=== PATIENT | female | born 1955 | race Caucasian/White ===

== ENCOUNTER 2021-03-26 13:55 | Outpatient (RCR) | payer OTHER, SELFPAY ==
[2021-03-26 14:16] VITALS: BMI 34.8
[2021-03-26 14:20] VITALS: BMI 34.8
== END 2021-06-10 11:32 | disposition home or self-care (01) ==
LOC: ANHDMC 13:55
PROVIDERS: PCP Internal Medicine; Visit Provider Nurse Practitioner
DX: E11.9 Type 2 diabetes mellitus without complications (principal); Z71.3 Dietary counseling and surveillance
CPT/HCPCS: 97802

== ENCOUNTER 2021-05-10 08:33 | Outpatient (CLI) | payer OTHER, SELFPAY ==
--- NOTE | ~2021-05-10 | MM_ITS ---
EXAMINATION: MM screening [facility] BI w [facility] HISTORY: Screening mammogram TECHNIQUE: Craniocaudal and mediolateral oblique 3-D tomosynthesis images were obtained and synthetic 2-D images were generated. CAD analysis was submitted and interpreted. COMPARISON: 09/09/2013, 08/31/2013 BREAST PARENCHYMAL COMPOSITION: The breasts are almost entirely fatty. FINDINGS: There is no evidence of suspicious mass, calcification, or architectural distortion to sugg est malignancy in either breast. There has been no suspicious interval change. IMPRESSION: 1. No mammographic evidence of malignancy. 2. Recommend routine screening mammography in one year. BI-RADS Category 1: Negative Reviewed, dictated and finalized at location A.
--- NOTE | ~2021-05-10 | DEXA_ITS ---
Bone Density Report Name: Heidy Kaufman Age: 65 Sex: Female Ethnicity: White Date of : 1955 Indication: postmenopausal; prior fracture; Referring Provider: Carlota Kumar Study: Bone densitometry was performed. Exam Date: May 10, 2021 Accession number: [id number] Bone Density: Region BMD T-score Z-score Classification AP Spine (L1-L4) 1.161 1.0 2.8 Normal Femoral Neck (Left) 0.962 1.0 2.5 Normal Total Hip (Left) 1.069 1.0 2.3 Normal Total Hip Bilateral Avg 1.064 1.0 2.3 Normal Femoral Neck (Right) 0.966 1.1 2.6 Normal Total Hip (Right) 1.058 1.0 2.2 Normal World Health Organization criteria for BMD impression classify patients as: Normal (T-score at or above -1.0), Osteopenia (T-score between -1.0 and -2.5), or Osteoporosis (T-score at or below -2.5). 10-year Fracture Risk: FRAX not reported because: All T-scores for Spine Total, Hip Total, Femoral Neck at or above -1.0 Clinical Information Provided by Patient: Has had a low trauma fracture Has used the following medications: Vitamin D, Calcium Patient maximum height was 66 Menopause Age: 60 No regular weight bearing exercise Drinks caffeinated beverages Onset of menses at age 14 Number of children 0 Impression: The patient has normal bone mass. The patient has risk factors, including: previous fracture. Discussion: LOW RISK OF FRACTURE; BONE DENSITY IS WELL ABOVE THE MINIMUM DESIRABLE LEVEL AND ABOVE AVERAGE FOR AGE AND SEX AT ALL SKELETAL SITES TESTED. This person's bone density is above expected limits for age and sex. This is rarely clinically significant, but should be pursued if there are significant musculoskeletal complaints. The patient should follow a healthful lifestyle (good nutrition with adequate calcium and vitamin D, and appropriate weight-bearing exercise). Follow-Up: Consider repeating this study in 5 years or sooner if there is some new clinical indication. Reported by: [facility] on 05/10/2021 9:24:00 AM. Reviewed, dictated and finalized at location AJulisa PIMENTEL
== END 2021-05-10 08:34 | disposition home or self-care (01) ==
LOC: ANHIMG 08:35
PROVIDERS: PCP Internal Medicine; Visit Provider Nurse Practitioner
DX: Z78.0 Asymptomatic menopausal state (principal); Z12.31 Encounter for screening mammogram for malignant neoplasm of breast
CPT/HCPCS: 77063; 77067; 77080

== ENCOUNTER 2021-07-31 13:42 | Emergency (ER) | payer MEDICARE, MEDICAID, SELFPAY ==
--- NOTE | ~2021-07-31 | XR_ITS ---
XR chest 2V DATE: 07/31/2021 14:39 INDICATION: Cough, chest congestion TECHNIQUE: 2 views COMPARISON: None FINDINGS: Cardiomegaly. There is mild pulmonary vascular congestion and redistribution suggesting mil d congestive heart failure. Minimal infiltrate or atelectasis is suggested in the lower lung zones. There is minimal if any pleur al effusion. No pneumothorax. No hilar or mediastinal enlargement. There is prominent levoscoliosis and degenerative change of the thoracolumbar spine. Diffuse osteopen ia. IMPRESSION: Cardiomegaly, mild pulmonary vascular congestion, suggesting mild congestive heart failur e Minimal infiltrate or atelectasis is suggested in the lower lung zones Reviewed, dictated and finalized at location A. IMPRESSION: Cardiomegaly, mild pulmonary vascular congestion, suggesting mild c ongestive heart failure Minimal infiltrate or atelectasis is suggested in the lower lung zones
--- NOTE | 2021-07-31 13:58 | ED.URI ---
HPI - URI/Sore Throat General Chief Complaint: Upper Respiratory Infection Stated Complaint: Chest Congestion Time Seen by Provider: 07/31/21 13:58 Source: patient, family, RN notes reviewed and old records reviewed Mode of arrival: ambulatory Limitations: no limitations History of Present Illness HPI Narrative: 66-year-old female accompanied by family member presents to [facility] care with complaints of ear fullness, sinus congestion, occasional loose cough. Patient denies any fevers,chills or sweats or any body aches. Patient has had COVID vaccinations and does reside in an assistive living facility.Patient denies any shortness of breath or any tachypnea, denies any body aches, denies any swelling of lower extremities.Patient did have pneumonia when in third grade that required insertion of chest tubes to drain lungs. Pertinent past history: pneumonia Related Data Home Medications Medication Instructions Recorded Confirmed ergocalciferol (vitamin D2) 1.25 mcg PO WEEKLY 07/31/21 07/31/21 Allergies Allergy/AdvReac Type Severity Reaction Status Date / Time Penicillins AdvReac Intermediate Hives Verified 07/31/21 14:24 Review of Systems Review of Systems: CONSTITUTIONAL: Denies fever, chills, or sweats. EYES: Denies visual changes, redness, or discharge. ENT: Positive rhinorrhea, congestion, no sore throat, bilateral ear fullness. CARDIOVASCULAR: Denies chest pain, palpitations, or edema. RESPIRATORY: Positive cough no dyspnea. GASTROINTESTINAL: Denies abdominal pain, nausea, vomiting, or diarrhea. GENITOURINARY: Denies dysuria or hematuria. SKIN: Denies rash or itching. MUSCULOSKELETAL: Denies back pain, joint pain, or myalgia. NEUROLOGIC: Denies headache, numbness, or weakness. PSYCHIATRIC: Denies anxiety or depression. All systems reviewed & are unremarkable except as noted in HPI and below PMFSH Past Medical History Medical History (Updated 07/31/21 @ 15:11 by Concha Salgado NP) Allergies Elevated cholesterol Hypertension Type 2 diabetes mellitus without complications Surgical History Surgical History (Updated 07/31/21 @ 14:36 by Concha Salgado NP) History of cataract surgery 2005 History of lung surgery 1965 History of tonsillectomy and adenoidectomy Family History Family History Father Hypertension Cerebrovascular accident Mother Diabetes mellitus Cerebrovascular accident Sibling Diabetes mellitus Hypertension Cerebrovascular accident Social History Social History Smoking status: Never smoker Alcohol intake: never Substance use: never Spiritual care concerns: No Comments At time of signature, agree with nursing past medical, surgical, social and family history. There is no relevant family history pertinent to the presenting complaint Exam Narrative: GENERAL: Well-appearing, well-nourished, and in no acute distress. HEAD: Normocephalic, atraumatic. EYES: PERRLA and EOMI. ENT: Nares red with clear rhinorrhea, no epistaxis. Mucous membranes moist.TM's normal with dull light reflex, some dry exudates in ear canals, throat with mild redness no lesions or exudates, tonsils absent, post nasal drainage NECK: Supple.no lymphadenopathy CHEST: late expiratory wheeze left upper lobe on auscultation decreased in bases. No respiratory distress.SAO2 95% on room air HEART: Regular rate and rhythm. No murmur heard. Normal peripheral pulses. ABDOMEN: Soft, nontender, nondistended, normal active bowel sounds. EXTREMITIES: Normal range of motion. No edema. SKIN: Warm, dry, no rash. NEURO: No focal deficits. Alert and oriented x3. Course Vital Signs Vital signs: Vital Signs Temperature 36.8 C 07/31/21 14:04 Pulse Rate 102 H 07/31/21 14:04 Respiratory Rate 18 07/31/21 14:04 Blood Pressure 161/77 H 07/31/21 14:04 Pulse Oximetry 95 07/31/21 14:04 Temperatur
[2021-07-31 14:04] VITALS: BP 161/77; PULSE 102; RESP 18; TEMP 36.8; O2SAT 95
[2021-08-01 17:37] LABS: SARS-CoV-2 RNA PCR Negative
== END 2021-07-31 15:28 | disposition home or self-care (01) ==
PROVIDERS: Emergency Provider Registered Nurse; PCP Internal Medicine
DX: J06.9 Acute upper respiratory infection, unspecified (principal); R91.8 Other nonspecific abnormal finding of lung field; Z20.822 Contact with and (suspected) exposure to COVID-19; E78.00 Pure hypercholesterolemia, unspecified; I10 Essential (primary) hypertension; E11.9 Type 2 diabetes mellitus without complications
CPT/HCPCS: 71046; 87426; 99213; C9803; G0463; U0003; U0005

== ENCOUNTER 2021-08-12 10:48 | Outpatient (CLI) | payer MEDICARE, MEDICAID, SELFPAY ==
--- NOTE | ~2021-08-12 | CT_ITS ---
EXAMINATION: CTA chest PE protocol DATE: 08/12/2021 11:25 INDICATION: Hypoxemia. TECHNIQUE: Computed tomography angiography (CTA) of the chest was performed with 100 mL Omnipaque-350 intravenous contrast timed to evaluate the pulmonary arteries. Coronal maximum intensity projection 3D-reconstructions were created by the technologist. Automated exposure control and iterative reconst ruction technique were employed. The dose-length product was 578.78 mGy-cm. COMPARISON: Chest 2 views 07/31/2021 FINDINGS: There is mild atelectasis bilaterally. A calcified right lung nodule and calcified right hi lar lymph nodes are consistent with old granulomatous disease. No pleural effusion. There is a 7 mm n odule in right thyroid lobe, likely not clinically significant. Cardiomegaly is noted. No pericardial effusion. There are coronary artery calcifications. There is no pulmonary embolus. There is a 15 mm cyst in the liver. There is thoracolumbar levoscoliosis and severe spondylosis. IMPRESSION: 1. No pulmonary embolus. Sensitivity is severely decreased in the segmental arteries by motion artifa ct. 2. Cardiomegaly. Reviewed, dictated and finalized at location A. IMPRESSION: 1. No pulmonary embolus. Sensitivity is severely decreased in the segmental art eries by motion artifact. 2. Cardiomegaly.
[2021-08-12 11:24] LABS: Estimated Glomerular Filt Rate 41
[2021-08-12 12:10] LABS: Basophils Percent Auto 0.2 % (0.2-1.2); Eosinophils Absolute Auto 0.5 K/mm3 (0-0.3); Eosinophils Percent Auto 3.8 % (0-4.4); Hematocrit 46.3 % (37.0-47.0); Hemoglobin 14.5 g/dL (12.0-15.0); Immature Granulocyte Absolute 0.11 K/mm3 (0.00-0.031); Immature Granulocyte Percent A 0.8 % (0-0.5); Lymphocytes Absolute Auto 2.63 K/mm3 (0.9-3.2); Lymphocytes Percent Auto 19.1 % (18.3-44.2); Mean Corpuscular HGB Conc 31.3 g/dl (32-36); Mean Corpuscular Hemoglobin 29.2 pg (26-34); Mean Corpuscular Volume 93.3 fl (80-100); Mean Platelet Volume 10.3 fl (7.4-10.4); Monocytes Absolute Auto 0.8 K/mm3 (0.1-0.6); Monocytes Percent Auto 5.5 % (2.6-8.5); Neutrophils Absolute Auto 9.7 K/mm3 (1.3-6.7); Neutrophils Percent Auto 70.6 % (45.5-73.1); Platelet Count Result 233 k/mm3 (150-375); Red Blood Count 4.96 M/mm3 (4.2-5.4); Red Cell Distribution Width 13.5 % (11.5-14.5); White Blood Count 13.7 K/mm3 (4.5-10.0)
[2021-08-12 12:24] LABS: Alanine Aminotransferase 39 U/L (4-35); Albumin Level 4.7 g/dL (3.5-5.1); Alkaline Phosphatase 101 U/L (38-126); Anion Gap 7 mmol/L (8-16); Aspartate Amino Transferase 36 U/L (14-36); Bilirubin,Total 1.1 mg/dL (0.2-1.3); Blood Urea Nitrogen 38 mg/dL (7-17); Calcium 10.8 mg/dL (8.4-10.2); Carbon Dioxide 32 mmol/L (22-30); Chloride 100 mmol/L (98-107); Estimated Glomerular Filt Rate 45; Glucose 181 mg/dL (65-110); Potassium 5.4 mmol/L (3.4-5.0); Sodium 139 mmol/L (137-145)
[2021-08-12 12:34] LABS: NT Pro B Type Natriuretic Pept 36 pg/mL (5-100)
== END 2021-08-12 10:49 | disposition home or self-care (01) ==
PROVIDERS: PCP Internal Medicine; Visit Provider Nurse Practitioner
DX: R09.02 Hypoxemia (principal); Z76.89 Persons encountering health services in other specified circumstances; R53.82 Chronic fatigue, unspecified; I50.9 Heart failure, unspecified
CPT/HCPCS: 71275; 80053; 83880; 84443; 85025; Q9967

== ENCOUNTER 2021-08-14 08:28 | Outpatient (CLI) | payer MEDICARE, MEDICAID, SELFPAY ==
--- NOTE | 2021-08-14 08:57 | ECHO_ITS ---
Patient Info Name: Heidy Kaufman Age: 66 years : 1955 Gender: Female Ht: 66 in Wt: 217 lbs BSA: 2.18 m2 HR: 103 bpm BP: 148 / 97 mmHg Heart Rhythm: Sinus Rhythm, Tachycardia Technical Quality: Fair Exam Date: 08/14/2021 9:18 AM Exam Location: [facility] Patient Status: Outpatient Admit Date: 08/14/2021 Staff Ordering Physician: Carlota Kumar NP Watch Electrician: Meghann Gonzalez RDCS Attending Provider: Carlota Kumar NP Referring Physician: Stacy ALANIS; Exam Type: CA echo doppler color flow Study Info Indications - heart failure Complete two-dimensional, color flow and Doppler transthoracic echocardiogram is performed. Summary 1. Complete two-dimensional, color flow and Doppler transthoracic echocardiogram is performed. 2. Normal left ventricular size with mild concentric hypertrophy. Good systolic function of all segments, ejection fraction 60-65%, with no segmental wall motion abnormalities. Diastolic dysfunction grade 1 is present. 3. No significant valve disease. 4. Mild pulmonary hypertension, estimated pulmonary arterial systolic pressure is 41 mmHg. 5. Normal sinus rhythm. Left Ventricle Left ventricular chamber dimension is normal. Left ventricular systolic function is normal, estimated at 60-65%. There is mildly increased left ventricular wall thickness. Left ventricular septal wall motion is normal. The left ventricular diastolic function is grade I diastolic dysfunction. Right Ventricle Right ventricular chamber dimension is normal. Right ventricular systolic function is normal. Left Atria Left atrial chamber dimension is normal. Right Atria Right atrial chamber dimension is normal. Aortic Valve The aortic valve is trileaflet. There is no aortic valve sclerosis. There is no aortic valve stenosis. There is no aortic valve regurgitation. Pulmonic Valve The pulmonic valve is normal. There is no pulmonic valve stenosis. There is trace pulmonic regurgitation. Mitral Valve The mitral valve has normal leaflets. There is no mitral valve stenosis. There is trace mitral valve regurgitation. Tricuspid Valve The tricuspid valve leaflets are normal. There is no significant tricuspid valve stenosis. There is trace tricuspid valve regurgitation. Mild pulmonary hypertension, estimated pulmonary arterial systolic pressure is 41 mmHg. Pericardium/Pleural The pericardium appears normal. There is no pericardial effusion. Inferior Vena Cava Normal inferior vena cava with >50% collapse upon inspiration consistent with Empty right atrial pressure, 10 mmHg. Aorta The aortic root size at the sinus of Valsalva is normal. The prox ascending aorta size is normal. Left Ventricular Outflow Tract Name Value Normal LVOT 2D LVOT Diameter 2.0 cm LVOT Doppler LVOT Peak Gradient 7 mmHg LVOT Mean Gradient 4 mmHg LVOT VTI 20 cm LVOT VTI/AV VTI Ratio 0.8 LVOT Stroke Volume 59 ml LVOT CO
== END 2021-08-14 08:29 | disposition home or self-care (01) ==
PROVIDERS: PCP Internal Medicine; Visit Provider Nurse Practitioner
DX: I50.9 Heart failure, unspecified (principal); I27.20 Pulmonary hypertension, unspecified
CPT/HCPCS: 93306

== ENCOUNTER 2021-08-15 10:01 | Outpatient (CLI) | payer MEDICARE, MEDICAID, SELFPAY ==
--- NOTE | 2021-08-15 13:05 | WPDPFTINT ---
PFT Procedure Performed PFT Procedure Performed Plethysmography (Lung Vol) Diffusing Cap (DLCO) Flow Vol Loop Spirometry w/o Bronchodil PFT Interpretation This is a pulmonary function test with spirometry, plethysmography and diffusing capacity. The test was performed and results interpreted in accordance with the 2019 and 2005 ATS/ERS Task Force guidelines respectively using the Global Lung Function Initiative-2012 reference equations. Patient demonstrated good effort and cooperation. Reproducibility criteria were met. The quality of the pre bronchodilator spirometry maneuver was Grade A. Of note the patient did the testing to the best of her ability but did have difficulty following directions. Findings Spirometry: The contour the inspiratory and expiratory flow tracing are normal. The FVC is 1.48 L, 46% predicted. The FEV1 is 1.27 L, 50% predicted. The FEV1: FVC ratio was 86%. Plethysmography: The total lung capacity is 3.95 L, 74% predicted. The functional residual capacity is 1.99 L, 65% predicted. The residual volume is 1.92 L, 88% predicted. Diffusing capacity: The absolute diffusion capacity is 14.3, 65% predicted. The diffusing capacity corrected for alveolar volume is 5.01, 117% predicted. Impression: There is a moderately severe restrictive ventilatory abnormality. The spirometry is normal without evidence of an obstructive abnormality. The absolute diffusing capacity is mildly decreased and normalizes when corrected for alveolar volume. There are no prior studies for comparison
== END 2021-08-15 10:02 | disposition home or self-care (01) ==
LOC: ANHPFT 10:04
PROVIDERS: PCP Internal Medicine; Visit Provider Nurse Practitioner
DX: R06.02 Shortness of breath (principal)
CPT/HCPCS: 94375; 94726; 94729

== ENCOUNTER 2021-08-23 13:23 | Outpatient (CLI) | payer MEDICARE, MEDICAID, SELFPAY ==
--- NOTE | ~2021-08-23 | NM_ITS ---
EXAMINATION: NM pulmonary perfusion DATE: 08/23/2021 14:14 INDICATION: Hypoxemia. TECHNIQUE: 5.5 mCi Tc-99m MAA was administered intravenously for perfusion images. Scintigraphic jaswinder ges of the chest were obtained. COMPARISON: Chest 2 views 08/23/2021, chest CT 08/12/2021 FINDINGS: Perfusion images show small defects bilaterally. IMPRESSION: 1. Pulmonary embolism absent (low probability for pulmonary embolism). Reviewed, dictated and finalized at location A.
--- NOTE | ~2021-08-23 | XR_ITS ---
XR chest 2V 08/23/2021 14:10 Indication: Hypoxemia Procedure: PA and lateral views of the chest Comparison: 07/31/2021 Findings: Patchy bibasilar airspace disease, compatible with pneumonia. No pleural effusion or pneumo thorax. No acute osseous abnormality. There is scoliosis. Impression: 1: Patchy bibasilar airspace disease, compatible with pneumonia. Reviewed, dictated and finalized at location A. Impression: 1: Patchy bibasilar airspace disease, compatible with pneumonia.
== END 2021-08-23 13:24 | disposition home or self-care (01) ==
LOC: ANHIMG 13:24
PROVIDERS: PCP Internal Medicine; Visit Provider Internal Medicine
DX: R09.02 Hypoxemia (principal); R91.8 Other nonspecific abnormal finding of lung field
CPT/HCPCS: 71046; 78580; A9540

== ENCOUNTER 2021-10-28 07:53 | Outpatient (CLI) | payer MEDICARE, MEDICAID, SELFPAY ==
--- NOTE | 2021-11-07 12:36 | WPDSLEEPSTUD ---
Sleep Study Date of Study: 10/28/21 <Sabrina Jain DO - Last Filed: 11/07/21 17:12> Ordering Provider: Arnold Martinez MD <Sabrina Jain DO - Last Filed: 11/07/21 17:12> Interpreting Physician: Sabrina Jain DO <Sabrina Jain DO - Last Filed: 11/07/21 17:12> Sleep Study Type: CPAP Titration <Sabrina Jain DO - Last Filed: 11/07/21 17:12> Height: 1.68 m <Sabrina Jain DO - Last Filed: 11/07/21 17:12> Weight: 100.244 kg <Sabrina Jain DO - Last Filed: 11/07/21 17:12> Body Mass Index: 35.6 <Sabrina Jain DO - Last Filed: 11/07/21 17:12> Neck Circumference (inches): 17.5 <Sabrina Jain DO - Last Filed: 11/07/21 17:12> [place]: 14 <Sabrina Jain DO - Last Filed: 11/07/21 17:12> Reason for Sleep Study Residual AHI of 18.4 on CPAP 10 cm H2O. <Sabrina Jain DO - Last Filed: 11/07/21 17:12> Sleep History The patient is a 66 y/o female that had a HSAT done on 09/12/2020 at [facility] in [place], [place] that showed an AHI 104.6 and a central apnea index of 0. Her lowest desaturation was 43%. She was prescribed CPAP 10 cm H2O. She was recently placed on home oxygen at 2 lpm to use when exerting herself. She does not use it every day. She states that she sleeps better with the CPAP. She rarely awakens from sleep short of breath. She rarely awakens at night with heartburn, belching or cough. She frequently snores loud enough that others complain. She occasionally has trouble sleeping when she has a cold. She rarely wakes up gasping for air throughout the night. She frequently has breathing problems at night observed by others. She rarely sweats excessively at night. She denies noticing heart palpitations or irregular heartbeats during the night. She occasionally falls asleep during the day. She denies sleep paralysis, cataplexy and hypnagogic / hypnopompic hallucinations. She rarely has nightmares. She rarely has thoughts racing through her mind. She denies feeling sad or depressed. She frequently has anxiety. She occasionally notices parts of her body jerk. She occasionally kicks during the night. She rarely has crawling and aching feelings in her legs. She denies having leg pain during the night. She goes to bed at 10:00 p.m. on both weekdays and weekends. It takes her 5-10 minutes to fall asleep. She usually does not wake up throughout the night. If she does, she will use the restroom and it can take up to 30 minutes to fall back asleep. She wakes up at 6:00 a.m. on weekdays and between 6 and 7:00 a.m. on the weekends. She typically gets 6 hours of sleep per night. She will stay in bed for 10-15 minutes after waking up in the morning. She currently lives alone. She does not consume any caffeinated beverages within 2 hours of bedtime. She does not engage in physical exercise before bedtime. She will watch television before falling asleep. She will take naps in the afternoon or the evening and they are refreshing. She denies consuming any caffeinated beverages throughout the day. She denies tobacco, alcohol and recreational drug use. CPAP Compliance Data Time Range: 07/22/2021-10/19/2021 Pressure Setting: CPAP 10 cm H2O Days Used:84/90 days % of days > 4 hours:44% Residual AHI: 18.4 Leak: 33.1 L/min <Sabrina Jain DO - Last Filed: 11/07/21 17:12> [facility] Past Medical History Medical History: Medical History Allergies CHF (congestive heart failure) CKD (chronic kidney disease) Elevated cholesterol Hypertension Type 2 diabetes mellitus without complications <Sabrina Jain DO - Last Filed: 11/07/21 17:12> Surgical History Surgical History: Surgical History History of cataract surgery 2004 History of lung surgery 1965 History
[2021-11-07 17:03] VITALS: BMI 35.6
== END 2021-10-29 06:03 ==
LOC: ANHCSM 07:56
PROVIDERS: PCP Internal Medicine; Visit Provider Internal Medicine Pulmonary Disease
DX: G47.33 Obstructive sleep apnea (adult) (pediatric) (principal); R09.02 Hypoxemia
CPT/HCPCS: 95811

== ENCOUNTER 2021-11-18 08:20 | Outpatient (CLI) | payer MEDICARE, MEDICAID, SELFPAY ==
--- NOTE | 2021-11-26 11:57 | WPDSLEEPSTUD ---
Sleep Study Date of Study: 11/18/21 <Sabrina Jain DO - Last Filed: 11/26/21 12:39> Ordering Provider: RENITA Bai <Sabrina Jain DO - Last Filed: 11/26/21 12:39> Interpreting Physician: Sabrina Jain DO <Sabrina Jain DO - Last Filed: 11/26/21 12:39> Sleep Study Type: BiPAP Titration <Sabrina Jain DO - Last Filed: 11/26/21 12:39> Height: 1.68 m <Sabrina Jain DO - Last Filed: 11/26/21 12:39> Weight: 102.058 kg <Sabrina Jain DO - Last Filed: 11/26/21 12:39> Body Mass Index: 36.3 <Sabrina Jain DO - Last Filed: 11/26/21 12:39> Neck Circumference (inches): 17.5 <Sabrina Jain DO - Last Filed: 11/26/21 12:39> [place]: 17 <Sabrina Jain DO - Last Filed: 11/26/21 12:39> Reason for Sleep Study The patient had an HSAT in August 2020 that showed an AHI of 104.6 which is consistent with severe PAUL. The patient has been on CPAP 10 cm with a residual AHI of 18.4. She had a PAP Titration study on 10/28/2021 where the patient was started on CPAP 5 cm and titrated to 19 cm. She spent the majority of the study awake. She was able to achieve REM starting on 15 cm. There was no optimal pressure found. I recommend that the patient have a BPAP Titration starting at 12/8 cm H2O. <Sabrina Jain DO - Last Filed: 11/26/21 12:39> Sleep History The patient is a 66 y/o female that had a HSAT done on 09/12/2020 at [facility] in [place], [place] that showed an AHI 104.6 and a central apnea index of 0. Her lowest desaturation was 43%. She was prescribed CPAP 10 cm H2O. She was recently placed on home oxygen at 2 lpm to use when exerting herself. She does not use it every day. She states that she sleeps better with the CPAP. She rarely awakens from sleep short of breath. She rarely awakens at night with heartburn, belching or cough. She frequently snores loud enough that others complain. She occasionally has trouble sleeping when she has a cold. She rarely wakes up gasping for air throughout the night. She frequently has breathing problems at night observed by others. She rarely sweats excessively at night. She denies noticing heart palpitations or irregular heartbeats during the night. She occasionally falls asleep during the day. She denies sleep paralysis, cataplexy and hypnagogic / hypnopompic hallucinations. She rarely has nightmares. She rarely has thoughts racing through her mind. She denies feeling sad or depressed. She frequently has anxiety. She occasionally notices parts of her body jerk. She occasionally kicks during the night. She rarely has crawling and aching feelings in her legs. She denies having leg pain during the night. She goes to bed at 10:00 p.m. on both weekdays and weekends. It takes her 5-10 minutes to fall asleep. She usually does not wake up throughout the night. If she does, she will use the restroom and it can take up to 30 minutes to fall back asleep. She wakes up at 6:00 a.m. on weekdays and between 6 and 7:00 a.m. on the weekends. She typically gets 6 hours of sleep per night. She will stay in bed for 10-15 minutes after waking up in the morning. She currently lives alone. She does not consume any caffeinated beverages within 2 hours of bedtime. She does not engage in physical exercise before bedtime. She will watch television before falling asleep. She will take naps in the afternoon or the evening and they are refreshing. She denies consuming any caffeinated beverages throughout the day. She denies tobacco, alcohol and recreational drug use. CPAP Compliance Data Time Range: 07/22/2021-10/19/2021 Pressure Setting: CPAP 10 cm H2O Days Used:84/90 days % of days > 4 hours:44% Residual AHI: 18.4 Leak: 33.1 L/min <Sabrina Jain, - Last Filed: 11/26/21 12:39> [facility] Past Medical History Medical History: Medical History (Reviewed 11/26/21 @ 1
[2021-11-26 11:58] VITALS: BMI 36.3
== END 2021-11-19 07:17 | disposition home or self-care (01) ==
LOC: ANHCSM 08:22
PROVIDERS: PCP Internal Medicine; Visit Provider Physician Assistant
DX: G47.31 Primary central sleep apnea (principal); G47.61 Periodic limb movement disorder
CPT/HCPCS: 95811

== ENCOUNTER 2021-12-09 07:42 | Outpatient (CLI) | payer MEDICARE, MEDICAID, SELFPAY ==
--- NOTE | 2021-12-16 14:59 | WPDSLEEPSTUD ---
Sleep Study Date of Study: 12/09/21 Ordering Provider: Arnold Martinez MD Interpreting Physician: Lizzie Morgan MD Sleep Study Type: ASV Height: 1.68 m Weight: 101.605 kg Body Mass Index: 36.1 Neck Circumference (inches): 18 [place]: 16 Reason for Sleep Study 09/12/2020 - HST with AHI 104.6, minimum saturation 43%, avg saturation 87%; no central events. She was treated with CPAP 10 cm and O2 was added in the daytime for hypoxemia. 08/14/2021 - Echo; EF 60-65%. 10/28/2021 -CPAP titration without optimal pressure, attempted 5 cm to 19 cm 11/18/2021 - BiPAP titration without optimal pressure; treatment emergent central apneas occurred consistent with complex sleep apnea. Patient presents now for ASV titration. Sleep History Heidy Kaufman is a 66 year old female with a home sleep test at [facility] in [place], [place] 09/12/2020 showing an AHI 104.6 and a central apnea index of 0. Her lowest desaturation was 43%. She was prescribed CPAP 10 cm H2O. She was then placed on home oxygen at 2 lpm to use when exerting herself. She does not use it every day. She states that she sleeps better with the CPAP. She rarely awakens from sleep short of breath. She rarely awakens at night with heartburn, belching or cough. She frequently snores loud enough that others complain. She occasionally has trouble sleeping when she has a cold. She rarely wakes up gasping for air throughout the night. She frequently has breathing problems at night observed by others. She rarely sweats excessively at night. She denies noticing heart palpitations or irregular heartbeats during the night. She occasionally falls asleep during the day. She denies sleep paralysis, cataplexy and hypnagogic / hypnopompic hallucinations. She rarely has nightmares. She rarely has thoughts racing through her mind. She denies feeling sad or depressed. She frequently has anxiety. She occasionally notices parts of her body jerk. She occasionally kicks during the night. She rarely has crawling and aching feelings in her legs. She denies having leg pain during the night. She goes to bed at 10:00 p.m. on both weekdays and weekends. It takes her 5-10 minutes to fall asleep. She usually does not wake up throughout the night. If she does, she will use the restroom and it can take up to 30 minutes to fall back asleep. She wakes up at 6:00 a.m. on weekdays and between 6 and 7:00 a.m. on the weekends. She typically gets 6 hours of sleep per night. She will stay in bed for 10-15 minutes after waking up in the morning. She currently lives alone. She does not consume any caffeinated beverages within 2 hours of bedtime. She does not engage in physical exercise before bedtime. She will watch television before falling asleep. She will take naps in the afternoon or the evening and they are refreshing. She denies consuming any caffeinated beverages throughout the day. She denies tobacco, alcohol and recreational drug use. CPAP Compliance Data Time Range: 07/22/2021-10/19/2021 Pressure Setting: CPAP 10 cm H2O Days Used:84/90 days % of days > 4 hours:44% Residual AHI: 18.4 Leak: 33.1 L/min After using CPAP at 10 cm, she had a CPAP titration 10/28/21 and a BIPAP titration 11/18/2021 with treatment emergent central apneas. She has a normal EF. She now presents for an ASV titration. [facility] Past Medical History Medical History (Updated 12/16/21 @ 15:54 by Lizzie Morgan MD) Allergies CHF (congestive heart failure) CKD (chronic kidney disease) Elevated cholesterol Hypertension PAUL (obstructive sleep apnea) Periodic limb movement disorder Type 2 diabetes mellitus without complications Surgical History Surgical History History of cataract surgery 2004 History of lung surgery 1965 History of tonsillectomy and adenoidectomy Family History Family History Father Hypertensi
[2021-12-17 15:47] VITALS: BMI 36.1
== END 2021-12-10 07:06 | disposition home or self-care (01) ==
LOC: ANHCSM 07:43
PROVIDERS: PCP Internal Medicine; Visit Provider Internal Medicine Pulmonary Disease
DX: G47.31 Primary central sleep apnea (principal); G47.61 Periodic limb movement disorder; Z68.36 Body mass index [BMI] 36.0-36.9, adult
CPT/HCPCS: 95811

== ENCOUNTER 2022-06-23 07:57 | Outpatient (CLI) | payer MEDICARE, MEDICAID, SELFPAY ==
--- NOTE | ~2022-06-23 | MM_ITS ---
EXAMINATION: MM screening [facility] BI w keeley HISTORY: Screening mammogram TECHNIQUE: Craniocaudal and mediolateral oblique 3-D tomosynthesis images were obtained and synthetic 2-D images were generated. CAD analysis was submitted and interpreted. COMPARISON: 05/10/2021, 09/09/2013, 08/31/2013 BREAST PARENCHYMAL COMPOSITION: There are scattered areas of fibroglandular density. FINDINGS: There is no suspicious mass, calcification, or architectural distortion to suggest malignan cy in either breast. There has been no suspicious interval change. IMPRESSION: 1. No mammographic evidence of malignancy. 2. Recommend routine screening mammography in one year. BI-RADS Category 1: Negative Reviewed, dictated and finalized at location A.
== END 2022-06-23 07:58 | disposition home or self-care (01) ==
LOC: ANHIMG 08:00
PROVIDERS: PCP Internal Medicine; Visit Provider Internal Medicine
DX: Z12.31 Encounter for screening mammogram for malignant neoplasm of breast (principal)
CPT/HCPCS: 77063; 77067

== ENCOUNTER 2022-08-07 12:30 | Outpatient (CLI) | payer MEDICARE, MEDICAID, SELFPAY ==
[2022-08-07 13:00] VITALS: PULSE 100; O2SAT 92
[2022-08-07 13:01] VITALS: O2SAT 87
[2022-08-07 13:02] VITALS: O2SAT 87
[2022-08-07 13:03] VITALS: PULSE 124; O2SAT 91
[2022-08-07 13:15] VITALS: PULSE 99; O2SAT 93
--- NOTE | 2022-08-07 15:23 | HOMEO2EVAL ---
Evaluation was performed at [facility] Home Oxygen Evaluation RC: Home Oxygen (O2) Evaluation Start: 08/07/22 15:21 Freq: Status: Active Protocol: RPE Activity Type Activity Date Activity User E-sign Co-sign Detail Recorded Client Recorded Date Recorded By Document 08/07/22 13:00 MARITZA [email or web address] 08/07/22 15:23 MARITZA Document 08/07/22 13:01 MARITZA [email or web address] 08/07/22 15:23 MARITZA Document 08/07/22 13:02 MARITZA [email or web address] 08/07/22 15:23 MARITZA Document 08/07/22 13:03 MARITZA [email or web address] 08/07/22 15:23 MARITZA Document 08/07/22 13:15 MARITZA [email or web address] 08/07/22 15:23 MARITZA 08/07/22 08/07/22 08/07/22 13:00 13:01 13:02 Home O2 Evaluation [Oxygen] -Test Phase Resting Exercise Exercise -Oxygen Delivery Room Air Room Air Nasal Cannula -Oxygen Flow Rate (L/min) 1 [Pulse Oximetry] -Pulse Oximetry (90-100 %) 92 87 L 87 L [Pulse Rate] -Pulse Rate (60-100 beats/min) 100 [Evaluation] -Activity Tolerance [Exercise] -Ambulation Distance (feet) -Ambulation Distance (meters) [Comments] -Home Oxygen Evaluation Comments [Charges] -Treatment Charges O2 Evaluation - Outpatient 08/07/22 08/07/22 13:03 13:15 Home O2 Evaluation [Oxygen] -Test Phase Exercise Resting -Oxygen Delivery Nasal Cannula Room Air -Oxygen Flow Rate (L/min) 2 [Pulse Oximetry] -Pulse Oximetry (90-100 %) 91 93 [Pulse Rate] -Pulse Rate (60-100 beats/min) 124 H 99 [Evaluation] -Activity Tolerance Excellent [Exercise] -Ambulation Distance (feet) 800 -Ambulation Distance (meters) 243.82 [Comments] -Home Oxygen Evaluation Comments Pt requires 2L O2 with activity. [Charges] -Treatment Charges
== END 2022-08-07 12:31 | disposition home or self-care (01) ==
LOC: ANHPFT 12:32
PROVIDERS: PCP Internal Medicine; Visit Provider Internal Medicine Pulmonary Disease
DX: R06.02 Shortness of breath (principal)
CPT/HCPCS: 94618

== ENCOUNTER 2022-09-29 07:15 | Outpatient (CLI) | payer MEDICARE, MEDICAID, SELFPAY ==
--- NOTE | ~2022-09-29 | NM_ITS ---
EXAMINATION: NM bone scan whole body DATE: 09/29/2022 11:28 INDICATION: Hypercalcemia TECHNIQUE: 25.7 mCi Tc-99m HDP was administered intravenously. Delayed whole-body scintigrams were o btained. COMPARISON: Chest CT dated 08/12/2021 and chest radiograph dated 08/23/2021 FINDINGS: Mild joint centered likely degenerative uptake at the bilateral acromioclavicular joints, the right w rist and at the left knee and forefoot. Mild uptake along the anterior right humeral neck which corre sponds on prior chest radiograph to dystrophic calcification versus degenerative loose bodies. There is a moderate thoracolumbar levoscoliosis with mild uptake at a chronic compression fracture of T10. No other suspicious bone lesions identified. IMPRESSION: 1. No bone lesions suspicious for metastatic disease. 2. Moderate thoracolumbar levoscoliosis with mild uptake associated with a chronic T10 compression fr acture. Reviewed, dictated and finalized at location A. IFICATIONS CHECKER IMPRESSION: 1. No bone lesions suspicious for metastatic disease. 2. Moderate thoracolumbar levoscoliosis with mild uptake associated with a business intelligence consultant morris T10 compression fracture.
== END 2022-09-29 07:16 | disposition home or self-care (01) ==
PROVIDERS: PCP Internal Medicine; Visit Provider Internal Medicine Nephrology
DX: E83.52 Hypercalcemia (principal); M41.9 Scoliosis, unspecified; M48.54XA Collapsed vertebra, not elsewhere classified, thoracic region, initial encounter for fracture
CPT/HCPCS: 78306; A9561

== ENCOUNTER → 2022-11-14 09:16 | Outpatient (CLI) | payer MEDICARE, MEDICAID, SELFPAY ==
--- NOTE | ~2022-11-14 | XR_ITS ---
EXAMINATION: BONE SURVEY/METASTATIC SURVEY DATE: 11/14/2022 INDICATION: Hypercalcemia TECHNIQUE: A skeletal survey was performed including AP views of the chest, abdomen and pelvis; AP an d lateral/lateral swimmers views of the cervical, thoracic and lumbar spine; lateral view of the skul l, and AP and lateral views of the appendicular skeleton excluding the hands and feet. COMPARISON: None. FINDINGS: No suspicious lytic or blastic bone lesions. 60 degree lumbar levoscoliosis with severe spondylosis. Mild compensatory thoracic dextroscoliosis with moderate spondylosis. Mild anterior wedging of a coup le mid thoracic vertebral bodies. Mild to moderate lower cervical predominant spondylosis with modera te to severe cervical facet osteoarthritis. Polyarticular osteoarthritis and appendicular skeleton mo st prominent at the right elbow and patellofemoral compartment of the left knee. Multiple loose osteo chondral bodies in the bilateral biceps tendon sheath is along side the medial metaphyseal regions of the proximal humeri, right greater than left. Calcified nodule at the right lung base consistent wit h old granulomatous disease. No other airspace opacities, pulmonary edema, pleural effusion or pneumo thorax. Heart size normal conifer AP technique. IMPRESSION: 1. No suspicious lytic or blastic bone lesions. 2. Extensive scattered degenerative skeletal changes most severe at the right elbow, patellofemoral c ompartment of the left knee in the lumbar spine were there is 60 degree dextroscoliosis. 3.. Reviewed, dictated and finalized at location A. E FUND ACCOUNTANT IMPRESSION: 1. No suspicious lytic or blastic bone lesions. 2. Extensive scattered degenerative skeletal changes most severe at the right e lbow, patellofemoral compartment of the left knee in the lumbar spine were ther e is 60 degree dextroscoliosis. 3..
== END ==
PROVIDERS: PCP Internal Medicine; Visit Provider Internal Medicine Nephrology
DX: E83.52 Hypercalcemia (principal); M19.021 Primary osteoarthritis, right elbow
CPT/HCPCS: 77075

== ENCOUNTER 2023-04-13 09:11 | Outpatient (CLI) | payer MEDICARE, MEDICAID, SELFPAY | END 2023-04-13 09:12 | disposition home or self-care (01) | LOC: ANHLAB 09:14 | PROVIDERS: PCP Internal Medicine; Visit Provider Internal Medicine Nephrology | DX: R82.81 Pyuria (principal) | CPT/HCPCS: 87086; 87088 ==

== ENCOUNTER 2023-09-25 09:03 | Outpatient (CLI) | payer MEDICARE, MEDICAID, SELFPAY ==
--- NOTE | ~2023-09-25 | MM_ITS ---
EXAMINATION: MM screening [facility] BI w keeley HISTORY: Screening mammogram TECHNIQUE: Craniocaudal and mediolateral oblique 3-D tomosynthesis images were obtained and synthetic 2-D images were generated. Bilateral rotated lateral CC views. CAD analysis was submitted and interp reted. COMPARISON: 06/23/2022, 05/10/2021 bilateral screening mammogram examination BREAST PARENCHYMAL COMPOSITION: The breasts are almost entirely fatty. FINDINGS: There is no evidence of suspicious mass, calcification, or architectural distortion to sugg est malignancy in either breast. There has been no suspicious interval change. IMPRESSION: 1. No mammographic evidence of malignancy. 2. Recommend routine screening mammography in one year. BI-RADS Category 1: Negative........ Reviewed, dictated and finalized at location A. MARKETING AGENT
== END 2023-09-25 09:04 | disposition home or self-care (01) ==
PROVIDERS: PCP Internal Medicine; Visit Provider Nurse Practitioner
DX: Z12.31 Encounter for screening mammogram for malignant neoplasm of breast (principal)
CPT/HCPCS: 77063; 77067

== ENCOUNTER 2024-12-12 14:36 | Emergency (ER) | payer MEDICARE, MEDICAID, SELFPAY ==
--- NOTE | 2024-12-12 14:56 | ED.FEMALEGU ---
HPI - Female Genitourinary General Chief complaint: Urogenital-Female Stated complaint: uti symptoms and blood in underwear Time Seen by Provider: 12/12/24 14:56 Source: patient and RN notes reviewed Mode of arrival: ambulatory Limitations: no limitations History of Present Illness HPI Narrative: 69 y/o female with significant medical history, including chronic kidney disease, diabetes mellitus, hypertension, presented for c/o blood in urine Stating she has noticed blood in underwear. This started while in the hospital 11/18/24. Pt was given IV abx for abnormal UA but had negative culture, additionally pt had vaginal cultures at that time. Endorses history of fecal incontinence. pt currently denies dysuria, abdominal pain, n/v/d/f/c. Related Data Home Medications ?Medication ?Instructions ?Recorded ?Confirmed ?Last Taken ?Type terbinafine HCl 250 mg tablet 250 mg PO Q48H 06/18/22 11/29/24 11/06/24 History latanoprost 0.005 % eye drops 1 drp LEFT EYE DAILY 04/11/24 11/27/24 11/06/24 History metformin 1,000 mg tablet See Rx Instructions .Route .COMPLEX 11/27/24 11/27/24 Unknown History Allergies Allergy/AdvReac Type Severity Reaction Status Date / Time Penicillins Allergy Mild Hives Verified 12/12/24 14:42 tetracycline Allergy Mild Hives Verified 12/12/24 14:42 Review of Systems Review of Systems: CONSTITUTIONAL: Denies body aches, fever, chills, or sweats. CARDIOVASCULAR: Denies chest pain, palpitations, or edema. RESPIRATORY: Denies cough or dyspnea. GASTROINTESTINAL: Denies abdominal pain, nausea, vomiting, or diarrhea. Reports fecal incontinence GENITOURINARY: denies dysuria, frequency, urgency, hematuria, flank pain SKIN: Denies rash, itching, or wounds. MUSCULOSKELETAL: Denies back pain or myalgia. [facility] Past Medical History Medical History Pacemaker Periodic limb movement disorder PAUL (obstructive sleep apnea) CKD (chronic kidney disease) CHF (congestive heart failure) Elevated cholesterol Allergies Hypertension Type 2 diabetes mellitus without complications Surgical History Surgical History History of tonsillectomy and adenoidectomy History of cataract surgery 2005 History of lung surgery 1965 Family History Family History Father Hypertension Cerebrovascular accident Mother Diabetes mellitus Cerebrovascular accident Sibling Diabetes mellitus Hypertension Cerebrovascular accident Social History Social History Social History: Caffeine-soda Smoking status: Never smoker Alcohol intake: never Substance use: never Substance use type: does not use Do You Feel Safe in your Home?: Yes Lack of Transportation: No Lack of Food: Never True Current Housing: I Have Housing Concerned About Future Housing: No Difficulty Paying Gas/Electric Bills: No Difficulty Paying for Meds: No Currently Unemployed: No Education: High School Diploma/GED Difficulty w/ Childcare or Family Care: No Living arrangements: with family Gender identity (if verbalized by the patient): Female Spiritual care concerns: No Comments At time of signature, I have reviewed and agree with nursing past medical, surgical, social and family history unless otherwise noted. Please see nursing chart for further information. There is no relevant family history pertinent to the presenting complaint Exam Narrative: GENERAL: Well-appearing and in no acute distress. ENT: Mucous membranes pink and moist. NECK: Normal AROM. Supple. CHEST: No respiratory distress. Clear to auscultation. chronic o2. HEART: Regular rate and rhythm. ABDOMEN: Soft, nontender, nondistended, normal active bowel sounds. No CVA tenderness : Unable to tolerate full Speculum Exam due to pain, small amount of bright red blood noted to the outer vaginal area. Labia appears mildly swollen, no lacerations, nontender.Chaperoned by Kelsey SILVA SKIN: Warm, dry NEURO: No focal deficits. Alert and oriented x3. Gait steady with walker. PSYCH: Normal affect. Course Course Emergency Course: Patient is aware of diagnosis, understands and agrees to treatment plan. Anticipatory guidance given. Patient agrees to follow-up as directed and is aware of reasons to seek care at the emergency department. Portions of this record may have been created with voice recognition software Level of Care: Express Care Visit Vital Signs Vital signs: Vital Signs Temperature 96.8 F L 12/12/24 14:59 Pulse Rate 66 12/12/24 14:59 Respiratory Rate 16 12/12/24 14:59 Blood Pressure 152/73 H 12/12/24 14:59 Pulse Oximetry 97 12/12/24 14:59 Oxygen Delivery Nasal Cannula 12/12/24 14:59 Oxygen Flow Rate 2 12/12/24 14:59 Temperature 96.8 F L 12/12/24 14:59 Pulse Rate 66 12/12/24 14:59 Respiratory Rate 16 12/12/24 14:59 Blood Pressure 152/73 H 12/12/24 14:59 Pulse Oximetry 97 12/12/24 14:59 Oxygen Delivery Nasal Cannula 12/12/24 14:59 Oxygen Flow Rate 2 12/12/24 14:59 Reviewed MDM - Female Genitourinary MDM Narrative Medical decision making narrative: Discussed physical exam findings and urine dip. Will culture. Pt's bleeding does not appear rectal, however cannot confirm bleeding is vaginal. Pt was minimally tolerant of the speculum stating she has not had a pelvic exam before. The bleeding on exam appeared to be vaginal, though no significant bleeding was noted with manual exam. No apparent bleeding from urethra. Pt follows with Dr Ibarra. Advised establishing with obgyn and f/u as scheduled with pcp next week. Advised supportive measures and signs/symptoms to go to the ER. Pt is appropriate for outpt treatment and f/u. pt is accompanied by sister. Differential Diagnosis Differential diagnosis: Likely urinary tract infection, cervicitis, vaginitis, cystitis and other Lab Data Labs: Lab Results 12/12/24 12/12/24 Range/Units 15:10 15:56 POC Capillary Glucose 142 H (65-105) mg/dl POC Urine Color Yellow POC Urine Clarity Clear POC Urine pH 5.5 POC Ur Specif [place] 1.025 POC Urine Protein 3+ (Negative) POC Ur Glucose (UA) 2+ (Negative) POC Urine Ketones Negative (Negative) POC Urine Blood 2+ (Negative) POC Urine Nitrite Negative (Negative) POC Urine Bilirubin Negative (Negative) POC Urine Urobilinogen 0.2 POC U Leukocyte Esteras Negative (Negative) Discharge Plan Discharge Clinical Impression: Bleeding Patient Disposition: Home, Self-Care Condition: Stable Instructions: Antibiotic Form Additional Instructions: Your urine will be sent of for a culture to determine if bacteria is causing your symptoms. If the culture shows a UTI, you will be notified and an antibiotic will be called in for you. We discussed changing your under garments frequently especially when soiled. Wipe front to back Increase water intake Follow up with your primary care provider as scheduled next week Recommend Follow up with Obgyn Go to the ER for worsening symptoms or concerns Patient Language: Panamanian Prescriptions: No Action terbinafine HCl 250 mg tablet 250 mg PO Q48H Patient Comments: Takes every other day, confirmed with patient's sister 11/29/24 latanoprost 0.005 % drops 1 drp LEFT EYE DAILY indapamide 2.5 mg tablet 2.5 mg PO DAILY Qty: 30 11RF dapagliflozin propanediol [Farxiga] 10 mg tablet 10 mg PO DAILY Qty: 90 1RF metformin 1,000 mg tablet See Rx Instructions .ROUTE .COMPLEX Rx Instructions: Take 1 tablet by mouth twice daily WM acetaminophen 325 mg Tablet 650 mg PO Q6H PRN (Reason: Mild Pain (1-3) Or Fever) Qty: 0 0RF atorvastatin 20 mg Tablet 20 mg PO DAILY Qty: 30 0RF hydralazine 25 mg Tablet 25 mg PO Q8HR 30 Days Qty: 90 0RF melatonin 3 mg Tablet 6 mg PO HS PRN (Reason: Insomnia) Qty: 0 0RF amlodipine 10 mg Tablet 10 mg PO DAILY Qty: 30 0RF metoprolol tartrate 50 mg Tablet 50 mg PO Q12HR 30 Days Qty: 60 0RF cholecalciferol (vitamin D3) [Vitamin D3] 25 mcg (1,000 unit) Tablet 25 mcg PO DAILY Qty: 30 0RF Follow-up/Referrals: Felipe De Jesus MD [Physician] - Toribio Lomeli DO [Primary Care Provider] - Time of Disposition: 16:03
[2024-12-12 14:59] VITALS: BP 152/73; PULSE 66; RESP 16; TEMP 36; O2SAT 97
[2024-12-12 15:16] LABS: EDUAAPPEAR Clear; EDUABILI Negative (Negative); EDUABLOOD 2+ (Negative); EDUACOLOR1 Yellow; EDUAGLUCOSE 2+ (Negative); EDUAKETONE Negative (Negative); EDUALEUKO Negative (Negative); EDUANITRATE Negative (Negative); EDUAPH 5.5; EDUAPROTEIN 3+ (Negative); EDUASPGRAVITY 1.025; EDUAUROBILI 0.2
[2024-12-12 16:04] LABS: Glucose Point of Care 142 mg/dl (65-105)
--- OUTSIDE RECORDS SUMMARY | 2024-12-12 17:27 | XMS_ITS | Encounter Summary ---
Author Organization [facility] Address [facility] [place] [address] Care Team Providers Care Peoplesoft Analyst Name Role Phone Jean Mark MD Primary Care Provider [phone] Toribio Lomeli DO Primary Care Provider [phone] Encounter Details Date Type Department Care Team ([facility] Contact Info) Description 06/29/2020 Abstract [facility] Family & Internal Medicine [facility] [address] [place] [address] [place] [address] [place] [address] Social History Tobacco Use Types Packs/Day Years Used Date Smoking Tobacco: Never Smokeless Tobacco: Never Alcohol Use Standard Drinks/Week Comments No 0 (1 standard drink = 0.6 oz pur e alcohol) AUDIT-C Answer Date Recorded Frequency of Alcohol Consumption Never 10/04/2018 Average Number of Drinks Not on file 018 Frequency of Binge Drinking Not on file 09/25 PHQ-2 Answer Date Recorded PHQ-2 Score - If the patient scores above 3, please move on to questions 3-9 0 05/17/2020 Comments Unknown Sex and Gender Information Value Date Recorded Sex Assigned at Female 11/18/2024 5:10 PM SURFACE WATER TECHNICIAN Legal Sex Female 7:29 PM CDT Gender Identity Female 11/18/2024 5:33 PM SURFACE WATER TECHNICIAN Sexual Orientation Not on file documented as of this encounter Plan of Treatment Upcoming Encounters Date Type Department Care Team (Late st Contact Info) Description 12/23/2024 10:45 AM SURFACE WATER TECHNICIAN Office Visit [facility] [address] [place] [address] Ara Sharp, [facility]. [facility] [address] [place], [place] [id number] 02/20/2025 2:15 PM CDT Allied Health/Nurse Visit [facility] [address] [place], [place] [id number] Ulises Bond MD [facility]. [facility] [address] [place], [place] [id number] documented as of this encounter Visit Diagnoses Not on filedocumented in this encounter Additional Health Concerns Infection Onset Date Last Indicated Resolved Time COVID-19 Rule Out 02/07/2023 02/07/2023 02/07/2023 12:46 PM CDT COVID-19 Rule Out 11/18/2024 11/18/2024 11/18/2024 9:23 AM SURFACE WATER TECHNICIAN documented as of this encounter Care Teams Peoplesoft Analyst Relationship Specialty [place] [address] [place] [address] PCP - General FAMILY PRACTICE 10/04/18 11/17/24 Toribio Lomeli DO [address] [place] [address] PCP - General INTERNAL MEDICINE 11/18/24 documented as of this encounter
--- OUTSIDE RECORDS SUMMARY | 2024-12-12 17:27 | XMS_ITS | Clinical Summary ---
Author Organization [facility] Address [address] [place] [id number] Care Team Providers Care Appliance Line Assembler Name Role Phone Toribio Lomeli DO Primary Care Provider [phone] Allergies Active Allergy Reactions Criticality Noted Date Comments Penicillins Rash Medium 03/25/2017 Medications metFORMIN (GLUCOPHAGE) 1,000 mg tablet Take 1 tablet (1,000 mg total) by mouth 2 (two) times a day Active indapamide (LOZOL) 2.5 mg tablet Take 1 tablet (2.5 mg total) by mouth daily 3 Active atorvastatin (LIPITOR) 20 mg tablet Take 1 tablet (20 mg total) by mouth daily Active terbinafine (LamiSIL) 250 mg tablet Take 1 tablet (250 mg total) by mouth daily Active metoprolol XL (TOPROL-XL) 100 mg 24 hr tablet Take 1 tablet (100 mg total) by mouth daily Active hydrALAZINE (APRESOLINE) 10 mg tablet Take 1 tablet (10 mg total) by mouth 2 (two) times a day 3 Active amLODIPine-lee ann zepriL (LOTREL) 10-20 mg per capsule Take 1 capsule by mouth daily 2 Active latanoprost (XALATAN) 0.005 % ophthalmic solution Administer 1 drop into the left eye nightly 2.5 mL 11 4 Active Additional Information Patient taking differently:1 drop left eyeDaily, Pt using QAM, Reported on 12/30/2023 Active Problems Problem Noted Date Diagnosed Date Primary open-angle glaucoma, left eye, severe st age 0111/11/2023 Overview (11/11/2023): New patient referred from neurop No light perception (NLP) right eye (OD) 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 RTC 2 months with possible SLT OS Optic neuropathy 08/14/2023 Assessment & Plan (08/14/2023 11:39 AM CDT): 68 y/o woman with diabetes, HTN, and unspecified breathing difficulty referred by Joann Barreto OD ([facility]) for blurred vision. History is limited as patient says she doesn't know in response to most questions. Most of the history is provided by the patient's sister. History of retinal detachment OD in the and has not seen out of that eye ever since. Never had any surgery or other intervention. The right eye is now NLP, she does not know when it reached that point. History of CE/IOL OS in the early . S/p YAG cap a few years ago and was seeing well out of the eye again at that point. Last year around August 2023 she started having more difficulty seeing, family noticed she was groping when trying to pick something up. Patient describes vision as being generally cloudy throughout the entire visual field. No fluctuations in vision throughout the day or from day to day. Had a vitamin A level checked in 08/2022 which was normal. Has not had any other workup for vision loss. Exam today NLP OD and with 6/200 pinhole acuity OS. Unable to assess for APD OS due to presence of APD by reverse OD. Unable to read control color plate due to vision loss. No apparent abnormalities of cranial nerves 3-7. Unable to perform fundus exam OD due to anterior findings. 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 On OCT she has polar RNFL thinning as well as diffuse GCL loss and diffuse retinal atrophy. Given our inability to assess the right eye, the differential for her left optic neuropathy is broad and must include causes of both unilateral and bilateral optic neuropathy. Although her IOP was normal today at 17, the differential does include glaucoma, as this would be consistent with her pattern of polar (inferior/superior) thinning on RNFL OCT. Other possibly-reversible causes of optic neuropathy that have not been ruled out include a compressive mass as well as nutritional and infectious causes. Recommendations: - MRI brain/orbits w/wo - RPR/FTA - thiamine, B12, folate, copper If above workup is unrevealing, will consider referral to glaucoma for further assessment of possible normal-pressure glaucoma. Type 2 diabetes mellitus 03/25/2017 Assessment & Plan (11/11/2023 8:56 PM MOBILE HOME LOT UTILITY WORKER): No retinopathy Social History Tobacco Use Types Packs/Day Years Used Date Smoking Tobacco: Never Tobacco Cessation:Counseling Given: Not Answered Comments Unknown Sex and Gender Information Value Date Recorded Sex Assigned at Not on file Legal Sex Female 1:31 PM CDT Gender Identity Not on file Sexual Orientation Not on file Obstetrics History Plan of Treatment Health Maintenance Due Date Last Done Comments Albumin Creatinine Ratio, Urine 1956 Breast Cancer Screening-Mammogram 1956 Colon Cancer Screening-Colonoscopy 1956 Depression Screening 1956 Fall Risk Assessment 1956 Hemoglobin A1C 1956 Hepatitis C Screening 1956 Osteoporosis Screening-Bone Density Scan 1956 eGFR 1956 Foot Exam 1956 Lipid Panel 1956 Hepatitis B Screening 1974 Well Visit 65+ 2021 Covid-19 Vaccine (4 - 2023-2 5 season) 2024 09/09/2021, 12/20/2020, 11/22/2020 Influenza Vaccine (#1) 2024 , 07/29/2022, 07/12/2021, Additional history exists Dilated Eye Exam 11/11/2024 11/11/2023 DTaP/Tdap/Td Vaccine (2 - Td or Tdap) 11/14/2032 11/14/2022 Pneumococcal vaccine 65+ Completed 11/14/2022 Zoster Vaccine Completed 01/15/2023, 11/14/2022 Insurance MEDICARE MEDICARE [facility] MEDICARE [employer] Care Teams Appliance Line Assembler Relationship Specialty Start Date End Date Toribio Lomeli DO PCP - General Internal Medicine 08/14/21
--- OUTSIDE RECORDS SUMMARY | 2024-12-12 17:27 | XMS_ITS | Clinical Summary ---
Author Organization [facility] Address [address] [place] [address] Phone Care Team Providers Care Correctional Counselor Name Role Phone Toribio Lomeli DO Primary Care Provider [phone] Allergies Active Allergy Reactions Criticality Noted Date Comments Penicillins Unknown 03/25/2017 Medications Medication Sig Dispensed Refills Start Date End Date Status albuterol HFA (PROVENTIL HFA) 108 (90 Base) MCG/ACT inhaler Inhale 2 puffs every 6 hours as needed 01/17/2019 Active amLODIPine-benazepril (LOTREL) 10-20 MG per capsule Take 1 capsule by mouth 1 (one) time each day 04/30/2022 Active metFORMIN (GLUCOPHAGE) 1000 MG tablet Take 1,000 mg by mouth 2 times daily 10/04/2020 Active terbinafine (LamISIL) 250 MG tablet Take 250 mg by mouth 1 (one) time each day 06/16/2022 Active atorvastatin (LIPITOR) 20 MG tablet Take 20 mg by mouth 1 (one) time each day Active Cholecalciferol (Vitamin D3) 25 MCG (1000 UT) capsule Take 2,000 Units by mouth Active metoprolol succinate XL (TOPROL-XL) 50 MG 24 hr tablet Take 1 tablet (50 mg total) by mouth 1 (one) time each day 30 tablet 5 08/13/2022 Active Active Problems Problem Noted Date Diagnosed Date Chronic kidney disease stage 3A 07/28/2022 Hypercalcemia 07/28/2022 Benign essential hypertension 03/25/2017 Type 2 diabetes mellitus 03/25/2017 Immunizations Name Administration Dates Next Due Influenza (IM) Preservative Free 08/11/2020 Influenza, Injectable, Quadrivalent, Preservativ e Free 07/25/2019 Family History Medical History Relation Comments Kidney disease Neg Hx Social History Tobacco Use Types Packs/Day Years Used Date Smoking Tobacco: Never Smokeless Tobacco: Never Alcohol Use Standard Drinks/Week Comments Yes 0 (1 standard drink = 0.6 oz pur e alcohol) occasionally half a drink Sex and Gender Information Value Date Recorded Sex Assigned at Not on file Gender Identity Not on file Sexual Orientation Not on file Last Filed Vital Signs Vital Sign Reading Time Taken Comments Blood Pressure 136/88 07/28/2022 9:46 AM CDT Pulse 84 07/28/2022 9:46 AM CDT Temperature 36.9 C (98.4 F) 07/28/2022 9:46 AM CDT Respiratory Rate - - Oxygen Saturation - - Inhaled Oxygen Concentration - - Weight 99.8 kg (220 lb) 07/28/2022 9:46 AM CDT Height 167.6 cm (5' 6 ) 07/28/2022 9:46 AM CDT Body Mass Index 35.51 07/28/2022 9:46 AM CDT Plan of Treatment Health Maintenance Due Date Last Done Comments Pneumococcal PPSV23/PCV13 65 + Years / Low and Medium Risk (1 of 4 - PCV) 2021 Influenza Vaccine (#1) 2024 08/11/2020, 2018 Care Teams Correctional Counselor Relationship Specialty Start Date End Date Toribio Lomeli DO [address] [place] [address] PCP - General Internal Medicine 06/19/22
--- OUTSIDE RECORDS SUMMARY | 2024-12-12 17:27 | XMS_ITS | Clinical Summary ---
Author Organization Unknown Care Team Providers Care Motion Study Analyst Name Role Phone TEMI SKINNER DO Unavailable Unavailable CAIO SILVA, MIKEY Unavailable Unavailable Payers Payer Name Policy Type Policy Number Effective Date Expira tion Date MEDICARE.[facility] [id number] Problems Condition Name Condition Details Condition Category Status Onset Date Resolution Date Last Treatment Date Treating Clinician Comments UNSPECIFIED RIGHT BUNDLE-BRANC H BLOCK Active 11-30 00:00: 00 METABOLIC ENCEPHALOPAT HY Active 11-30 00:00: 00 Allergies, Adverse Reactions, Alerts Allergy Name Allergy Type Status Severity Reaction(s) Onset Date Inactive Date Treating Clinician Comments PENICILLINS Propensity to adverse reactions Active 12-08 13:45: 41 Vital Signs Vital Name Observation Time Observation Value Commen ts Temperature 2024-12-09 12:33:00.000 97.7 [degF] Temperature 2024-12-09 09:28:00.000 97.2 [degF] Temperature 2024-12-08 20:32:00.000 98.2 [degF] BMI (%) 2024-12-08 14:06:22.000 33 kg/m2 Height 2024-12-08 14:06:13.000 66 [in_us] Pulse 2024-12-09 12:33:00.000 62 /min Pulse 2024-12-09 09:28:00.000 62 /min Pulse 2024-12-08 20:32:00.000 74 /min O2 Saturation (%) 2024-12-09 12:33:00.000 98 % O2 Saturation (%) 2024-12-09 09:28:00.000 97 % O2 Saturation (%) 2024-12-08 20:32:00.000 97 % Respirations 2024-12-09 12:33:00.000 18 /min Respirations 2024-12-09 09:28:00.000 18 /min Respirations 2024-12-08 20:32:00.000 20 /min Weight (lbs) 2024-12-08 14:06:22.000 205 [lb_av] Systolic Blood Pressure 2024-12-09 12:33:00.000 143 mm [Hg] Systolic Blood Pressure 2024-12-09 09:28:00.000 138 mm [Hg] Systolic Blood Pressure 2024-12-08 20:32:00.000 144 mm [Hg] Diastolic Blood Pressure 2024-12-09 12:33:00.000 64 mm [Hg] Diastolic Blood Pressure 2024-12-09 09:28:00.000 62 mm [Hg] Diastolic Blood Pressure 2024-12-08 20:32:00.000 74 mm [Hg] Plan of Treatment Planned Activity Planned Date Details Comments Future Scheduled Test RN TO OBSE RVE, ASSESS, EVALUATE, AND DEVELOP AN INDIVIDUALIZED PLAN OF CARE. AGENCY MAY ACCEPT ORDERS FROM CONSULTING PHYSICIANS 1 RN TO OBSERVE AND ASSESS, CARAMEL CANDY MAKER HELPER/MANAGER DELI TO OBSERVE FOR RISK FOR FALLS AND INSTRUCT IN FALL PREVENTION, HOME SAFETY, MEDICATION MANAGEMENT, INFECTION PREVENTION, AND NUTRITION MANAGEMENT. RN/CARAMEL CANDY MAKER HELPER/MANAGER DELI NURSE MAY PERFORM O2 SATURATION LEVEL ON ADMISSION AND PRN FOR 1 FOR RN TO ASSESS/CARAMEL CANDY MAKER HELPER TO OBSERVE PATIENT, WITH NOTIFICATION TO THE PHYSICIAN IF SATURATION IS 90% IN THE ABSENCE OF MORE SPECIFIC PARAMETERS FROM THE PHYSICIAN. AGENCY MAY PERFORM A RESUMPTION OF CARE VISIT FOLLOWING ANY HOSPITAL ADMISSION. RN/CARAMEL CANDY MAKER HELPER/MANAGER DELI TO MONITOR CO-MORBID CONDITIONS LISTED ON THE PLAN OF CARE AND ANY NEW CONDITIONS THAT PRESENT THEMSELVES DURING THIS EPISODE TO IDENTIFY CHANGES AND INTERVENE TO MINIMIZE COMPLICATIONS. [code = RN TO OBSERVE, ASSESS, EVALUATE, AND DEVELOP AN INDIVIDUALIZED PLAN OF CARE. AGENCY MAY ACCEPT ORDERS FROM CONSULTING PHYSICIANS 1 RN TO OBSERVE AND ASSESS, CARAMEL CANDY MAKER HELPER/MANAGER DELI TO OBSERVE FOR RISK FOR FALLS AND INSTRUCT IN FALL PREVENTION, HOME SAFETY, MEDICATION MANAGEMENT, INFECTION PREVENTION, AND NUTRITION MANAGEMENT. RN/CARAMEL CANDY MAKER HELPER/MANAGER DELI NURSE MAY PERFORM O2 SATURATION LEVEL ON ADMISSION AND PRN FOR 1 FOR RN TO ASSESS/CARAMEL CANDY MAKER HELPER TO OBSERVE PATIENT, WITH NOTIFICATION TO THE PHYSICIAN IF SATURATION IS 90% IN THE ABSENCE OF MORE SPECIFIC PARAMETERS FROM THE PHYSICIAN. AGENCY MAY PERFORM A RESUMPTION OF CARE VISIT FOLLOWING ANY HOSPITAL ADMISSION. RN/CARAMEL CANDY MAKER HELPER/MANAGER DELI TO MONITOR CO-MORBID CONDITIONS LISTED ON THE PLAN OF CARE AND ANY NEW CONDITIONS THAT PRESENT THEMSELVES DURING THIS EPISODE TO IDENTIFY CHANGES AND INTERVENE TO MINIMIZE COMPLICATIONS.] Future Scheduled Test MEDICATION MANAGEMENT; RN/CARAMEL CANDY MAKER HELPER/MANAGER DELI TO REVIEW MEDICATIONS FOR INTERACTIONS, EFFECTIVENESS OF DRUG THERAPY, AND SIGNS/SYMPTOMS OF ADVERSE REACTIONS. MAY INSTRUCT AND REINFORCE MEDICATION TEACHING RELATED TO THE USE OF MEDICATIONS, DOSAGE, FREQUENCY, PURPOSE, SIDE EFFECTS, AND TO REPORT COMPLICATIONS. [code = MEDICATION MANAGEMENT; RN/CARAMEL CANDY MAKER HELPER/MANAGER DELI TO REVIEW MEDICATIONS FOR INTERACTIONS, EFFECTIVENESS OF DRUG THERAPY, AND SIGNS/SYMPTOMS OF ADVERSE REACTIONS. MAY INSTRUCT AND REINFORCE MEDICATION TEACHING RELATED TO THE USE OF MEDICATIONS, DOSAGE, FREQUENCY, PURPOSE, SIDE EFFECTS, AND TO REPORT COMPLICATIONS.] Future Scheduled Test RISK FOR H OSPITALIZATION; RN TO ASSESS/TEACH, MANAGER DELI/CARAMEL CANDY MAKER HELPER TO OBSERVE/TEACH PATIENT/CAREGIVER ON RISK FOR HOSPITALIZATION/EMERGENCY ROOM VISITS, TEACH SIGNS AND SYMPTOMS THAT PUT PATIENT AT RISK, WHEN TO NOTIFY NURSE/PHYSICIAN OF COMPLICATIONS/DECLINE, AND WHEN TO CALL 911. [code = RISK FOR HOSPITALIZATION; RN TO ASSESS/TEACH, MANAGER DELI/CARAMEL CANDY MAKER HELPER TO OBSERVE/TEACH PATIENT/CAREGIVER ON RISK FOR HOSPITALIZATION/EMERGENCY ROOM VISITS, TEACH SIGNS AND SYMPTOMS THAT PUT PATIENT AT RISK, WHEN TO NOTIFY NURSE/PHYSICIAN OF COMPLICATIONS/DECLINE, AND WHEN TO CALL 911.] Future Scheduled Test CARDIOVASC ULAR SYSTEM; RN TO ASSESS/TEACH, CARAMEL CANDY MAKER HELPER/MANAGER DELI TO OBSERVE/TEACH RELATED TO ALTERED CARDIOVASCULAR STATUS TO MINIMIZE COMPLICATIONS AND REDUCE HOSPITALIZATION. [code = CARDIOVASCULAR SYSTEM; RN TO ASSESS/TEACH, CARAMEL CANDY MAKER HELPER/MANAGER DELI TO OBSERVE/TEACH RELATED TO ALTERED CARDIOVASCULAR STATUS TO MINIMIZE COMPLICATIONS AND REDUCE HOSPITALIZATION.] Future Scheduled Test HYPERTENSI ON MANAGEMENT; RN TO ASSESS AND TEACH, CARAMEL CANDY MAKER HELPER/MANAGER DELI TO OBSERVE AND TEACH WARNING SIGNS AND SYMPTOMS TO AVOID HOSPITALIZATION. [code = HYPERTENSION MANAGEMENT; RN TO ASSESS AND TEACH, CARAMEL CANDY MAKER HELPER/MANAGER DELI TO OBSERVE AND TEACH WARNING SIGNS AND SYMPTOMS TO AVOID HOSPITALIZATION.] Future Scheduled Test PACEMAKER MANAGEMENT; RN/CARAMEL CANDY MAKER HELPER/MANAGER DELI TO PROVIDE SKILLED TEACHING AND ASSIST WITH MANAGEMENT OF PACEMAKER. [code = PACEMAKER MANAGEMENT; RN/CARAMEL CANDY MAKER HELPER/MANAGER DELI TO PROVIDE SKILLED TEACHING AND ASSIST WITH MANAGEMENT OF PACEMAKER.] Future Scheduled Test RESPIRATOR Y SYSTEM MANAGEMENT; RN TO ASSESS AND TEACH, CARAMEL CANDY MAKER HELPER/MANAGER DELI TO OBSERVE AND TEACH RELATED TO ALTERED RESPIRATORY STATUS TO MINIMIZE COMPLICATIONS AND REDUCE HOSPITALIZATION. [code = RESPIRATORY SYSTEM MANAGEMENT; RN TO ASSESS AND TEACH, CARAMEL CANDY MAKER HELPER/MANAGER DELI TO OBSERVE AND TEACH RELATED TO ALTERED RESPIRATORY STATUS TO MINIMIZE COMPLICATIONS AND REDUCE HOSPITALIZATION.] Future Scheduled Test OXYGEN THE RAPY; RN/CARAMEL CANDY MAKER HELPER/MANAGER DELI TO INSTRUCT ON OXYGEN MANAGEMENT INCLUDING: ADMINISTRATION AT 2 L/MIN VIA NASAL CANNULA CONTINUOUS/PRN FOR DAY TIME HOURS SISTER TAKES OF CARE OF EQUIPMENT AND SAFETY. [code = OXYGEN THERAPY; RN/CARAMEL CANDY MAKER HELPER/MANAGER DELI TO INSTRUCT ON OXYGEN MANAGEMENT INCLUDING: ADMINISTRATION AT 2 L/MIN VIA NASAL CANNULA CONTINUOUS/PRN FOR DAY TIME HOURS SISTER TAKES OF CARE OF EQUIPMENT AND SAFETY.] Future Scheduled Test PAIN MANAG EMENT; RN TO ASSESS AND TEACH, MANAGER DELI/CARAMEL CANDY MAKER HELPER TO OBSERVE AND TEACH AND PROVIDE EDUCATION ON PAIN MANAGEMENT TECHNIQUES. [code = PAIN MANAGEMENT; RN TO ASSESS AND TEACH, MANAGER DELI/CARAMEL CANDY MAKER HELPER TO OBSERVE AND TEACH AND PROVIDE EDUCATION ON PAIN MANAGEMENT TECHNIQUES.] Future Scheduled Test DIABETES M ANAGEMENT; RN TO ASSESS AND TEACH, MANAGER DELI/CARAMEL CANDY MAKER HELPER TO OBSERVE AND TEACH INSTRUCTIONS OF DIABETIC CARE TO INCLUDE: DIET ADA SKIN CARE, SIGNS AND SYMPTOMS OF HYPO/HYPERGLYCEMIA, PROPER ADMINISTRATION OF DIABETIC MEDICATION. RN/MANAGER DELI/CARAMEL CANDY MAKER HELPER TO INSTRUCT ON DIABETIC FOOT CARE AND MONITOR FOR SKIN LESIONS ON LOWER EXTREMITIES. BLOOD GLUCOSE TESTING NOT CHECKED FREQ. RN TO ASSESS AND TEACH, MANAGER DELI/CARAMEL CANDY MAKER HELPER TO OBSERVE AND TEACH PATIENT/CAREGIVER ABILITY TO PERFORM AND RECORD BLOOD GLUCOSE TESTING ORDERED AND TO REPORT ABNORMAL FINDINGS TO PHYSICIAN. RN/MANAGER DELI/CARAMEL CANDY MAKER HELPER MAY PERFORM BLOOD GLUCOSE TEST NEEDED. RN/MANAGER DELI/CARAMEL CANDY MAKER HELPER TO REPORT TO PHYSICIAN BLOOD GLUCOSE READINGS GREATER THAN 300 OR LESS THAN 70RN/MANAGER DELI/CARAMEL CANDY MAKER HELPER TO INSTRUCT PATIENT ON IMPORTANCE OF HGBA1C MONITORING, KIDNEY FUNCTION TEST, EYE AND FOOT EXAMS. [code = DIABETES MANAGEMENT; RN TO ASSESS AND TEACH, MANAGER DELI/CARAMEL CANDY MAKER HELPER TO OBSERVE AND TEACH INSTRUCTIONS OF DIABETIC CARE TO INCLUDE: DIET ADA SKIN CARE, SIGNS AND SYMPTOMS OF HYPO/HYPERGLYCEMIA, PROPER ADMINISTRATION OF DIABETIC MEDICATION. RN/MANAGER DELI/CARAMEL CANDY MAKER HELPER TO INSTRUCT ON DIABETIC FOOT CARE AND MONITOR FOR SKIN LESIONS ON LOWER EXTREMITIES. BLOOD GLUCOSE TESTING NOT CHECKED FREQ. RN TO ASSESS AND TEACH, MANAGER DELI/CARAMEL CANDY MAKER HELPER TO OBSERVE AND TEACH PATIENT/CAREGIVER ABILITY TO PERFORM AND RECORD BLOOD GLUCOSE TESTING ORDERED AND TO REPORT ABNORMAL FINDINGS TO PHYSICIAN. RN/MANAGER DELI/CARAMEL CANDY MAKER HELPER MAY PERFORM BLOOD GLUCOSE TEST NEEDED. RN/MANAGER DELI/CARAMEL CANDY MAKER HELPER TO REPORT TO PHYSICIAN BLOOD GLUCOSE READINGS GREATER THAN 300 OR LESS THAN 70RN/MANAGER DELI/CARAMEL CANDY MAKER HELPER TO INSTRUCT PATIENT ON IMPORTANCE OF HGBA1C MONITORING, KIDNEY FUNCTION TEST, EYE AND FOOT EXAMS.] Future Scheduled Test GENITOURIN CHERELLE MANAGEMENT; RN TO ASSESS AND TEACH, CARAMEL CANDY MAKER HELPER/MANAGER DELI TO OBSERVE AND TEACH RELATED TO ALTERED GENITOURINARY STATUS TO MINIMIZE COMPLICATIONS AND REDUCE HOSPITALIZATION. [code = GENITOURINARY MANAGEMENT; RN TO ASSESS AND TEACH, CARAMEL CANDY MAKER HELPER/MANAGER DELI TO OBSERVE AND TEACH RELATED TO ALTERED GENITOURINARY STATUS TO MINIMIZE COMPLICATIONS AND REDUCE HOSPITALIZATION.] Future Scheduled Test URINARY IN CONTINENCE MANAGEMENT; RN TO ASSESS AND TEACH, CARAMEL CANDY MAKER HELPER/LVNTO OBSERVE AND TEACH MANAGEMENT OF URINARY INCONTINENCE. TEACH/INSTRUCT ON PREVENTING INFECTION AND SKIN BREAKDOWN. RN/CARAMEL CANDY MAKER HELPER/MANAGER DELI MAY INSTRUCT IN BLADDER TRAINING PROGRAM INDICATED. [code = URINARY INCONTINENCE MANAGEMENT; RN TO ASSESS AND TEACH, CARAMEL CANDY MAKER HELPER/LVNTO OBSERVE AND TEACH MANAGEMENT OF URINARY INCONTINENCE. TEACH/INSTRUCT ON PREVENTING INFECTION AND SKIN BREAKDOWN. RN/CARAMEL CANDY MAKER HELPER/MANAGER DELI MAY INSTRUCT IN BLADDER TRAINING PROGRAM INDICATED.] Future Scheduled Test URINARY MO LECULAR TESTING PROTOCOL UP TO 2 PRN RN/CARAMEL CANDY MAKER HELPER/MANAGER DELI VISITS MAY BE PERFORMED FOR S/S OF UTI. RN TO ASSESS, CARAMEL CANDY MAKER HELPER/MANAGER DELI TO OBSERVE INITIATION OF UTI PROTOCOL. RN/MANAGER DELI/CARAMEL CANDY MAKER HELPER TO INSTRUCT PATIENT AND/OR CAREGIVER ON S/S OF UTI TO REPORT TO RN/MANAGER DELI/CARAMEL CANDY MAKER HELPER IF NEW OR WORSENING SYMPTOMS. DRINK PLENTY OF WATER THROUGHOUT THE DAY TO MAINTAIN HYDRATION (UNLESS CONTRAINDICATED.) URINATE WHEN THE URGE IS FELT, DO NOT WAIT. WASH GENITALS DAILY. WIPE FROM FRONT TO BACK AFTER HAVING A BOWEL MOVEMENT. RN/MANAGER DELI/CARAMEL CANDY MAKER HELPER TO OBTAIN MOLECULAR URINE TESTING BY OPTION 1 OR OPTION 2 (OPTION 1) RN/MANAGER DELI/CARAMEL CANDY MAKER HELPER TO OBTAIN U/A WITH REFLEX TO UTI PANEL (MOLECULAR) VIA CLEAN CATCH URINE AND IF UNABLE TO OBTAIN MAY PERFORM AN IN AND OUT CATH. IF PATIENT HAS INDWELLING CATHETER MAY OBTAIN FROM SAMPLING PORT. (OPTION 2) RN/MANAGER DELI/CARAMEL CANDY MAKER HELPER TO OBTAIN UTI PANEL (MOLECULAR) VIA SWAB COLLECTION METHOD FROM ADULT BRIEF/DIAPER OR PAD IF PATIENT IS INCONTINENT. NOTIFY PROVIDER OF RESULTS AND OBTAIN FURTHER ORDERS. [code = URINARY MOLECULAR TESTING PROTOCOL UP TO 2 PRN RN/CARAMEL CANDY MAKER HELPER/MANAGER DELI VISITS MAY BE PERFORMED FOR S/S OF UTI. RN TO ASSESS, CARAMEL CANDY MAKER HELPER/MANAGER DELI TO OBSERVE INITIATION OF UTI PROTOCOL. RN/MANAGER DELI/CARAMEL CANDY MAKER HELPER TO INSTRUCT PATIENT AND/OR CAREGIVER ON S/S OF UTI TO REPORT TO RN/MANAGER DELI/CARAMEL CANDY MAKER HELPER IF NEW OR WORSENING SYMPTOMS. DRINK PLENTY OF WATER THROUGHOUT THE DAY TO MAINTAIN HYDRATION (UNLESS CONTRAINDICATED.) URINATE WHEN THE URGE IS FELT, DO NOT WAIT. WASH GENITALS DAILY. WIPE FROM FRONT TO BACK AFTER HAVING A BOWEL MOVEMENT. RN/MANAGER DELI/CARAMEL CANDY MAKER HELPER TO OBTAIN MOLECULAR URINE TESTING BY OPTION 1 OR OPTION 2 (OPTION 1) RN/MANAGER DELI/CARAMEL CANDY MAKER HELPER TO OBTAIN U/A WITH REFLEX TO UTI PANEL (MOLECULAR) VIA CLEAN CATCH URINE AND IF UNABLE TO OBTAIN MAY PERFORM AN IN AND OUT CATH. IF PATIENT HAS INDWELLING CATHETER MAY OBTAIN FROM SAMPLING PORT. (OPTION 2) RN/MANAGER DELI/CARAMEL CANDY MAKER HELPER TO OBTAIN UTI PANEL (MOLECULAR) VIA SWAB COLLECTION METHOD FROM ADULT BRIEF/DIAPER OR PAD IF PATIENT IS INCONTINENT. NOTIFY PROVIDER OF RESULTS AND OBTAIN FURTHER ORDERS.] Future Scheduled Test FALL REDUC TION MANAGEMENT; RN TO ASSESS AND OBSERVE, CARAMEL CANDY MAKER HELPER/MANAGER DELI TO OBSERVE FALL RISK FACTORS AND EDUCATE PATIENT/CAREGIVER ON STRATEGIES TO MINIMIZE THE RISK OF FALLING. [code = FALL REDUCTION MANAGEMENT; RN TO ASSESS AND OBSERVE, CARAMEL CANDY MAKER HELPER/MANAGER DELI TO OBSERVE FALL RISK FACTORS AND EDUCATE PATIENT/CAREGIVER ON STRATEGIES TO MINIMIZE THE RISK OF FALLING.] Future Scheduled Test PHYSICAL T HERAPIST TO EVALUATE FOR EVALUATION AND TREATMENT [code = PHYSICAL THERAPIST TO EVALUATE FOR EVALUATION AND TREATMENT ] Future Scheduled Test OCCUPATION AL THERAPIST TO EVALUATE FOR EVALUATION AND TREATMENT [code = OCCUPATIONAL THERAPIST TO EVALUATE FOR EVALUATION AND TREATMENT ] Future Scheduled Test PRN VISITS ;2 NUMBER OF RN/CARAMEL CANDY MAKER HELPER/MANAGER DELI VISITS: 2 RN/CARAMEL CANDY MAKER HELPER/MANAGER DELI TO PERFORM: 2 FOR THE FOLLOWING REASONS: CARDIAC COMPLICATIONS [code = PRN VISITS;2 NUMBER OF RN/CARAMEL CANDY MAKER HELPER/MANAGER DELI VISITS: 2 RN/CARAMEL CANDY MAKER HELPER/MANAGER DELI TO PERFORM: 2 FOR THE FOLLOWING REASONS: CARDIAC COMPLICATIONS ] Future Scheduled Test ANEMIA MAN AGEMENT; RN TO ASSESS AND TEACH, MANAGER DELI/CARAMEL CANDY MAKER HELPER TO OBSERVE AND TEACH AND PROVIDE EDUCATION ON ANEMIA. [code = ANEMIA MANAGEMENT; RN TO ASSESS AND TEACH, MANAGER DELI/CARAMEL CANDY MAKER HELPER TO OBSERVE AND TEACH AND PROVIDE EDUCATION ON ANEMIA.] Future Scheduled Test AGENCY MAY PERFORM A RESUMPTION OF CARE VISIT FOLLOWING ANY HOSPITAL ADMISSION. OT TO EVALUATE, OBSERVE / ASSESS, AND MONITOR, STATE APPELLATE CLERK TO OBSERVE AND MONITOR, PROVIDE SKILLED THERAPEUTIC INTERVENTION, ACTIVITY, EDUCATION, AND TRAINING TO ADDRESS SAFETY AND INDEPENDENCE OF ADLS AND FUNCTIONAL TRANSFERS IN HOME ENVIRONMENT. ACTIVITIES OF DAILY LIVING (OT/STATE APPELLATE CLERK) BATH/SHOWER TRANSFER (OT/STATE APPELLATE CLERK) ITEM RETRIEVAL AND TRANSPORTATION (OT/STATE APPELLATE CLERK) VISUAL DYSFUNCTION (OT/STATE APPELLATE CLERK) POSTURAL CONTROL/BALANCE (OT/LAMAR) THERAPEUTIC EXERCISE (OT/STATE APPELLATE CLERK) OT / STATE APPELLATE CLERK TO EDUCATE ON PACEMAKER SELF-MANAGEMENT OT/STATE APPELLATE CLERK TO MONITOR AND EDUCATE ON OXYGEN SATURATION DURING ADLS/IADLS, NOTIFY PHYSICIAN AND/OR THE RN CLINICAL WIRE DRAWING SETTER FOR PHYSICIAN NOTIFICATION AND IF O2 SATS BELOW 90% AFTER 10 MIN OF REST. OT / LAMAR TO IDENTIFY FALL RISK FACTORS; EDUCATE THE PATIENT/CAREGIVER ON WAYS TO REDUCE FALL RISK FACTORS AND ESTABLISH HOME EXERCISE PROGRAM TO MINIMIZE FALL RISK. MAY TEACH THE PATIENT FLOOR RECOVERY WHEN CLINICALLY APPROPRIATE. OT/LAMAR TO EDUCATE ON HYPERTENSION SELF-MANAGEMENT [code = AGENCY MAY PERFORM A RESUMPTION OF CARE VISIT FOLLOWING ANY HOSPITAL ADMISSION. OT TO EVALUATE, OBSERVE / ASSESS, AND MONITOR, LAMAR TO OBSERVE AND MONITOR, PROVIDE SKILLED THERAPEUTIC INTERVENTION, ACTIVITY, EDUCATION, AND TRAINING TO ADDRESS SAFETY AND INDEPENDENCE OF ADLS AND FUNCTIONAL TRANSFERS IN HOME ENVIRONMENT. ACTIVITIES OF DAILY LIVING (OT/LAMAR) BATH/SHOWER TRANSFER (OT/STATE APPELLATE CLERK) ITEM RETRIEVAL AND TRANSPORTATION (OT/STATE APPELLATE CLERK) VISUAL DYSFUNCTION (OT/STATE APPELLATE CLERK) POSTURAL CONTROL/BALANCE (OT/LAMAR) THERAPEUTIC EXERCISE (OT/STATE APPELLATE CLERK) OT / LAMAR TO EDUCATE ON PACEMAKER SELF-MANAGEMENT OT/LAMAR TO MONITOR AND EDUCATE ON OXYGEN SATURATION DURING ADLS/IADLS, NOTIFY PHYSICIAN AND/OR THE RN CLINICAL WIRE DRAWING SETTER FOR PHYSICIAN NOTIFICATION AND IF O2 SATS BELOW 90% AFTER 10 MIN OF REST. OT / LAMAR TO IDENTIFY FALL RISK FACTORS; EDUCATE THE PATIENT/CAREGIVER ON WAYS TO REDUCE FALL RISK FACTORS AND ESTABLISH HOME EXERCISE PROGRAM TO MINIMIZE FALL RISK. MAY TEACH THE PATIENT FLOOR RECOVERY WHEN CLINICALLY APPROPRIATE. OT/STATE APPELLATE CLERK TO EDUCATE ON HYPERTENSION SELF-MANAGEMENT] Future Scheduled Test AGENCY MAY PERFORM A RESUMPTION OF CARE VISIT FOLLOWING ANY HOSPITAL ADMISSION. PT TO EVALUATE, OBSERVE / ASSESS, AND MONITOR, LINE CONTROLLER TO OBSERVE AND MONITOR, PROVIDE SKILLED THERAPEUTIC INTERVENTION, ACTIVITY, EDUCATION, AND TRAINING TO ADDRESS; PT/LINE CONTROLLER TO PROVIDE GAIT TRAINING FOR IMPROVED MOBILITY AND /OR TO NORMALIZE GAIT PATTERN NEUROMUSCULAR RE-EDUCATION / BALANCE / POSTURAL CONTROL (PT) SIT TO/FROM STAND TRANSFERS (PT/LINE CONTROLLER) PT / LINE CONTROLLER TO MONITOR AND EDUCATE ON OXYGEN SATURATION DURING ADLS/IADLS, NOTIFY PHYSICIAN AND/OR THE RN CLINICAL WIRE DRAWING SETTER FOR PHYSICIAN NOTIFICATION AND IF O2 SATS BELOW PHYSICIAN ORDERED PARAMETERS AFTER 10 MIN OF REST PT / LINE CONTROLLER TO EDUCATE PATIENT / CAREGIVER ON OXYGEN MANAGEMENT; OXYGEN FLOW RATE 2L/MIN PER NASAL CANULA CONTINUOIYS PT / LINE CONTROLLER TO MONITOR FOR HYPO/HYPERGLYCEMIA AND CONDUCT ROUTINE FOOT INSPECTIONS. RECORD PATIENT REPORTED BLOOD SUGAR LEVELS AND NOTIFY PHYSICIAN AND/OR THE RN CLINICAL WIRE DRAWING SETTER FOR PHYSICIAN NOTIFICATION IF BLOOD SUGAR LEVELS ARE OUTSIDE ORDERED PARAMETERS. TEACH PATIENT/CAREGIVER ON DAILY FOOT INSPECTIONS PT/LINE CONTROLLER TO IDENTIFY FALL RISK FACTORS; EDUCATE THE PATIENT/CAREGIVER ON WAYS TO REDUCE FALL RISK FACTORS AND ESTABLISH HOME EXERCISE PROGRAM TO MINIMIZE FALL RISK. MAY TEACH THE PATIENT FLOOR RECOVERY WHEN CLINICALLY APPROPRIATE PT / LINE CONTROLLER TO EDUCATE ON DIABETES SELF- MANAGEMENT [code = AGENCY MAY PERFORM A RESUMPTION OF CARE VISIT FOLLOWING ANY HOSPITAL ADMISSION. PT TO EVALUATE, OBSERVE / ASSESS, AND MONITOR, LINE CONTROLLER TO OBSERVE AND MONITOR, PROVIDE SKILLED THERAPEUTIC INTERVENTION, ACTIVITY, EDUCATION, AND TRAINING TO ADDRESS; PT/LINE CONTROLLER TO PROVIDE GAIT TRAINING FOR IMPROVED MOBILITY AND /OR TO NORMALIZE GAIT PATTERN NEUROMUSCULAR RE-EDUCATION / BALANCE / POSTURAL CONTROL (PT) SIT TO/FROM STAND TRANSFERS (PT/LINE CONTROLLER) PT / LINE CONTROLLER TO MONITOR AND EDUCATE ON OXYGEN SATURATION DURING ADLS/IADLS, NOTIFY PHYSICIAN AND/OR THE RN CLINICAL WIRE DRAWING SETTER FOR PHYSICIAN NOTIFICATION AND IF O2 SATS BELOW PHYSICIAN ORDERED PARAMETERS AFTER 10 MIN OF REST PT / LINE CONTROLLER TO EDUCATE PATIENT / CAREGIVER ON OXYGEN MANAGEMENT; OXYGEN FLOW RATE 2L/MIN PER NASAL CANULA CONTINUOIYS PT / LINE CONTROLLER TO MONITOR FOR HYPO/HYPERGLYCEMIA AND CONDUCT ROUTINE FOOT INSPECTIONS. RECORD PATIENT REPORTED BLOOD SUGAR LEVELS AND NOTIFY PHYSICIAN AND/OR THE RN CLINICAL WIRE DRAWING SETTER FOR PHYSICIAN NOTIFICATION IF BLOOD SUGAR LEVELS ARE OUTSIDE ORDERED PARAMETERS. TEACH PATIENT/CAREGIVER ON DAILY FOOT INSPECTIONS PT/LINE CONTROLLER TO IDENTIFY FALL RISK FACTORS; EDUCATE THE PATIENT/CAREGIVER ON WAYS TO REDUCE FALL RISK FACTORS AND ESTABLISH HOME EXERCISE PROGRAM TO MINIMIZE FALL RISK. MAY TEACH THE PATIENT FLOOR RECOVERY WHEN CLINICALLY APPROPRIATE PT / LINE CONTROLLER TO EDUCATE ON DIABETES SELF- MANAGEMENT] Goal Patient Goal - TO GET BETTER Goal Provider Goal - A PLAN OF CARE WILL BE ESTABLISHED THAT MEETS THE PATIENTS NEEDS. PATIENT WILL DEMONSTRATE OXYGEN SATURATION WITHIN NORMAL LIMITS OR PATIENTS OPTIMAL LEVEL ESTABLISHED BY THE PHYSICIAN THROUGHOUT CARE. CHANGES TO CO-MORBID CONDITIONS AND ANY NEW CONDITIONS WILL BE IDENTIFIED AND REPORTED TO THE PHYSICIAN. Goal Provider Goal - PATIENT/CAREGIVER TO VERBALIZE, AND CONSISTENTLY DEMONSTRATE EFFECTIVE, SAFE MANAGEMENT OF MEDICATION INCLUDING KNOWLEDGE OF EFFECTIVENESS, POTENTIAL SIDE EFFECTS AND DRUG REACTIONS AND WHEN TO CONTACT THE APPROPRIATE CARE PROVIDER. PATIENT/CAREGIVER WILL BE ABLE TO VERBALIZE UNDERSTANDING OF MEDICATION REGIMEN AND ACCURATELY TAKE MEDICATIONS PRESCRIBED WITHOUT ADVERSE EFFECTS BY EOE Goal Provider Goal - PATIENT/CAREGIVER WILL VERBALIZE UNDERSTANDING OF SIGNS AND SYMPTOMS THAT PUT THE PATIENT AT RISK FOR HOSPITALIZATION /EMERGENCY ROOM VISITS, WHEN TO NOTIFY NURSE/PHYSICIAN OF COMPLICATIONS/DECLINE AND WHEN TO CALL 911. Goal Provider Goal - PATIENT / CAREGIVER WILL VERBALIZE/DEMONSTRATE UNDERSTANDING OF MEASURES TO MANAGE ALTERED CARDIOVASCULAR STATUS BY EOE Goal Provider Goal - PATIENT / CAREGIVER WILL VERBALIZE/DEMONSTRATE AN ABILITY TO ADHERE TO SELF-MANAGEMENT OF HTN TO MINIMIZE COMPLICATIONS AND AVOID HOSPITALIZATION BY END OF EPISODE. Goal Provider Goal - PATIENT / CAREGIVER WILL VERBALIZE/DEMONSTRATE UNDERSTANDING OF CARE AND MANAGEMENT OF PACEMAKER BY END OF EPISODE. Goal Provider Goal - PATIENT / CAREGIVER WILL VERBALIZE/DEMONSTRATE UNDERSTANDING OF MEASURES TO MANAGE ALTERED RESPIRATORY STATUS BY END OF EPISODE. Goal Provider Goal - PATIENT/CAREGIVER WILL VERBALIZE/DEMONSTRATE UNDERSTANDING OF CARE AND MANAGEMENT OF OXYGEN THERAPY BY END OF EPISODE Goal Provider Goal - PATIENT / CAREGIVER WILL VERBALIZE / DEMONSTRATE UNDERSTANDING OF PAIN CONTROL MEASURES BY EOE Goal Provider Goal - PATIENT / CAREGIVER WILL VERBALIZE / DEMONSTRATE AN ABILITY TO ADHERE TO SELF-MANAGEMENT OF DIABETES MANAGEMENT BY EOE Goal Provider Goal - PATIENT / CAREGIVER WILL VERBALIZE/DEMONSTRATE UNDERSTANDING OF MEASURES TO MANAGE ALTERED GENITOURINARY STATUS BY END OF EPISODE. Goal Provider Goal - PATIENT/CAREGIVER WILL VERBALIZE/DEMONSTRATE UNDERSTANDING OF CARE AND MANAGEMENT OF URINARY INCONTINENCE BY EOE. Goal Provider Goal - PATIENT WILL DEMONSTRATE IMPROVEMENT IN S/S OF UTI TO AVOID HOSPITALIZATION. Goal Provider Goal - PATIENT/CAREGIVER WILL VERBALIZE/DEMONSTRATE UNDERSTANDING OF FALL RISK FACTORS AND IMPLEMENT STRATEGIES TO MINIMIZE FALL RISK. PATIENT/CAREGIVER WILL VERBALIZE/DEMONSTRATE AN ABILITY TO ADHERE TO FALL REDUCTION SELF-MANAGEMENT AND LIFE-STYLE CHANGES BY Goal Provider Goal - Goal Provider Goal - Goal Provider Goal - Goal Provider Goal - PATIENT/CAREGIVER WILL VERBALIZE UNDERSTANDING OF CARE AND MANAGEMENT OF ANEMIA BY END OF EPISODE. Goal Provider Goal - OT LTG: PATIENT WILL DEMONSTRATE IMPROVEMENT IN MODIFIED EDUARDO INDEX SCORE FROM 91 TO 94 INDICATING DECREASED DEPENDENCY ON CAREGIVER ASSISTANCE WITH ACTIVITIES OF DAILY LIVING WITHIN 6 WEEKS. OT LTG: PATIENT WILL DEMONSTRATE IMPROVED ABILITY AND SAFETY TO PERFORM BATH/SHOWER TRANSFER FROM SBA TO SUP WITHIN 6 WEEKS. OT STG: PATIENT WILL SAFELY RETRIEVE AND TRANSPORT ITEMS IN KITCHEN AREA WITH SBA WITH USE OF AE NEEDED WITHIN 4 WEEKS. OT LTG: PATIENT WILL BE ABLE TO SAFELY RETRIEVE ITEMS IN LIVING AREA FROM MIN A TO MOD I USING AE NEEDED IN ORDER TO REDUCE FALL RISK WITHIN 6 WEEKS OT LTG: PATIENT WILL DEMONSTRATE INCREASED ABILITY IN UTILIZING VISION COMPENSATION STRATEGIES FROM SBA TO MOD I WITHIN 6 WEEKS IN ORDER TO REDUCE FALL RISK AND COMPLETE FUNCTIONAL TASK WITHIN 6 WEEKS. OT LTG: PATIENT WILL DEMONSTRATE IMPROVED POSTURAL CONTROL AND DECREASED FALL RISK EVIDENCED BY AN IMPROVEMENT IN FUNCTIONAL REACH SCORE FROM 5 TO 6 WITHIN 6 WEEKS IN ORDER TO SAFELY COMPLETE ADLS. OT LTG: PATIENT WILL DEMONSTRATE IMPROVED BUE MUSCLE STRENGTH EVIDENCED BY AN IMPROVEMENT IN MMT/FUNCTIONAL STRENGTH FROM 4-/5 TO 4/5 WITHIN 6 WEEKS IN ORDER TO COMPLETE ADLS. OT GOAL: PATIENT/CAREGIVER WILL BE ABLE TO VERBALIZE UNDERSTANDING OF A PACEMAKER, SIGNS/SYMPTOMS TO REPORT, WELL SELF-MANAGEMENT AND LIFE-STYLE CHANGES TO IMPROVE QUALITY OF LIFE AND REDUCE CAREGIVER BURDEN BY END OF EPISODE. OT LTG: PATIENT WILL MAINTAIN OXYGEN SATURATION WITHIN PHYSICIAN ORDERED PARAMETERS THROUGHOUT THE EPISODE OF CARE. OT LTG: PATIENT/CAREGIVER WILL BE ABLE TO IMPLEMENT RECOMMENDATIONS SPECIFIC TO FALL REDUCTION FOR IMPROVED ADL/IADL COMPLETION AND HOME SAFETY BY END OF EPISODE. OT LTG: PATIENT WILL BE INDEPENDENT WITH IMPLEMENTATION OF HEP WITHIN 6 WEEKS. OT GOAL: PATIENT/CAREGIVER WILL BE ABLE TO IDENTIFY SIGNS OF EXACERBATION OF HYPERTENSION AND WILL VERBALIZE/DEMONSTRATE AN ABILITY TO ADHERE TO HYPERTENSION SELF-MANAGEMENT AND LIFE-STYLE CHANGES BY END OF EPISODE. Goal Provider Goal - PT LTG: PATIENT WILL DEMONSTRATE IMPROVED SAFE FUNCTIONAL MOBILITY BY IMPROVING AMBULATION FROM CGA WITH WHEELED WALKER TO INDEPENDENT WITH WHEELED WALKER 250FT IN ORDER TO NAVIGATE TO DINING AREA IN 4 WEEKS PT LTG: PATIENT WILL DEMONSTRATE REDUCED FALL RISK EVIDENCED BY IMPROVED TINETTI FROM 17 TO 22 IN 3 WEEKS PT STG: PATIENT WILL DEMONSTRATE IMPROVED ABILITY TO PERFORM SIT TO/FROM STAND TRANSFERS TO REDUCE THE RISK OF SKIN BREAKDOWN AND REDUCE FALL RISK FROM CGA TO INDEP PT LTG: PATIENT WILL MAINTAIN OXYGEN SATURATION WITHIN PHYSICIAN ORDERED PARAMETERS THROUGHOUT EPISODE OF CARE. PT GOAL: PATIENT/CAREGIVER WILL DEMONSTRATE UNDERSTANDING OF OXYGEN SAFETY, CARE, AND MANAGEMENT BY END OF EPISODE AND PATIENT WILL MAINTAIN SAFE OXYGEN LEVELS DURING ACTIVITY PATIENTS BLOOD SUGAR WILL REMAIN WELL CONTROLLED WITH SELF-MANAGEMENT THROUGHOUT EPISODE OF CARE. PT LTG: PATIENT/CAREGIVER WILL DEMONSTRATE ADHERENCE TO FALL REDUCTION SELF-MANAGEMENT AND REDUCING FALL RISK FACTORS TO MINIMIZE FALL RISK BY END OF EPISODE PT LTG: PATIENT WILL BE INDEPENDENT WITH IMPLEMENTATION OF HEP WITHIN 2WEEKS PATIENT/CAREGIVER WILL BE ABLE TO IDENTIFY SIGNS OF HYPER- AND HYPOGLYCEMIA AND VERBALIZE HOW TO MANAGE SYMPTOMS. Encounters Start Date/Time End Date/Time Encounter Type Admission Type Attending [facility] Department Encounter ID Discharge Date Discharge Status Discharge Condition Discharge Reason Percent Goals Met 2024-12-08 00:00:00 2025-02-05 00:00:00 Outpatient NEW ADMISSION FOR[facility]LY [facility] [id number] 80.00
--- OUTSIDE RECORDS SUMMARY | 2024-12-12 17:27 | XMS_ITS | Referral Summary ---
Author Organization [facility] Address [address] [place] [id number] Care Team Providers Care Home Care Music Therapist Name Role Phone Toribio Loemli DO Primary Care Provider [phone] Allergies Active Allergy Reactions Criticality Noted Date [...] fixation Assessment & Plan (12/30/2023 9:13 PM GALLERY OR MUSEUM CURATOR): Trial of latanoprost at independent living facility with assistance for AM dosing successful to lower intraocular pressure (IOP) to low teens CPM Discussed with family and pt- defer diode tool technician for now Refer to Dr. Humphries- closer for pt convenience I will be happy to see in future prn Assessment & Plan (11/11/2023 8:56 PM GALLERY OR MUSEUM CURATOR): New patient referred from S No light [...] breathing difficulty referred by Joann Barreto OD ([facility] [place], [facility]) for blurred vision. History is limited as [...] 03/25/2017 Assessment & Plan (11/11/2023 8:56 PM GALLERY OR MUSEUM CURATOR): No retinopathy Social History Tobacco Use Types Packs/Day Years Used Date Smoking Tobacco: Never Tobacco Cessation:Counseling Given: Not Answered Comments Unknown Sex and Gender Information Value Date Recorded Sex Assigned at Not on file Legal Sex Female 1:31 PM CDT Gender Identity Not on file Sexual Orientation Not on file Plan of Treatment Not on file Insurance MEDICARE MEDICARE IDOH MEDICARE IDOH Care Teams Home Care Music Therapist Relationship Specialty Start Date End Date Toribio Lomeli DO PCP - General Internal Medicine 08/14/21
--- OUTSIDE RECORDS SUMMARY | 2024-12-12 17:27 | XMS_ITS | Clinical Summary ---
Author Organization [facility] Address [address] [place] [address] Care Team Providers Care Management Sme Name Role Phone Temi Lomeli DO Primary Care Provider [phone] Allergies Active Allergy Reactions Criticality Noted Date Comments Penicillins Unknown,Hives,Rash High 03/25/2017 Medications metFORMIN 1000 MG tabletIndication s:Type 2 diabetes mellitus without complication, with long-term current use of insulin ([facility]) Take 1 tablet (1,000 mg total) by mouth 2 (two) times daily with meals. 60 tablet 0 Active terbinafine (LAMISIL) 250 MG tablet Take 1 tablet (250 mg total) by mouth every other day. 3 Active atorvastatin (LIPITOR) 20 MG tablet 3 Active indapamide (LOZOL) 2.5 MG tablet Take 1 tablet (2.5 mg total) by mouth every morning. Active hydrALAZINE (APRESOLINE) 25 MG tablet Take 1 tablet (25 mg total) by mouth 2 (two) times daily. Active dapagliflozin (FARXIGA) 10 MG tablet Take 1 tablet (10 mg total) by mouth daily. Active Vitamin D3 (CHOLECALCIFEROL ) 50 mcg tablet Take 1 tablet (50 mcg total) by mouth daily. Active latanoprost (XALATAN) 0.005 % ophthalmic solution Place 1 drop into the left eye daily. Active metoprolol tartrate (LOPRESSOR) 50 MG tablet Take 1 tablet (50 mg total) by mouth 2 (two) times daily for 30 days. 60 tablet 5 12/28/19 25 Active amLODIPine (NORVASC) 5 MG tablet Take 1 tablet (5 mg total) by mouth daily for 30 days. 30 tablet 5 12/29/19 25 Active albuterol sulfate HFA (PROAIR HFA) 108 (90 Base) MCG/ACT inhalerIndicatio ns:Acute bronchitis, unspecified organism Inhale 2 puffs into the lungs every 6 (six) hours as needed for Wheezing. 1 Inhaler 9 11/18/19 25 Discontinue d(Error) predniSONE 20 MG tabletIndication s:Bronchitis Take two tablets every day for five days 10 tablet 0 11/18/19 25 Discontinue d(Error) amLODIPine-benaz epril 5-20 MG capsuleIndicatio ns:Benign essential hypertension Take 1 capsule by mouth daily. 30 capsule 0 11/27/19 25 Discontinue d(Stop Taking at Discharge) amLODIPine Besy-Benazepril HCl 10-40 MG Cap 1 capsule. 1 11/18/19 25 Discontinue d(Error) metoprolol succinate ER (TOPROL-XL) 50 MG 24 hr tablet Take 1 tablet (50 mg total) by mouth daily. 3 11/27/19 25 Discontinue d(Stop Taking at Discharge) amLODIPine Besy-Benazepril HCl 10-40 MG Cap Take 1 capsule by mouth daily. 11/27/19 25 Discontinue d(Stop Taking at Discharge) metroNIDAZOLE (FLAGYL) 500 MG tablet Take 1 tablet (500 mg total) by mouth 2 (two) times daily for 5 days. 10 tablet 5 12/02/19 25 Active Problems Problem Noted Date Diagnosed Date SSS (sick sinus syndrome) ([facility]) 10/27 Overview (11/21/2024): Medtronic [place] Pacemaker implanted for SSS Status post cardiac pacemaker procedure 11/21/19 25 Overview (11/21/2024): Medtronic Prema Pacemaker implanted for SSS Heart block 11/18/2024 Bradycardia 11/18/2024 CKD (chronic kidney disease), stage III ([facility]) 03/27/2017 Benign essential hypertension 03/25/2017 Diabetes mellitus, type II ([facility]) Obesity, diabetes, and hyper tension syndrome ([facility]) 03/25/2017 Resolved Problems Problem Noted Date Diagnosed Date Resolved Date Wears glasses 12/31/2017 07/06/2020 Encounters Date Type Department Care Team Description 12/01/2024 2:00 PM YARD CLERK Allied Health/Nurse Visit [facility] [address], [address] [address] Humphrey Mclain MD Remote Device Check 12/01/2024 Telephone [facility] [address], [address] [address] Serenity Howard RN Question 12/01/2024 Travel 11/28/2024 Telephone [facility], [address] [address] Sabrina De La Rosa MA Postop Followup 11/22/2024 Telephone [facility] [address] [facility], [address] [address] Sabrina De La Rosa MA Follow Up Call 11/21/2024 Telephone [facility] Care Management [address] [place] [address] Thi Shore, fiber technician (Swing bed [facility] to [facility] from [facility]/) 11/21/2024 Scan [facility], [address] [address] Scanned, Doc Pccl 11/18/2024 4:26 PM YARD CLERK - 11/27/2024 1:35 PM YARD CLERK Hospital Encounter [place] Telemetry Unit A [address] [facility] [address] Alena Tovar MD Duenas, Vincent J, MD Simpson, Stephanie L, DO Discharge Disposition: Inpatient Rehab Facility 11/18/2024 8:17 AM YARD CLERK - 11/18/2024 3:39 PM [facility] Emergency [facility] Emergency Room [address] [place] [address] Tayla Garcia MD Weakness Discharge Disposition: Transfer to Acute Care Hospital 11/18/2024 Travel 09/19/2024 Telephone [facility] Family & Internal Medicine [facility] [address] [place] [address] Jean Mark MD Error from Last 3 Months Immunizations Name Administration Dates Next Due Fluzone 6 Months+ Quad (0.5 mL Prefilled Syringe ) 07/25/2019 Fluzone Adult - >Age 3 (Prefilled Syringe) 08/11 Family History Medical History Relation Comments Diabetes Brother Diabetes Maternal Aunt Diabetes Maternal Uncle Alzheimers Mother Diabetes Mother Diabetes Paternal Aunt Diabetes Paternal Uncle Diabetes Sister Breast Cancer Neg Hx Relation Status Comments Brother Maternal Aunt Maternal Uncle Mother Paternal Aunt Paternal Uncle Sister Social History Tobacco Use Types Packs/Day Years Used Date Smoking Tobacco: Never Smokeless Tobacco: Never Tobacco Cessation:Counseling Given: No Alcohol Use Standard Drinks/Week Comments No 0 (1 standard drink = 0.6 oz pur e alcohol) [facility] Utilities Answer Date Recorded In the past 12 months has e [employer], gas, oil, or water [employer] threatened to shut off services in your home? No 11/18/2024 Humiliation, Afraid, Rape, and Kick questionnair e Answer Date Recorded Within the last year, have y ou been afraid of your partner or ex-partner? No 11/18/2024 Within the last year, have y ou been humiliated or emotionally abused in other ways by your partner or ex-partner? No Within the last year, have y ou been kicked, hit, slapped, or otherwise physically hurt by your partner or ex-partner? No 11/18/2024 Within the last year, have y ou been raped or forced to have any kind of sexual activity by your partner or ex-partner? No 11/18/2024 AUDIT-C Answer Date Recorded Frequency of Alcohol Consumption Never 10/04/2018 Average Number of Drinks Not on file 018 Frequency of Binge Drinking Not on file 09/25 Overall Financial Resource Strain (CARDIA) Answe r Date Recorded How hard is it for you to pa y for the very basics like food, housing, medical care, and heating? Not hard at all 11/18/2024 PHQ-2 Answer Date Recorded PHQ-2 Score - If the patient scores above 3, please move on to questions 3-9 0 05/17/2020 Hunger Vital Sign Answer Date Recorded Within the past 12 months, y ou worried that your food would run out before you got the money to buy more. Never true 11/18/19 25 Within the past 12 months, t he food you bought just didn't last and you didn't have money to get more. Never true 11/18/2024 PRAPARE - Transportation Answer Date Re corded In the past 12 months, has l ack of transportation kept you from medical appointments or from getting medications? No 10/27 In the past 12 months, has l ack of transportation kept you from meetings, work, or from getting things needed for daily living? No 11/18/2024 Housing Stability Vital Sign Answer Robert e Recorded In the last 12 months, was t here a time when you were not able to pay the mortgage or rent on time? No 11/18/2024 In the past 12 months, how m any times have you moved where you were living? 1 11/18/2024 At any time in the past 12 m [facility], were you homeless or living in a jail (including now)? No 11/18/2024 Comments No Sex and Gender Information Value Date Recorded Sex Assigned at Female 11/18/2024 5:10 PM YARD CLERK Legal Sex Female 7:29 PM CDT Gender Identity Female 11/18/2024 5:33 PM YARD CLERK Sexual Orientation Not on file Last Filed Vital Signs Vital Sign Reading Time Taken Comments Blood Pressure 126/60 11/27/2024 11:20 AM YARD CLERK Pulse 59 11/27/2024 11:20 AM YARD CLERK Temperature 36.5 C (97.7 F) 11/27/2024 11:20 AM YARD CLERK Respiratory Rate 18 11/27/2024 11:20 AM YARD CLERK Oxygen Saturation 94% 11/27/2024 11:20 AM YARD CLERK Inhaled Oxygen Concentration - - Weight 97 kg (213 lb 13.5 oz) 11/27/2024 3:27 AM YARD CLERK Height 167.6 cm (5' 5.98 ) 11/18/2024 5:52 PM CS T Body Mass Index 34.53 11/18/2024 5:52 PM YARD CLERK Plan of Treatment Upcoming Encounters Date Type Department Care Team (Late st Contact Info) Description 12/23/2024 10:45 AM YARD CLERK Office Visit [facility], [address] [address] Ara Sharp JEWELRY DRILLING MACHINE OPERATOR-C [facility]. [facility] [address] [place] [address] 02/20/2025 2:15 PM CDT Allied Health/Nurse Visit [facility], [facility] [address] [place] [address] Humphrey Mclain MD [facility]. [facility] [address] [place], [place] [address] Health Maintenance Due Date Last Done Comments Colorectal Cancer Screening Colonoscopy (10 Years) 1956 Kidney Health Evaluation 1955 Pneumococcal Vaccine: 65+ Years (1 of 2 - PCV) 1962 Hepatitis C 1974 DTaP, Tdap and Td Vaccines (1 - Tdap) 1975 Zoster Vaccines (1 of 2) 2006 RSV Immunization or 60+ Years (1 - Risk 60-74 years 1-dose series) 2016 Hemoglobin A1C 11/24/2020 05/24/2020, 06/28, 01/17/2019, Additional history exists Annual Medicare Wellness Visit 2021 Dexa Scan (General) 2021 Mammogram Screening 04/13/2022 04/13/2020, 04/12/2019, 04/08/2018 Diabetes: Retinopathy Eye Exam 04/12/2023 04/12/2021, 06/25/2020 COVID-19 Vaccine ( season) 2024 12/20/2020, 11/22/2020 Influenza Adult (#1) 2024 08/11/2020, 07/26/2020, 07/25/2019 PHQ-2 (Physician Odanah) 10/26/2024 Lipid Panel 11/20/2025 11/20/2024 Meningococcal B Vaccine Aged Out No l onger eligible based on patient's age to complete this topic Meningococcal Vaccine Aged Out No timmy brock eligible based on patient's age to complete this topic RSV Immunizations Under 20 Months Aged Out No longer eligible based on patient's age to complete this topic Goals Goal Patient Goal Type Associated Problems Recent Progress Patient-Stated? Author Health - patient able to perform ADLs independently Lifestyle No Reyna Thurston electrolog operator - family caregiver with be involved in care transitions and discharge planning Lifestyle Geri Dawn RN Medical Devices Implanted Type Area Engraver Picture Device Identifier Shelf Expiration Date Model / Serial / Lot Rv Lead Dcevtlw-Tdz-C ia-11/20/2024 Implanted:Qty : 1 on 11/20/2024 by Humphrey Mclain MD Lead Implant [employer] CARDIAC RHYTHM AND HEART FAILURE - DIV M [id number] 08/19/2026 [id number] / [id number] / Description:RV-Septum Ra Lead Ssaykze-Zwi-Y ri-11/20/2024 Implanted:Qty : 1 on 11/20/2024 by Humphrey Mclain MD Lead Implant [employer] CARDIAC RHYTHM AND HEART FAILURE - DIV M [id number] 08/04/2026 5076-45 / [id number] / Description:RA-Appendage Pacemaker-Dwaine Parkinson-Mri- Implanted:Qty : 1 on 11/20/2024 by Humphrey Mclain MD Pacemaker [employer] CARDIAC RHYTHM AND HEART FAILURE - DIV M [id number] 04/08/2026 [id number] / [id number] / Procedures Procedure Name Priority Date/Time Associated Diagnosis Comments POCT GLUCOSE - ATKINS DOCKED DEVICE Routine 11/27/2024 11:20 AM YARD CLERK CBC W/DIFF AUTOMATED Routine 11/27/2024 8:54 AM YARD CLERK BASIC METABOLIC PANEL Routine 11/27/2024 8:54 AM YARD CLERK POCT GLUCOSE - ATKINS DOCKED DEVICE Routine 11/27/2024 6:03 AM YARD CLERK POCT GLUCOSE - ATKINS DOCKED DEVICE Routine 11/26/2024 7:54 PM YARD CLERK POCT GLUCOSE - ATKINS DOCKED DEVICE Routine 11/26/2024 4:02 PM YARD CLERK XR CHEST PORTABLE Today 11/26/2024 1:1 2 PM YARD CLERK POCT GLUCOSE - ATKINS DOCKED DEVICE Routine 11/26/2024 10:57 AM YARD CLERK POCT GLUCOSE - ATKINS DOCKED DEVICE Routine 11/26/2024 5:33 AM YARD CLERK CBC W/DIFF AUTOMATED Routine 11/26/2024 5:15 AM YARD CLERK BASIC METABOLIC PANEL Routine 11/26/2024 5:15 AM YARD CLERK POCT GLUCOSE - ATKINS DOCKED DEVICE Routine 11/25/2024 8:15 PM YARD CLERK POCT GLUCOSE - ATKINS DOCKED DEVICE Routine 11/25/2024 4:30 PM YARD CLERK POCT GLUCOSE - ATKINS DOCKED DEVICE Routine 11/25/2024 11:26 AM YARD CLERK CBC W/DIFF AUTOMATED Routine 11/25/2024 9:15 AM YARD CLERK BASIC METABOLIC PANEL Routine 11/25/2024 9:15 AM YARD CLERK POCT GLUCOSE - ATKINS DOCKED DEVICE Routine 11/25/2024 5:39 AM YARD CLERK POCT GLUCOSE - ATKINS DOCKED DEVICE Routine 11/24/2024 7:49 PM YARD CLERK POCT GLUCOSE - ATKINS DOCKED DEVICE Routine 11/24/2024 6:01 PM YARD CLERK POCT GLUCOSE - ATKINS DOCKED DEVICE Routine 11/24/2024 12:13 PM YARD CLERK POCT GLUCOSE - ATKINS DOCKED DEVICE Routine 11/24/2024 6:26 AM YARD CLERK CBC W/DIFF AUTOMATED Routine 11/24/2024 5:00 AM YARD CLERK BASIC METABOLIC PANEL Routine 11/24/2024 5:00 AM YARD CLERK POCT GLUCOSE - ATKINS DOCKED DEVICE Routine 11/23/2024 7:57 PM YARD CLERK POCT GLUCOSE - ATKINS DOCKED DEVICE Routine 11/23/2024 5:55 PM YARD CLERK POCT GLUCOSE - ATKINS DOCKED DEVICE Routine 11/23/2024 11:10 AM YARD CLERK XR CHEST PORTABLE Today 11/23/2024 9:3 8 AM YARD CLERK CBC W/DIFF AUTOMATED Routine 11/23/2024 4:30 AM YARD CLERK BASIC METABOLIC PANEL Routine 11/23/2024 4:30 AM YARD CLERK POCT GLUCOSE - ATKINS DOCKED DEVICE Routine 11/22/2024 8:51 PM YARD CLERK POCT GLUCOSE - ATKINS DOCKED DEVICE Routine 11/22/2024 4:57 PM YARD CLERK POCT GLUCOSE - ATKINS DOCKED DEVICE Routine 11/22/2024 12:09 PM YARD CLERK POCT GLUCOSE - ATKINS DOCKED DEVICE Routine 11/22/2024 8:05 AM YARD CLERK CBC W/DIFF AUTOMATED Routine 11/22/2024 3:30 AM YARD CLERK BASIC METABOLIC PANEL Routine 11/22/2024 3:30 AM YARD CLERK POCT GLUCOSE - ATKINS DOCKED DEVICE Routine 11/21/2024 8:31 PM YARD CLERK POCT GLUCOSE - ATKINS DOCKED DEVICE Routine 11/21/2024 4:35 PM YARD CLERK POCT GLUCOSE - ATKINS DOCKED DEVICE Routine 11/21/2024 12:20 PM YARD CLERK TRICHOMONAS ANTIGEN Routine 11/21/2024 1 1:16 AM YARD CLERK CHLAMYDIA GC RNA Routine 11/21/2024 11:1 6 AM YARD CLERK CULTURE, GENITAL W/ GRAM STAIN Routine 11/21/2024 11:16 AM YARD CLERK POCT GLUCOSE - ATKINS DOCKED DEVICE Routine 11/21/2024 7:39 AM YARD CLERK CBC W/DIFF AUTOMATED Routine 11/21/2024 4:15 AM YARD CLERK BASIC METABOLIC PANEL Routine 11/21/2024 4:15 AM YARD CLERK POCT GLUCOSE - ATKINS DOCKED DEVICE Routine 11/20/2024 8:51 PM YARD CLERK POCT GLUCOSE - ATKINS DOCKED DEVICE Routine 11/20/2024 8:12 PM YARD CLERK POCT GLUCOSE - ATKINS DOCKED DEVICE Routine 11/20/2024 5:21 PM YARD CLERK XR CHEST PORTABLE Today 11/20/2024 1:4 0 PM YARD CLERK POCT GLUCOSE - ATKINS DOCKED DEVICE Routine 11/20/2024 11:26 AM YARD CLERK XA PACEMAKER Today 11/20/2024 10:51 AM YARD CLERK ECG 12-LEAD Routine 11/20/2024 8:40 AM YARD CLERK PARTIAL THROMBOPLASTIN TIME,PTT Routine 11/20/2024 4:15 AM YARD CLERK PROTHROMBIN TIME, VENOUS Routine 11/20/2024 4:15 AM YARD CLERK CBC W/DIFF AUTOMATED Routine 11/20/2024 4:15 AM YARD CLERK BASIC METABOLIC PANEL Routine 11/20/2024 4:15 AM YARD CLERK LIPID PANEL Routine 11/20/2024 4:15 AM YARD CLERK POCT GLUCOSE - ATKINS DOCKED DEVICE Routine 11/19/2024 9:19 PM YARD CLERK ECG 12-LEAD Routine 11/19/2024 4:23 PM YARD CLERK POCT GLUCOSE - ATKINS DOCKED DEVICE Routine 11/19/2024 4:11 PM YARD CLERK USE ECHOCARDIOGRAM W CON Today 11/19/2024 1:00 PM YARD CLERK POCT GLUCOSE - ATKINS DOCKED DEVICE Routine 11/19/2024 12:34 PM YARD CLERK URINE BACTERIA CULTURE Routine 12:07 PM YARD CLERK HC URINALYSIS AUTO W/O MICRO Routine 11/19/2024 12:07 PM YARD CLERK POCT GLUCOSE - ATKINS DOCKED DEVICE Routine 11/19/2024 11:12 AM YARD CLERK BASIC METABOLIC PANEL Routine 11/19/2024 4:00 AM YARD CLERK CBC W/DIFF AUTOMATED Routine 11/19/2024 4:00 AM YARD CLERK POCT GLUCOSE - ATKINS DOCKED DEVICE Routine 11/18/2024 8:40 PM YARD CLERK BASIC METABOLIC PANEL TIMED 11/18/2024 8:30 PM YARD CLERK MRSA SCREENING Routine 11/18/2024 6:00 PM YARD CLERK POCT GLUCOSE - ATKINS DOCKED DEVICE Routine 11/18/2024 5:29 PM YARD CLERK CRITICAL CARE Routine 11/18/2024 9:52 AM YARD CLERK URINALYSIS, AUTO, COMPLETE STAT 11/18/2024 9:29 AM YARD CLERK XR CHEST PA+LAT STAT 11/18/2024 9:04 AM YARD CLERK CORONAVIRUS (COVID 19) STAT 9:00 AM YARD CLERK INFLUENZA A & B STAT 11/18/2024 9:00 AM YARD CLERK ECG 12-LEAD Routine 11/18/2024 8:38 AM YARD CLERK TSH W/REFLEX STAT 11/18/2024 8:20 AM YARD CLERK MAGNESIUM STAT 11/18/2024 8:20 AM YARD CLERK PRO-BRAIN NATRIURETIC PEPTIDE STAT 11/18/2024 8:20 AM YARD CLERK TROPONIN, QUANT STAT 11/18/2024 8:20 AM YARD CLERK COMPREHENSIVE METABOLIC PANEL STAT 11/18/2024 8:20 AM YARD CLERK CBC W/DIFF AUTOMATED STAT 11/18/2024 8:20 AM YARD CLERK DIABETIC RETINOPATHY EXAM (NEGATIVE)(SCAN ORDER) Routine 04/12/2021 HEMOGLOBIN, GLYCOSYLATED Routine 05/24/2020 Type 2 diabetes mellitus without complication, with long-term current use of insulin ([facility]CC HHS/HCC) MG SCREENING W REANNA MICHEAL DIGI Routine 04/13/2020 9:38 AM CDT Breast cancer screening by mammogram from Last 3 Months or Most Recently Relevant to Health Maintenance Results * (ABNORMAL) POCT glucose (11/27/2024 11:20 AM YARD CLERK) Only the most recent of35 resultswithin the time period is included. GLUCOSE POC 112(H) 70 - 99 mg/dL 11/27/2024 11:23 AM YARD CLERK [facility] 11/27/2024 11:2 0 AM YARD CLERK us Remy Stout MD POCT ORDERABLES - DEVICE Fin al Result [facility] [address] [place] [address], * (ABNORMAL) BASIC METABOLIC PANEL (11/27/2024 8:54 AM YARD CLERK) Only the most recent of10 resultswithin the time period is included. GLUCOSE 139(H) 70 - 99 MG/DL 11/27/2024 9:32 AM [facility] BUN 43(H) 7 - 18 MG/DL 11/27/2024 9:32 AM [facility] CREATININE S/P/B 1.79(H) 0.55 - 1.02 MG/DL 11/27/2024 9:32 AM [facility] SODIUM S/P/B 137 136 - 145 MMOL/L 11/27/2024 9:32 AM [facility] POTASSIUM S/P/B 5.1 3.5 - 5.1 MMOL/L 11/27/2024 9:32 AM [facility] CHLORIDE S/P/B 103 97 - 115 MMOL/L 11/27/2024 9:32 AM [facility] CO2 31.0 21 - 32 MMOL/L 11/27/2024 9:32 AM [facility] CALCIUM S/P/B 9.8 8.5 - 10.1 MG/DL 11/27/2024 9:32 AM [facility] ANION GAP 3.0 2 - 10 MMOL/L 11/27/2024 9:32 AM [facility] BUN CREATININE RATIO 24.0 6 - 26 11/27/2024 9:32 AM [facility] GFR ESTIMATE 31(L) >90 ML/MIN/1.7 3 M2 11/27/2024 9:32 AM [facility] Comment: NOTE: eGFR is not calculated for patients <18 years of age or gender unknown. This is an estimated GFR calculation using the new CKD EPI creatinine equation without race and so does not require a correction factor for race. This estimated GFR should not be used for calculating drug doses. 11/27/2024 8:54 AM YARD CLERK us Humphrey Mcalin MD LABORATORY Final Result [facility] [address] [place] [id number], * (ABNORMAL) CBC W/DIFF AUTOMATED (11/27/2024 8:54 AM [facility]) Only the most recent of10 resultswithin the time period is included. WBC 8.30 4.5 - 11.0 x10'3/uL 11/27/2024 9:14 AM [facility] RBC 4.13(L) 4.20 - 5.40 x10'6/uL 11/27/2024 9:14 AM [facility] HGB 11.8(L) 12.0 - 16.0 G/DL 11/27/2024 9:14 AM [facility] HCT 39.3 38.0 - 48.0 % 11/27/2024 9:14 AM [facility] MCV 95.2 81.0 - 99.0 FL 11/27/2024 9:14 AM [facility] MCH 28.6 27.0 - 31.0 PG 11/27/2024 9:14 AM [facility] MCHC 30.0(L) 32.0 - 36.0 G/DL 11/27/2024 9:14 AM [facility] RDW 14.4 11.5 - 14.5 % 11/27/2024 9:14 AM [facility] PLT 180 130 - 400 x10'3/uL 11/27/2024 9:14 AM [facility] MPV 10.3 9.3 - 12.2 FL 11/27/2024 9:14 AM [facility] DIFFERENTIAL TYPE AUTOMATED DIFFERENTIAL 11/27/2024 9:14 AM [facility] NEUTROPHILS % 70.8 % 11/27/2024 9:14 AM [facility] LYMPHOCYTES % 15.1 % 11/27/2024 9:14 AM [facility] MONOCYTES % 8.3 % 11/27/2024 9:14 AM [facility] EOSINOPHILS 5.4 % 11/27/2024 9:14 AM [facility] BASOPHILS 0.2 % 11/27/2024 9:14 AM [facility] IMMATURE GRANS % 0.2 % 11/27/19 9:14 AM [facility] ABS. NEUTROPHILS 5.87 1.80 - 7.70 x10'3/uL 11/27/2024 9:14 AM [facility] ABS. LYMPHOCYTES 1.25 1.00 - 4.80 x10'3/uL 11/27/2024 9:14 AM [facility] ABS. MONOCYTES 0.69 0.24 - 0.86 x10'3/uL 11/27/2024 9:14 AM YARD CLERK [facility] ABS. EOSINOPHILS 0.45(H) 0.04 - 0.36 x10'3/uL 11/27/2024 9:14 AM YARD CLERK [facility] ABS. BASOPHILS 0.02 0.01 - 0.08 x10'3/uL 11/27/2024 9:14 AM YARD CLERK [facility] ABS. IMMATURE GRANULOCYTES 0.02 0.00 - 0.49 x10'3/uL 11/27/2024 9:14 AM YARD CLERK [facility] 11/27/2024 8:54 AM YARD CLERK us Humphrey Mclain MD LABORATORY Final Result Performing Organization Address City/State/[facility] Co de Phone Number [facility] [address] [place] [address], [place] [phone] * XR CHEST PORTABLE (11/26/2024 1:12 PM YARD CLERK) Only the most recent of3 resultswithin the time period is included. Anatomical Region Laterality Modality Chest Radiographic Priyanka ging 11/26/2024 10:1 6 PM YARD CLERK Impressions 11/26/2024 10:18 PM YARD CLERK IMPRESSION: Possible CHF. Referred By: TAYLA GARCIA Interpreted By: Dennis Love MD, 11/26/2024 10:16 PM Narrative 11/26/2024 10:18 PM YARD CLERK [facility] [address] [place], [place] [address] EXAM: XR CHEST PORTABLE DATE: 11/26/2024 1306 hours Comparison 11/23/2024 INDICATION: Lead revision TECHNIQUE: One view FINDINGS: Dual-lead left-sided pacemaker. Mild changes in the distal position of each lead. Heart is enlarged. Central pulmonary vessels are upper normal. Mild interstitial edema is a new finding. No focal lung opacification or pleural effusion. Procedure Note Dennis Love MD - 11/26/[address] [address] EXAM: XR CHEST PORTABLE DATE: 11/26/2024 1306 hours Comparison 11/23/2024 INDICATION: Lead revision TECHNIQUE: One view FINDINGS: Dual-lead left-sided pacemaker. Mild changes in the distalposition of each lead. Heart is enlarged. Central pulmonary vessels areupper normal. Mild interstitial edema is a new finding. No focal lungopacification or pleural effusion. IMPRESSION: Possible CHF. Referred By: TAYLA GARCIA Interpreted By: Dennis Love MD, 11/26/2024 10:16 PM us Yanci Jackson PA-C GENERAL IMAGING Final Res ult * CULTURE, GENITAL W/ GRAM STAIN (11/21/2024 11:16 AM YARD CLERK) SPEC DESCRIPTION VAGINAL SPECIMEN 11/21/2024 11:18 AM YARD CLERK [facility] SPECIAL REQUESTS NO SPECIAL REQUEST 11/21/2024 11:18 AM YARD CLERK [facility] GRAM STAIN RESULT POSITIVE FOR BACTERIAL VAGINOSIS 11/21/2024 12:06 PM YARD CLERK [facility] GRAM STAIN RESULT NO YEAST SEEN 11/21/2024 12:06 PM YARD CLERK [facility] CULTURE RESULT SPARSE GROWTH OF NORMAL KEIRA PRESENT 11/23/2024 10:28 AM YARD CLERK [facility] VAGINAL STRUCTURE / Unknown 11/21/2024 11:16 AM YARD CLERK 11/21/2024 11:23 AM YARD CLERK us Remy Stout MD MICROBIOLOGY - GENERAL ORDER PRICILLA Final Result [facility] [address] [place] [address], [place] [phone] * CHLAMYDIA GC RNA (11/21/2024 11:16 AM YARD CLERK) SPEC DESCRIPTION UNKNOWN 11/21/19 25 11:22 AM YARD CLERK [facility] CHLAMYDIA RNA TMA NEGATIVE NEGATIVE 025 12:59 PM YARD CLERK [facility] Comment:PERFORMED BY NUCLEIC ACID AMPLIFICATION N.GONORRHOEAE RNA TMA NEGATIVE NEGATIVE 11/22/2024 12:59 PM YARD CLERK [facility] Comment:PERFORMED BY NUCLEIC ACID AMPLIFICATION VAGINAL STRUCTURE / Unknown 11/21/2024 11:16 AM YARD CLERK Remy Stout MD MICROBIOLOGY - GENERAL ORDER PRICILLA Final Result [facility] [address] [place] [id number], [place] [phone] [facility] [address] [place] [address], [place] [phone] * TRICHOMONAS ANTIGEN (11/21/2024 11:16 AM YARD CLERK) TRICHOMONAS NEGATIVE NEGATIVE 11/21/2024 11:42 AM YARD CLERK [facility] VAGINAL STRUCTURE / Unknown 11/21/2024 11:16 AM YARD CLERK us Remy Stout MD MICROBIOLOGY - GENERAL ORDER PRICILLA Final Result [facility] [address] [place] [address], [place] [phone] * XA PACEMAKER (11/20/2024 10:51 AM YARD CLERK) Anatomical Region Laterality Modality Cardiac Entertainment Centre Manager Narrative 11/21/2024 7:27 AM YARD CLERK Humphrey Mclain MD 11/21/2024 7:31 AM Permanent Pacemaker Implant Report PATIENT NAME: Heidy Kaufman : 1955 PCP: TEMI LOMELI DO Date of Procedure: 11/20/2024 CLINICAL HISTORY: 69-year-old year old female with episodes of bradycardia and junctional rhythm. Cable Engineer: Humphrey Mclain MD INDICATION: Sick Sinus Syndrome Procedures Performed: Implantation of a Medtronic dual chamber pacemaker. PROCEDURE Sedation was provided by lab coordinator RN and documented separately for divided doses of Versed and Fentanyl. I performed moderate sedation for 45 minutes. I supervised and directed lab coordinator RN who assisted in monitoring the patient's level of consciousness and physiologic status throughout the procedure. After obtaining informed consent the patient was transferred to the Cardiac Catheterization Laboratory. The left neck, deltopectoral and clavicular areas were prepped and draped in sterile fashion. Venogram was performed by injecting contrast into the Left forearm vein and the Left subclavian vein was identified. Access was gained to the Left subclavian vein with a micro-puncture needle and the proper position of the needle was determined by aspiration of venous blood. A wire was placed in the subclavian vein. This wire was then changed to a J wire using an exchange catheter. 1% Xylocaine and 0.25% Sensorcaine was used to anesthetize the proposed area of the pacemaker pocket inferior to the Left clavicle. An incision was made from the mid clavicular line across the entry point of the guidewire to the deltopectoral groove. Blunt and sharp dissection was used to create a pacemaker pocket in the anesthetized area along the prepectoral fascial plane in this region. Hemostasis was achieved using pressure and bovie cauterization. Access was gained using Micro-puncture needle and a second J wire was placed in the subclavian vein. Under fluoroscopy, a 6 Sammarinese vessel dilator/sheath assembly was advanced over a guidewire into the subclavian vein. The dilator and wire were removed and a permanent ventricular pacing lead was advanced under fluoroscopy alongside the guidewire through the sheath to the right atrium. The sheath was stripped away. The ventricular lead was then advanced into the right ventricle and positioned at the apex and actively fixed. The stylet was pulled back and the lead was checked for pacing and sensing thresholds. Under fluoroscopy, a 6 Sammarinese vessel dilator/sheath assembly was advanced over the second guidewire into the subclavian vein. The dilator and wire were removed and a permanent atrial pacing lead was advanced under fluoroscopy alongside the guidewire through the sheath into the right atrium. The sheath was stripped away. The atrial lead was then positioned in the right atrial appendage using a preformed J stylet and actively fixed. The stylet was pulled back and the lead was checked for pacing and sensing thresholds. Extra-cardiac stimulation did not occur with 10 volts cardiac pacing stimulus. The lead were secured by first suturing around the suture sleeve and then to subcutaneous tissue using 2-0 Ethibond suture. The atrial and ventricular leads were now connected to Medtronic pacemaker. The pacemaker was placed into the pocket. The pacemaker was noted to be pacing and sensing appropriately. The pocket was copiously irrigated with antibiotic solution. The subcutaneous tissue was closed using 3-0 vicryl and the skin was opposed using Steri-Strips. The wound was covered with Aquacel Dressing. The patient tolerated the procedure well with an estimated blood loss of 20 ml. Chest x-ray and ECG will be obtained. No complications were noted. Fluoroscopy: Yes Conclusion: Successful implantation of a Medtronic dual chamber pacemaker. Recommendation: 1. Arm sling until discharge. 2. CXR in AM to rule out pneumothorax and verify lead position. 3. Device interrogation in AM. 4. Patient education regarding new device in AM. Estimated Blood Loss: Minimal. Complications: None. Humphrey Mclain M.D. 11/21/2024 us Humphrey Mclain MD SIGNALS INTELLIGENCE SUPERINTENDENT Final Result * ECG 12 lead (11/20/2024 8:40 AM YARD CLERK) Only the most recent of3 resultswithin the time period is included. 11/20/2024 8:40 AM YARD CLERK Narrative [facility] - 11/20/2024 6:46 PM YARD CLERK [place] Test Date: 2024-11-20 Pat Name: HEIDY KAUFMAN Department: 40 Room: S22748 Gender: Female Patient Financial Specialist: : 1955 Requested By: HUMPHREY MCLAIN Order Number: [id number] Reading ADDIS Clarke Measurements Intervals [place] Rate: 53 P: 41 [place]: 179 QRS: 37 QRSD: 110 T: 40 QT: 420 QTc: 394 Interpretive Statements SINUS BRADYCARDIA INCOMPLETE RIGHT BUNDLE BRANCH BLOCK [90+ ms QRS DURATION, TERMINAL R IN V1/V2, 40+ ms S IN I/aVL/V4/V5/V6] Compared to ECG 11/19/2024 16:23:18 No significant changes CLERK Procedure Note Dannie Clarke MD - 11/20/2024 [place] Test Date: 2024-11-20 Pat Name: HEIDY KAUFMAN Department: 40 Room: [id number] Gender: Female Patient Financial Specialist: : 1955 Requested By: HUMPHREY MCLAIN Order Number: [id number] Reading ADDIS Clarke Measurements Intervals [place] Rate: 53 P: 41 [place]: 179 QRS: 37 QRSD: 110 T: 40 QT: 420 QTc: 394 Interpretive Statements SINUS BRADYCARDIA INCOMPLETE RIGHT BUNDLE BRANCH BLOCK [90+ ms QRS DURATION, TERMINAL RIN V1/V2, 40+ ms S IN I/aVL/V4/V5/V6] Compared to ECG 11/19/2024 16:23:18 No significant changes CLERK us Humphrey Mclain MD ECG ORDERABLES Final Result [facility] * (ABNORMAL) PTT, PARTIAL THROMBOPLASTIN TIME (11/20/2024 4:15 AM YARD CLERK) PTT 38.4(H) 25.1 - 36.5 SEC 11/20/2024 4:50 AM YARD CLERK [facility] 11/20/2024 4:15 AM YARD CLERK us Remy Stout MD LABORATORY Final Result [facility] [address] [place] [address], * PROTIME/INR, VENOUS (11/20/2024 4:15 AM YARD CLERK) PROTIME 12.2 10.2 - 12.9 SEC 11/20/2024 4:50 AM YARD CLERK [facility] INR 1.1 11/20/2024 4:50 AM [facility] Comment: Recommended INR Therapeutic Goals: 2.0-3.0 Routine Therapy 2.5-3.5 Mechanical Prosthetic Valves (High Risk) 11/20/2024 4:15 AM YARD CLERK us Remy Stout MD LABORATORY Final Result Performing Organization Address City/[facility]/ZIP Co de Phone Number [facility] [address] [place] [address], * LIPID PANEL (11/20/2024 4:15 AM YARD CLERK) CHOLESTEROL 80 <200 MG/DL 11/20/2024 5:03 AM YARD CLERK [facility] TRIGLYCERIDES 92 <150 MG/DL 11/20/2024 5:03 AM [facility] HDL 43 >40.0 MG/DL 11/20/2024 5:03 AM [facility] LDL (CALCULATED) 19 <100 MG/DL 11/20/19 25 5:03 AM YARD CLERK [facility] NON HDL CHOLESTEROL 37 <130 MG/DL 11/20 5:03 AM [facility] CHOL/HDL RATIO 1.9 0.0 - 4.5 11/20/2024 5:03 AM [facility] VLDL CALCULATION 18 5 - 55 MG/DL 11/20/2024 5:03 AM [facility] LIPID INTERPRETATION 11/20/2024 5:03 AM [facility] Comment: [facility] CONCENSUS REPORT RECOMMENDATIONS: ADULT CHILD LOW RISK: CHOLESTEROL <200 <170 TRIGLYCERIDE <150 --- HDL >=60 --- LDL <100 <110 BORDERLINE: CHOLESTEROL 200-239 170-199 TRIGLYCERIDE 150-199 --- HDL 40-59 --- LDL 100-159 110-129 HIGH RISK: CHOLESTEROL >=240 >=200 TRIGLYCERIDE >=200 --- HDL <40 --- LDL >=160 >=130 11/20/2024 4:15 AM YARD CLERK Dannie Clarke MD LABORATORY Final Result [facility] [address] [place] [address], [place] [phone] * USE ECHOCARDIOGRAM W CON (11/19/2024 1:00 PM YARD CLERK) Anatomical Region Laterality Modality NA Echocardiogram 11/19/2024 12:1 6 PM YARD CLERK Narrative 11/19/2024 4:31 PM YARD CLERK Echocardiography Report Pat.Name: MANDEEPKRYSTINChris Duncan.ID: [id number] .Date: 11/19/2024 : [id number] Tricia GARCIA Scott Exam Time: 12:16:00 PM Study Type:ECHO W/CONTRAST COMPLETEHeight: 65 in Weight: 205 lb BSA: 2 m2 Age: 9 1955,69Y Sex: F BP: 159/67 Sonogrphr: Sagrario Peralat [facility] Pat. Stat.:Inpatient Room: 207 Reason for Study:Weakness, Bradycardia Procedures: 2D, M-mode, Doppler, Color Flow, Definity was used to enhance endocardial definition. Portable Race: W ++++++++++++++++++++++++++++++++++++ SUMMARY: ++++++++++++++++++++++++++++++++++++ The left ventricular size is normal. The left ventricular systolic function is normal. Estimated left ventricular ejection fraction is 65-70%. Mild to moderate concentric left ventricular hypertrophy. Left ventricular diastolic function is normal. The right ventricle size is normal. The right ventricular function is normal. No significant valvular abnormalities. ++++++++++++++++++++++++++++++++++++ FINDINGS: ++++++++++++++++++++++++++++++++++++ LV: The left ventricular size is normal. The left ventricular systolic function is normal. Estimated left ventricular ejection fraction is 65-70%. Mild to moderate concentric left ventricular hypertrophy. Left ventricular diastolic function is normal. LVOT: The left ventricular outflow tract size is normal. RV: The right ventricle size is normal. The right ventricular function is normal. IVS: Intraventricular septum is normal. LA: Left atrial size is normal. RA: The right atrial size is normal. IAS: Atrial septum is normal. RAYMOND: No evidence of pericardial effusion. AO: Aorta is normal. SVn: Inferior vena cava is normal size. Inferior vena cava shows <50% collapse with respiration consistent with elevated right atrial pressure. AV: The aortic valve is trileaflet. No evidence of aortic valve stenosis. Trace aortic regurgitation. MV: Structurally normal mitral valve. Trace mitral regurgitation. No evidence of mitral stenosis. PV: Structurally normal pulmonic valve. No evidence of pulmonic valve stenosis. Mild pulmonic regurgitation. TV: Structurally normal tricuspid valve. Mild tricuspid regurgitation. Right ventricular systolic pressure is 40-50 mmHg suggestive of moderate pulmonary hypertension. No evidence of tricuspid valve stenosis. ++++++++++++++++++++++++++++++++++++ MEASUREMENTS: ++++++++++++++++++++++++++++++++++++ DOPPLER LVOT LVOTpkPG 7 mmHg LVOTmnPG 4 mmHg LVOTpkVel 136 cm/s (70-110)* LVOT SV 128 ml LVOT TVI 36.9 cm AV Forward Flow AV TVI 35.8 cm AV pkPG 8 mmHg AV pkVel 145 cm/s (100-170) Area (TVI) 3.57 cm2 (3-5) AV mnPG 5 mmHg Area (Farshad) 3.25 cm2 (3-5) MV Forward Flow MV DeTm 243 msec MV E/A 1.5 MV mnPG 3 mmHg MV pkE 125 cm/s (60-130)+ MV pkPG 6 mmHg MV pkA 85.9 cm/s PV Forward Flow PV TVI 41.9 cm PV mnVel 113 cm/s PV pkVel 182 cm/s (60-90)+* PV mnPG 6 mmHg PV pkPG 13 mmHg PV AC 127 msec PV Regurg Flow PV pkVel 128 cm/s TV Regurg Flow TV pkPG 35 mmHg TV pkVel 295 cm/s (30-70)* Lat E' Lat e 11.6 cm/s Lat E/E' Lat E/e 10.8 Med E' Med e 5.61 cm/s Med E/E' Med E/e 22.3 Aortic Valve Aortic Valve Ar 1.79 Aortic Valve Ve 0.94 Lat MA LV Peak Augustine Ti 6.31 cm/s Left Ventricle 1.8 LV Pk Sys Tissu 9.68 cm/s Med MA LV Peak Augustine Ti 7.18 cm/s Left Ventricle 0.8 LV Pk Sys Tissu 6.53 cm/s PV Antegrade Flow Acceleration Sl 976 cm/s2 PV Regurgitant Flow Peak Gradient ( 7 mmHg 2D Left Ventricle LVIDd 4.9 cm (3.6-5.2) LV ESV 27.5 ml LVIDs 3.2 cm (2.3-3.9) LV ESV 34.9 ml LngAxd 7.68 cm LVESV BP 31.7 ml LngAxd 8.89 cm LV EF 75.2 % LV EDV 111 ml LV EF 79.2 % LV EDV 168 ml LV EF BP 78.3 % LVEDV BP 146 ml LV SV 83.5 ml LngAxs 6.18 cm LV SV 133 ml LngAxs 6.69 cm LV SV BP 114 ml LVPW LVPWd 1.1 cm Right Ventricle RVIDd 2.9 cm (2.6-4.3) Right Ventricle 37 mm Right Ventricle 46 mm Right and Left 0.592 Major [place] 79 mm Ventricular Septum IVSd 1.3 cm Left Atrium LA a-p 3.7 cm (2.8-3.4)* LA VOLBP 48.7 ml Aorta Ao Rtd 2.6 cm (zsc -0.8) LVOT LVOT 2.1 cm LVOTArea 3.46 cm2 Ratios IVS LA Biplane LAVol I BP 24.4 ml/m2 Right Atrium Major [place] 55 mm Minor [place] 36 mm MMODE Aortic Valve AV sep 1.9 cm (1.5-2.6) TA Tricuspid Annul 23.6 mm <Electronic Signature> 11/19/2024 04:31 PM Dannie Clarke M.D. Procedure Note Dannie Clarke MD - 11/19/2024 Echocardiography Report Pat.Name: HEIDY KAUFMAN Pat.ID: [id number] .Date: 11/19/2024 Refer.: [id number] [facility] Scott Exam Time: 12:16:00 PM Study Type:ECHO W/CONTRAST COMPLETEHeight: 65 in Weight: 205 lb BSA: 2 m2 Age: 9 1955,69Y Sex: F BP: 159/67 Sonogrphr: Sagrario Peralta RDCS Pat. Stat.:Inpatient Room: [facility] Reason for Study:Weakness, Bradycardia Procedures: 2D, M-mode, Doppler, Color Flow, Definity was used to enhance endocardial definition. Portable Race: W ++++++++++++++++++++++++++++++++++++ SUMMARY: ++++++++++++++++++++++++++++++++++++ The left ventricular size is normal. The left ventricular systolic function is normal. Estimated left ventricular ejection fraction is 65-70%. Mild to moderate concentric left ventricular hypertrophy. Left ventricular diastolic function is normal. The right ventricle size is normal. The right ventricular function is normal. No significant valvular abnormalities. ++++++++++++++++++++++++++++++++++++ FINDINGS: ++++++++++++++++++++++++++++++++++++ LV: The left ventricular size is normal. The left ventricular systolic function is normal. Estimated left ventricular ejection fraction is 65-70%. Mild to moderate concentric left ventricular hypertrophy. Left ventricular diastolic function is normal. LVOT: The left ventricular outflow tract size is normal. RV: The right ventricle size is normal. The right ventricular function is normal. IVS: Intraventricular septum is normal. LA: Left atrial size is normal. RA: The right atrial size is normal. IAS: Atrial septum is normal. RAYMOND: No evidence of pericardial effusion. AO: Aorta is normal. SVn: Inferior vena cava is normal size. Inferior vena cava shows <50% collapse with respiration consistent with elevated right atrial pressure. AV: The aortic valve is trileaflet. No evidence of aortic valve stenosis. Trace aortic regurgitation. MV: Structurally normal mitral valve. Trace mitral regurgitation. No evidence of mitral stenosis. PV: Structurally normal pulmonic valve. No evidence of pulmonic valve stenosis. Mild pulmonic regurgitation. TV: Structurally normal tricuspid valve. Mild tricuspid regurgitation. Right ventricular systolic pressure is 40-50 mmHg suggestive of moderate pulmonary hypertension. No evidence of tricuspid valve stenosis. ++++++++++++++++++++++++++++++++++++ MEASUREMENTS: ++++++++++++++++++++++++++++++++++++ DOPPLER LVOT LVOTpkPG 7 mmHg LVOTmnPG 4 mmHg LVOTpkVel 136 cm/s (70-110)* LVOT SV 128 ml LVOT TVI 36.9 cm AV Forward Flow AV TVI 35.8 cm AV pkPG 8 mmHg AV pkVel 145 cm/s (100-170) Area (TVI) 3.57 cm2 (3-5) AV mnPG 5 mmHg Area (Farshad) 3.25 cm2 (3-5) MV Forward Flow MV DeTm 243 msec MV E/A 1.5 MV mnPG 3 mmHg MV pkE 125 cm/s (60-130)+ MV pkPG 6 mmHg MV pkA 85.9 cm/s PV Forward Flow PV TVI 41.9 cm PV mnVel 113 cm/s PV pkVel 182 cm/s (60-90)+* PV mnPG 6 mmHg PV pkPG 13 mmHg PV AC 127 msec PV Regurg Flow PV pkVel 128 cm/s TV Regurg Flow TV pkPG 35 mmHg TV pkVel 295 cm/s (30-70)* Lat E' Lat e 11.6 cm/s Lat E/E' Lat E/e 10.8 Med E' Med e 5.61 cm/s Med E/E' Med E/e 22.3 Aortic Valve Aortic Valve Ar 1.79 Aortic Valve Ve 0.94 Lat MA LV Peak [place] Ti 6.31 cm/s Left Ventricle 1.8 LV Pk Sys Tissu 9.68 cm/s Med MA LV Peak [place] Ti 7.18 cm/s Left Ventricle 0.8 LV Pk Sys Tissu 6.53 cm/s PV Antegrade Flow Acceleration Sl 976 cm/s2 PV Regurgitant Flow Peak Gradient ( 7 mmHg 2D Left Ventricle LVIDd 4.9 cm (3.6-5.2) LV ESV 27.5 ml LVIDs 3.2 cm (2.3-3.9) LV ESV 34.9 ml LngAxd 7.68 cm LVESV BP 31.7 ml LngAxd 8.89 cm LV EF 75.2 % LV EDV 111 ml LV EF 79.2 % LV EDV 168 ml LV EF BP 78.3 % LVEDV BP 146 ml LV SV 83.5 ml LngAxs 6.18 cm LV SV 133 ml LngAxs 6.69 cm LV SV BP 114 ml LVPW LVPWd 1.1 cm Right Ventricle RVIDd 2.9 cm (2.6-4.3) Right Ventricle 37 mm Right Ventricle 46 mm Right and Left 0.592 Major [place] 79 mm Ventricular Septum IVSd 1.3 cm Left Atrium LA a-p 3.7 cm (2.8-3.4)* LA VOLBP 48.7 ml Aorta Ao Rtd 2.6 cm (zsc -0.8) LVOT LVOT 2.1 cm LVOTArea 3.46 cm2 Ratios IVS LA Biplane LAVol I BP 24.4 ml/m2 Right Atrium Major [place] 55 mm Minor [place] 36 mm MMODE Aortic Valve AV sep 1.9 cm (1.5-2.6) TA Tricuspid Annul 23.6 mm <Electronic Signature> 11/19/2024 04:31 PM Dannie Clarke M.D. us Dannie Clarke MD ECHO Final Result * (ABNORMAL) URINALYSIS (11/19/2024 12:07 PM YARD CLERK) SPECIMEN TYPE URINE CLEAN CATCH 11/19/2024 12:07 PM YARD CLERK [facility] COLOR (U) LIGHT YELLOW 11/19/2024 1:45 PM YARD CLERK [facility] TRANSPARENCY CLEAR 11/19/2024 1:45 PM [facility] SPECIFIC GRAVITY (U) 1.012 1.001 - 1.030 11/19/2024 1:45 PM YARD CLERK [facility] U PH 5.5 5.0 - 9.0 11/19/2024 1:45 PM [facility] LEUKOCYTES (U) 75(A) NEGATIVE 11/19/2024 1:45 PM YARD CLERK [facility] NITRITES NEGATIVE NEGATIVE 11/19/2024 1:45 PM [facility] PROTEIN RANDOM (U) 100(H) <30 MG/DL 11/19/2024 1:45 PM [facility] GLUCOSE (U) 200(A) NORMAL MG/DL 11/19/2024 1:45 PM YARD CLERK [facility] KETONES MG/DL (U) 10(A) NEGATIVE MG/DL 11/19/2024 1:45 PM YARD CLERK [facility] Comment: Successful Call: [facility] called 11/19/2024 01:46 PM to [facility] ICU ([id number]/BOAZ MAHER) by [id number]. Read Back: Yes UROBILINOGEN NORMAL NORMAL MG/DL 11/19/2024 1:45 PM YARD CLERK [facility] BILIRUBIN (U) NEGATIVE NEGATIVE MG/DL 11/19/2024 1:45 PM YARD CLERK [facility] BLOOD (U) 1+(A) NEGATIVE 11/19/2024 1:45 PM YARD CLERK [facility] MUCUS RARE /LPF 11/19/2024 1:45 PM YARD CLERK [facility] HYALINE CASTS RARE /LPF 11/19/2024 1:45 PM YARD CLERK [facility] WBC/HPF 27(H) <6 /HPF 11/19/2024 1:45 PM YARD CLERK [facility] RBC/HPF 34(H) <6 /HPF 11/19/2024 1:45 PM YARD CLERK [facility] SQUAMOUS EPITHELIALS RARE /HPF 11/19/2024 1:45 PM YARD CLERK [facility] URINE SPECIMEN OBTAINED BY CLEAN CATCH PROCEDURE / Unknown 11/19/2024 12:07 PM YARD CLERK us Remy Stout MD URINE ORDERABLES Final Resul t [facility] [address] [place] [address], [place] [phone] * URINE BACTERIA CULTURE (11/19/2024 12:07 PM YARD CLERK) SPEC DESCRIPTION URINE CLEAN CATCH 11/19/2024 11:28 AM YARD CLERK [facility] SPECIAL REQUESTS NO SPECIAL REQUEST 11/19/2024 11:28 AM YARD CLERK [facility] CULTURE RESULT NO GROWTH 2 DAYS 11/21/2024 7:49 AM YARD CLERK [facility] URINE SPECIMEN OBTAINED BY CLEAN CATCH PROCEDURE / Unknown 11/19/2024 12:07 PM YARD CLERK 11/19/2024 12:17 PM YARD CLERK Remy Stout MD MICROBIOLOGY - GENERAL ORDER PRICILLA Final Result Performing Organization Address [facility]/ZIP Co de Phone Number [facility] [address] [place] [address], [place] [phone] * MRSA SCREENING (11/18/2024 6:00 PM YARD CLERK) SPEC DESCRIPTION NASAL 11/18/2024 6:05 PM YARD CLERK [facility] SPECIAL REQUESTS NO SPECIAL REQUEST 11/18/2024 6:05 PM YARD CLERK [facility] CULTURE RESULT NO METHICILLIN RESISTANT STAPHYLOCOCCUS AUREUS ISOLATED 11/19/2024 12:52 PM YARD CLERK [facility] SPECIMEN FROM INTERNAL NOSE / Unknown 11/18/2024 6:00 PM YARD CLERK 11/18/2024 6:14 PM YARD CLERK Alena Tovar MD MICROBIOLOGY - GENERAL ORDERABL ES Final Result [facility] [address] [place] [address], [place] [phone] * Critical Care (11/18/2024 9:52 AM YARD CLERK) Narrative Tayla Garcia MD - 11/18/2024 9:52 AM YARD CLERK Tayla Garcia MD 11/18/2024 1:50 PM Critical Care Performed by: Tayla Garcia MD Authorized by: Tayla Garcia MD Critical care provider statement: Critical care time (minutes): 90 Critical care time was exclusive of: Separately billable procedures and treating other patients Critical care was necessary to treat or prevent imminent or life-threatening deterioration of the following conditions: Cardiac failure Critical care was time spent personally by me on the following activities: Ordering and performing treatments and interventions, ordering and review of laboratory studies, ordering and review of radiographic studies, pulse oximetry, re-evaluation of patient's condition, obtaining history from patient or surrogate, examination of patient, evaluation of patient's response to treatment, discussions with consultants and development of treatment plan with patient or surrogate Care discussed with: accepting provider at another facility us Tayla Garcia MD PROCEDURE/MINOR SURGICAL O RDERABLES Final Result * (ABNORMAL) URINALYSIS, AUTO, COMPLETE (11/18/2024 9:29 AM YARD CLERK) COLOR (U) YELLOW 11/18/2024 9:42 AM [facility] TRANSPARENCY HAZY 11/18/2024 9:42 AM [facility] SPECIFIC GRAVITY (U) 1.025 1.000 - 1.030 11/18/2024 9:42 AM [facility] U PH 6.0 5.0 - 9.0 11/18/2024 9:42 AM [facility] LEUKOCYTES (U) NEGATIVE NEGATIVE 11/18/2024 9:42 AM [facility] NITRITES POSITIVE(A) NEGATIVE 11/18/2024 9:42 AM [facility] PROTEIN RANDOM (U) 2+(A) NEGATIVE 11/18/2024 9:42 AM [facility] GLUCOSE (U) 1+(A) NEGATIVE 11/18/2024 9:42 AM [facility] KETONES MG/DL (U) NEGATIVE NEGATIVE 11/18/2024 9:42 AM [facility] BILIRUBIN (U) NEGATIVE NEGATIVE 11/18/2024 9:42 AM YARD CLERK [facility] BLOOD (U) NEGATIVE NEGATIVE 11/18/2024 9:42 AM YARD CLERK [facility] WBC/HPF 0-5 0 - 5 /HPF 11/18/2024 9:42 AM YARD CLERK [facility] RBC/HPF NONE SEEN 0 - 5 /HPF 11/18/2024 9:42 AM YARD CLERK [facility] EPI/HPF FEW /HPF 11/18/2024 9:42 AM YARD CLERK [facility] BACTERIA (U) MODERATE /HPF 11/18/2024 9:42 AM YARD CLERK [facility] URINE, STRAIGHT CATH 11/18/2024 9:29 AM YARD CLERK us Tayla Garcia MD URINE ORDERABLES Final Res ult [facility] [address] [place] [address], [place] [phone] * XR CHEST PA+LAT (11/18/2024 9:04 AM YARD CLERK) Anatomical Region Laterality Modality Chest Radiographic Priyanka ging 11/18/2024 9:13 AM YARD CLERK Impressions 11/18/2024 9:14 AM YARD CLERK IMPRESSION: Cardiac silhouette enlargement. Diffuse alveolar and interstitial opacifications. Findings may relate to pneumonia or pulmonary edema. Correlation correlation recommended. Follow-up in 8 weeks is recommended to ensure resolution. Ordered By: TAYLA GARCIA Interpreted By: Vernon Nicholson MD, 11/18/2024 9:13 AM Narrative 11/18/2024 9:14 AM YARD CLERK [facility] [address] [facility] [place] [address] Procedure(s): XR CHEST PA+LAT Date of service: 11/18/2024 8:35 AM Provided clinical information: 69 years, Female, dyspnea Procedure and materials: PA and lateral Comparison studies: February 07, 2023. Findings: Cardiac silhouette is enlarged. Mild pulmonary vascular prominence is present. Diffuse alveolar and interstitial opacifications are present. This concerning for pulmonary edema or pneumonia. Procedure Note Vernon Nicholson MD - 11/18/2024 [facility] [address] [place] [address] Procedure(s): XR CHEST PA+LAT Date of service: 11/18/2024 8:35 AM Provided clinical information: 69 years, Female, dyspnea Procedure and materials: PA and lateral Comparison studies: February 07, 2023. Findings: Cardiac silhouette is enlarged. Mild pulmonary vascular prominence ispresent. Diffuse alveolar and interstitial opacifications are present. Thisconcerning for pulmonary edema or pneumonia. IMPRESSION: Cardiac silhouette enlargement. Diffuse alveolar and interstitialopacifications. Findings may relate to pneumonia or pulmonary edema.Correlation correlation recommended. Follow-up in 8 weeks is recommended to ensure resolution. Ordered By: TAYLA GARCIA Interpreted By: Vernon Nicholson MD, 11/18/2024 9:13 AM us Tayla Garcia MD GENERAL IMAGING Final Resu lt * CORONAVIRUS (COVID-19) MOLECULAR (11/18/2024 9:00 AM YARD CLERK) CORONAVIRUS SARS COV 2 RNA NEGATIVE NEGATIVE 11/18/2024 9:[address] [facility] Comment: NEGATIVE RESULTS DO NOT RULE OUT COVID 19 AND SHOULD NOT BE USED THE SOLE BASIS FOR TREATMENT OR PATIENT MANAGEMENT DECISIONS, INCLUDING INFECTION CONTROL DECISIONS. NEGATIVE RESULTS SHOULD BE CONSIDERED IN THE CONTEXT OF A PATIENT'S RECENT EXPOSURES, HISTORY AND THE PRESENCE OF CLINICAL SIGNS AND SYMPTOMS CONSISTENT WITH COVID 19. THE ID NOW COVID-19 2.0 TEST HAS BEEN AUTHORIZED BY THE FDA UNDER EAU FOR USE BY AUTHORIZED LABORATORIES. PERFORMED BY NUCLEIC ACID AMPLIFICATION FOR MOLECULAR QUALITATIVE DETECTION OF SARS-COV-2. SPECIMEN TYPE NASAL 11/18/2024 9:04 AM YARD CLERK [facility] NASOPHARYNGEAL SWAB / Unknown 11/18/2024 9:00 AM YARD CLERK us Tayla Garcia MD MICROBIOLOGY - GENERAL ORD ERABLES Final Result Performing Organization Address [facility] de Phone Number [facility] [address] [place] [address], [place] [phone] * INFLUENZA A & B (11/18/2024 9:00 AM YARD CLERK) SPECIMEN TYPE NASOPHARYNGEAL SWAB 11/18/2024 9:05 AM [facility] INFLUENZA A NEGATIVE NEGATIVE 11/18/2024 9:23 AM YARD CLERK [facility] INFLUENZA B NEGATIVE NEGATIVE 11/18/2024 9:23 AM YARD CLERK [facility] NASAL NASOPHARYNGEAL SWAB / Unknown 11/18/2024 9:00 AM YARD CLERK Tayla Garcia MD MICROBIOLOGY - GENERAL ORD ERABLES Final Result Performing Organization Address [facility] de Phone Number [facility] [address] [place] [address], [place] [phone] * TSH W/REFLEX (11/18/2024 8:20 AM YARD CLERK) TSH 3.567 0.358 - 3.74 uIU/ML 11/18/2024 8:59 AM YARD CLERK [facility] Comment: HIGH DOSES OF BIOTIN MAY INTERFERE WITH THIS TEST RESULT. CORRELATION TO CLINICAL HISTORY AND PRESENTATION RECOMMENDED. FREE T4 NOT INDICATED 11/18/2024 8:20 AM YARD CLERK us Tayla Garcia MD LABORATORY Final Resu lt Performing Organization Address [facility] Co de Phone Number [facility] [address] [place] [address], [place] [phone] * (ABNORMAL) PRO-BRAIN NATRIURETIC PEPTIDE (11/18/2024 8:20 AM YARD CLERK) PRO-B TYPE NATRIURETIC PEPTIDE 2,275(H) <125 PG/ML 11/18/2024 8:59 AM YARD CLERK [facility] Comment: CUT POINTS ESTABLISHED BY [employer] ON NT PROBNP (ICON) STUDY (2006). AGE INDEPENDENT: <300 PG/ML HAS A 99% NEGATIVE PREDICTIVE VALUE FOR EXCLUDING ACUTE CHF <50 YEARS: >450 PG/ML IS CONSISTENT WITH ACUTE CHF 50-75 YEARS: >900 PG/ML IS CONSISTENT WITH ACUTE CHF >75 YEARS: >1800 PG/ML IS CONSISTENT WITH ACUTE CHF IN PATIENTS WITH RENAL INSUFFICIENCY (GFR <60), >1200 PG/ML YIELDS A DIAGNOSTIC SENSITIVITY AND SPECIFICITY OF 89% AND 72% FOR ACUTE CHF. 11/18/2024 8:20 AM YARD CLERK us Tayla Garcia MD LABORATORY Final Resu lt Performing Organization Address [facility]/ZIP Co de Phone Number [facility] [address] [place] [address], [place] [phone] * (ABNORMAL) COMPREHENSIVE METABOLIC PANEL (11/18/2024 8:20 AM YARD CLERK) GLUCOSE 99 70 - 99 MG/DL 11/18/2024 8:59 AM [facility] BUN 34(H) 7 - 18 MG/DL 11/18/2024 8:59 AM [facility] CREATININE S/P/B 1.61(H) 0.55 - 1.02 MG/DL 11/18/2024 8:59 AM [facility] SODIUM S/P/B 145 136 - 145 MMOL/L 11/18/2024 8:59 AM [facility] POTASSIUM S/P/B 5.9(H) 3.5 - 5.1 MMOL/L 11/18/2024 8:59 AM [facility] CHLORIDE S/P/B 111(H) 100 - 108 MMOL/L 11/18/2024 8:59 AM [facility] CO2 26.5 21 - 32 MMOL/L 11/18/2024 8:59 AM [facility] CALCIUM S/P/B 9.4 8.5 - 10.1 MG/DL 11/18/2024 8:59 AM [facility] BILIRUBIN TOTAL S/P/B 1.0 0.2 - 1.2 MG/DL 11/18/2024 8:59 AM [facility] TOTAL PROTEIN S/P/B 7.2 6.4 - 8.2 G/DL 11/18/2024 8:59 AM [facility] ALBUMIN S/P/B 3.8 3.4 - 5.0 G/DL 11/18/2024 8:59 AM [facility] AST 26 15 - 37 U/L 11/18/2024 8:59 AM [facility] ALT 26 14 - 55 U/L 11/18/2024 8:59 AM [facility] ALKALINE PHOSPHATASE S/P/B 89 50 - 136 U/L 11/18/2024 8:59 AM [facility] ANION GAP 7.5 5 - 15 MMOL/L 11/18/2024 8:59 AM [facility] BUN CREATININE RATIO 21.1 6 - 26 11/18/2024 8:59 AM [facility] A/G RATIO 1.1 1.0 - 2.0 RATIO 11/18/2024 8:59 AM [facility] GFR ESTIMATE 35(L) >90 ML/MIN/1.7 3 M2 11/18/2024 8:59 AM YARD CLERK [facility] Comment: NOTE: eGFR is not calculated for patients <18 years of age. This is an estimated GFR calculation using the new CKD EPI creatinine equation without race and so does not require a correction factor for race. This estimated GFR should not be used for calculating drug doses. 11/18/2024 8:20 AM YARD CLERK us Tayla Garcia MD LABORATORY Final Resu lt Performing Organization Address [facility] de Phone Number [facility] [address] [place] [address], [place] [phone] * TROPONIN, QUANT (11/18/2024 8:20 AM YARD CLERK) TROPONIN I HIGH SENSITIVITY 8 0 - 50 ng/L 11/18/2024 9:04 AM YARD CLERK [facility] Comment: HIGH DOSES OF BIOTIN, TROPONIN-SPECIFIC AUTOANTIBODIES, AND ANTIBODY THERAPY CONTAINING HAMA MAY INTERFERE WITH THIS TEST RESULT. CORRELATION TO CLINICAL HISTORY AND PRESENTATION RECOMMENDED. 11/18/2024 8:20 AM YARD CLERK us Tayla Garcia MD LABORATORY Final Resu lt Performing Organization Address [facility] de Phone Number [facility] [address] [place] [address], [place] [phone] * (ABNORMAL) MAGNESIUM (11/18/2024 8:20 AM YARD CLERK) MAGNESIUM 1.7(L) 1.8 - 2.4 MG/DL 11/18/2024 8:59 AM YARD CLERK [facility] 11/18/2024 8:20 AM YARD CLERK us Tayla Garcia MD LABORATORY Final Resu lt [facility] [address] [place] [address], [place] [phone] * DIABETIC RETINOPATHY EXAM (NEGATIVE)(SCAN) (04/12/2021) us Documents Scanned SCANNING Final Result [facility] ONBASE * HEMOGLOBIN, GLYCOSYLATED (05/24/2020) HGB A1C 6.9 % [id number]), [place] 05/24/2020 Jean Mark MD LABORATORY Final Resul t Performing Organization Address [facility]/ZIP Co de Phone Number [id number]), [place] [address] [place] [address], [place] [phone] * MG SCREENING W REANNA MICHEAL DIGI (04/13/2020 9:38 AM CDT) Anatomical Region Laterality Modality Breast Bilateral Mammography 04/13/2020 10:5 2 AM CDT Impressions 04/13/2020 10:54 AM CDT IMPRESSION: 1. No mammographic evidence of malignancy. 2. BI-RADS Category 1 - negative. Annual screening mammography recommended [facility] BI-RADS Categories: Category 0 - needs additional imaging evaluation. Category 1 - negative. Category 2 - benign findings. Category 3 - probably benign findings, but short interval follow-up is recommended. Category 4 - suspicious abnormality and biopsy should be considered though the lesion may well be benign. Category 5 - highly suggestive of malignancy and appropriate action should be taken. A) A negative report should not delay a biopsy if a dominant or clinically suspicious mass is present. B) Adenosis and dense breasts may obscure an underlying neoplasm. C) Study interpreted with computer aided detection. Interpreted By: Zach Reynoso, 04/13/2020 10:52 AM Narrative 04/13/2020 10:54 AM CDT IMAGING STUDIES: Bilateral screening mammograms with computer-aided detection with 2-D and 3-D imaging. Tomosynthesis. DATE: 04/13/2020 8:51 AM HISTORY: screening . No current complaints. Routine exam. COMPARISON: 04/08/2018. 04/12/2019. TISSUE TYPE: Category A - The breasts are almost entirely fatty. FINDINGS: 1. Bilateral screening mammograms with computer detection with 2-D and 3-D imaging. Tomosynthesis. Fatty replaced fibroglandular tissue pattern is present. Benign calcifications 2. No malignant microcalfcifications, new dominant masses, or architectural distortion. 3. No skin thickening or nipple retraction. Axillary regions are within normal limits. us Jean Mark MD MAMMO Final Resul t from Last 3 Months or Most Recently Relevant to Health Maintenance Insurance MEDICAID MEDICARE Advance Directives Documents on File Type Date Recorded Patient Front Desk Manager Expl anation Advance Directives and Living Will 11/29/2024 9:26 AM 12/23/2013 POA FOR HEALTH CARE Power of Licensed Physical Therapist 02/07/2023 [facility] * Full Code (Latest Code Status on File) Date Activated Date Inactivated Comments 11/18/2024 7:42 PM 11/27/2024 4:16 PM Care Teams Management Sme Relationship Specialty Start Date End Date Temi Lomeli DO [address] [facility] [address] [place] [address] PCP - General INTERNAL MEDICINE 11/18/24
--- OUTSIDE RECORDS SUMMARY | 2024-12-12 17:30 | XMS_ITS | Clinical Summary ---
Author Organization Unknown Care Team Providers Care Skin [facility] Bonder Name Role Phone TEMI SKINNER DO Unavailable Unavailable CAIO SILVA, MIKEY Unavailable Unavailable Payers Payer Name Policy Type Policy Number Effective Date Expira tion Date MEDICARE.[facility] [id number] Problems Condition Name Condition Details Condition Category [...] PHYSICIANS 1 RN TO OBSERVE AND ASSESS, NURSERY SUPERVISOR/DRY CHAIN OFFBEARER TO OBSERVE FOR RISK FOR FALLS AND INSTRUCT IN FALL PREVENTION, HOME SAFETY, MEDICATION MANAGEMENT, INFECTION PREVENTION, AND NUTRITION MANAGEMENT. RN/NURSERY SUPERVISOR/DRY CHAIN OFFBEARER NURSE MAY PERFORM O2 SATURATION LEVEL ON ADMISSION AND PRN FOR 1 FOR RN TO ASSESS/NURSERY SUPERVISOR TO OBSERVE PATIENT, WITH NOTIFICATION TO THE PHYSICIAN IF SATURATION IS 90% IN THE ABSENCE OF MORE SPECIFIC PARAMETERS FROM THE PHYSICIAN. AGENCY MAY PERFORM A RESUMPTION OF CARE VISIT FOLLOWING ANY HOSPITAL ADMISSION. RN/NURSERY SUPERVISOR/DRY CHAIN OFFBEARER TO MONITOR CO-MORBID CONDITIONS LISTED ON THE PLAN OF CARE AND ANY NEW CONDITIONS THAT PRESENT THEMSELVES DURING THIS EPISODE TO IDENTIFY CHANGES AND INTERVENE TO MINIMIZE COMPLICATIONS. [code = RN TO OBSERVE, ASSESS, EVALUATE, AND DEVELOP AN INDIVIDUALIZED PLAN OF CARE. AGENCY MAY ACCEPT ORDERS FROM CONSULTING PHYSICIANS 1 RN TO OBSERVE AND ASSESS, NURSERY SUPERVISOR/DRY CHAIN OFFBEARER TO OBSERVE FOR RISK FOR FALLS AND INSTRUCT IN FALL PREVENTION, HOME SAFETY, MEDICATION MANAGEMENT, INFECTION PREVENTION, AND NUTRITION MANAGEMENT. RN/NURSERY SUPERVISOR/DRY CHAIN OFFBEARER NURSE MAY PERFORM O2 SATURATION LEVEL ON ADMISSION AND PRN FOR 1 FOR RN TO ASSESS/NURSERY SUPERVISOR TO OBSERVE PATIENT, WITH NOTIFICATION TO THE PHYSICIAN IF SATURATION IS 90% IN THE ABSENCE OF MORE SPECIFIC PARAMETERS FROM THE PHYSICIAN. AGENCY MAY PERFORM A RESUMPTION OF CARE VISIT FOLLOWING ANY HOSPITAL ADMISSION. RN/NURSERY SUPERVISOR/DRY CHAIN OFFBEARER TO MONITOR CO-MORBID CONDITIONS LISTED ON THE PLAN OF CARE AND ANY NEW CONDITIONS THAT PRESENT THEMSELVES DURING THIS EPISODE TO IDENTIFY CHANGES AND INTERVENE TO MINIMIZE COMPLICATIONS.] Future Scheduled Test MEDICATION MANAGEMENT; RN/NURSERY SUPERVISOR/DRY CHAIN OFFBEARER TO REVIEW MEDICATIONS FOR INTERACTIONS, EFFECTIVENESS OF DRUG THERAPY, AND SIGNS/SYMPTOMS OF ADVERSE REACTIONS. MAY INSTRUCT AND REINFORCE MEDICATION TEACHING RELATED TO THE USE OF MEDICATIONS, DOSAGE, FREQUENCY, PURPOSE, SIDE EFFECTS, AND TO REPORT COMPLICATIONS. [code = MEDICATION MANAGEMENT; RN/NURSERY SUPERVISOR/DRY CHAIN OFFBEARER TO REVIEW MEDICATIONS FOR INTERACTIONS, EFFECTIVENESS OF DRUG THERAPY, AND SIGNS/SYMPTOMS OF ADVERSE REACTIONS. MAY INSTRUCT AND REINFORCE MEDICATION TEACHING RELATED TO THE USE OF MEDICATIONS, DOSAGE, FREQUENCY, PURPOSE, SIDE EFFECTS, AND TO REPORT COMPLICATIONS.] Future Scheduled Test RISK FOR H OSPITALIZATION; RN TO ASSESS/TEACH, DRY CHAIN OFFBEARER/NURSERY SUPERVISOR TO OBSERVE/TEACH PATIENT/CAREGIVER ON RISK FOR HOSPITALIZATION/EMERGENCY ROOM VISITS, TEACH SIGNS AND SYMPTOMS THAT PUT PATIENT AT RISK, WHEN TO NOTIFY NURSE/PHYSICIAN OF COMPLICATIONS/DECLINE, AND WHEN TO CALL 911. [code = RISK FOR HOSPITALIZATION; RN TO ASSESS/TEACH, DRY CHAIN OFFBEARER/NURSERY SUPERVISOR TO OBSERVE/TEACH PATIENT/CAREGIVER ON RISK FOR HOSPITALIZATION/EMERGENCY ROOM VISITS, TEACH SIGNS AND SYMPTOMS THAT PUT PATIENT AT RISK, WHEN TO NOTIFY NURSE/PHYSICIAN OF COMPLICATIONS/DECLINE, AND WHEN TO CALL 911.] Future Scheduled Test CARDIOVASC ULAR SYSTEM; RN TO ASSESS/TEACH, NURSERY SUPERVISOR/DRY CHAIN OFFBEARER TO OBSERVE/TEACH RELATED TO ALTERED CARDIOVASCULAR STATUS TO MINIMIZE COMPLICATIONS AND REDUCE HOSPITALIZATION. [code = CARDIOVASCULAR SYSTEM; RN TO ASSESS/TEACH, NURSERY SUPERVISOR/DRY CHAIN OFFBEARER TO OBSERVE/TEACH RELATED TO ALTERED CARDIOVASCULAR STATUS TO MINIMIZE COMPLICATIONS AND REDUCE HOSPITALIZATION.] Future Scheduled Test HYPERTENSI ON MANAGEMENT; RN TO ASSESS AND TEACH, NURSERY SUPERVISOR/DRY CHAIN OFFBEARER TO OBSERVE AND TEACH WARNING SIGNS AND SYMPTOMS TO AVOID HOSPITALIZATION. [code = HYPERTENSION MANAGEMENT; RN TO ASSESS AND TEACH, NURSERY SUPERVISOR/DRY CHAIN OFFBEARER TO OBSERVE AND TEACH WARNING SIGNS AND SYMPTOMS TO AVOID HOSPITALIZATION.] Future Scheduled Test PACEMAKER MANAGEMENT; RN/NURSERY SUPERVISOR/DRY CHAIN OFFBEARER TO PROVIDE SKILLED TEACHING AND ASSIST WITH MANAGEMENT OF PACEMAKER. [code = PACEMAKER MANAGEMENT; RN/NURSERY SUPERVISOR/DRY CHAIN OFFBEARER TO PROVIDE SKILLED TEACHING AND ASSIST WITH MANAGEMENT OF PACEMAKER.] Future Scheduled Test RESPIRATOR Y SYSTEM MANAGEMENT; RN TO ASSESS AND TEACH, NURSERY SUPERVISOR/DRY CHAIN OFFBEARER TO OBSERVE AND TEACH RELATED TO ALTERED RESPIRATORY STATUS TO MINIMIZE COMPLICATIONS AND REDUCE HOSPITALIZATION. [code = RESPIRATORY SYSTEM MANAGEMENT; RN TO ASSESS AND TEACH, NURSERY SUPERVISOR/DRY CHAIN OFFBEARER TO OBSERVE AND TEACH RELATED TO ALTERED RESPIRATORY STATUS TO MINIMIZE COMPLICATIONS AND REDUCE HOSPITALIZATION.] Future Scheduled Test OXYGEN THE RAPY; RN/NURSERY SUPERVISOR/DRY CHAIN OFFBEARER TO INSTRUCT ON OXYGEN MANAGEMENT INCLUDING: ADMINISTRATION AT 2 L/MIN VIA NASAL CANNULA CONTINUOUS/PRN FOR DAY TIME HOURS SISTER TAKES OF CARE OF EQUIPMENT AND SAFETY. [code = OXYGEN THERAPY; RN/NURSERY SUPERVISOR/DRY CHAIN OFFBEARER TO INSTRUCT ON OXYGEN MANAGEMENT INCLUDING: ADMINISTRATION AT 2 L/MIN VIA NASAL CANNULA CONTINUOUS/PRN FOR DAY TIME HOURS SISTER TAKES OF CARE OF EQUIPMENT AND SAFETY.] Future Scheduled Test PAIN MANAG EMENT; RN TO ASSESS AND TEACH, DRY CHAIN OFFBEARER/NURSERY SUPERVISOR TO OBSERVE AND TEACH AND PROVIDE EDUCATION ON PAIN MANAGEMENT TECHNIQUES. [code = PAIN MANAGEMENT; RN TO ASSESS AND TEACH, DRY CHAIN OFFBEARER/NURSERY SUPERVISOR TO OBSERVE AND TEACH AND PROVIDE EDUCATION ON PAIN MANAGEMENT TECHNIQUES.] Future Scheduled Test DIABETES M ANAGEMENT; RN TO ASSESS AND TEACH, DRY CHAIN OFFBEARER/NURSERY SUPERVISOR TO OBSERVE AND TEACH INSTRUCTIONS OF DIABETIC CARE TO INCLUDE: DIET ADA SKIN CARE, SIGNS AND SYMPTOMS OF HYPO/HYPERGLYCEMIA, PROPER ADMINISTRATION OF DIABETIC MEDICATION. RN/DRY CHAIN OFFBEARER/NURSERY SUPERVISOR TO INSTRUCT ON DIABETIC FOOT CARE AND MONITOR FOR SKIN LESIONS ON LOWER EXTREMITIES. BLOOD GLUCOSE TESTING NOT CHECKED FREQ. RN TO ASSESS AND TEACH, DRY CHAIN OFFBEARER/NURSERY SUPERVISOR TO OBSERVE AND TEACH PATIENT/CAREGIVER ABILITY TO PERFORM AND RECORD BLOOD GLUCOSE TESTING ORDERED AND TO REPORT ABNORMAL FINDINGS TO PHYSICIAN. RN/DRY CHAIN OFFBEARER/NURSERY SUPERVISOR MAY PERFORM BLOOD GLUCOSE TEST NEEDED. RN/DRY CHAIN OFFBEARER/NURSERY SUPERVISOR TO REPORT TO PHYSICIAN BLOOD GLUCOSE READINGS GREATER THAN 300 OR LESS THAN 70RN/DRY CHAIN OFFBEARER/NURSERY SUPERVISOR TO INSTRUCT PATIENT ON IMPORTANCE OF HGBA1C MONITORING, KIDNEY FUNCTION TEST, EYE AND FOOT EXAMS. [code = DIABETES MANAGEMENT; RN TO ASSESS AND TEACH, DRY CHAIN OFFBEARER/NURSERY SUPERVISOR TO OBSERVE AND TEACH INSTRUCTIONS OF DIABETIC CARE TO INCLUDE: DIET ADA SKIN CARE, SIGNS AND SYMPTOMS OF HYPO/HYPERGLYCEMIA, PROPER ADMINISTRATION OF DIABETIC MEDICATION. RN/DRY CHAIN OFFBEARER/NURSERY SUPERVISOR TO INSTRUCT ON DIABETIC FOOT CARE AND MONITOR FOR SKIN LESIONS ON LOWER EXTREMITIES. BLOOD GLUCOSE TESTING NOT CHECKED FREQ. RN TO ASSESS AND TEACH, DRY CHAIN OFFBEARER/NURSERY SUPERVISOR TO OBSERVE AND TEACH PATIENT/CAREGIVER ABILITY TO PERFORM AND RECORD BLOOD GLUCOSE TESTING ORDERED AND TO REPORT ABNORMAL FINDINGS TO PHYSICIAN. RN/DRY CHAIN OFFBEARER/NURSERY SUPERVISOR MAY PERFORM BLOOD GLUCOSE TEST NEEDED. RN/DRY CHAIN OFFBEARER/NURSERY SUPERVISOR TO REPORT TO PHYSICIAN BLOOD GLUCOSE READINGS GREATER THAN 300 OR LESS THAN 70RN/DRY CHAIN OFFBEARER/NURSERY SUPERVISOR TO INSTRUCT PATIENT ON IMPORTANCE OF HGBA1C MONITORING, KIDNEY FUNCTION TEST, EYE AND FOOT EXAMS.] Future Scheduled Test GENITOURIN CHERLELE MANAGEMENT; RN TO ASSESS AND TEACH, NURSERY SUPERVISOR/DRY CHAIN OFFBEARER TO OBSERVE AND TEACH RELATED TO ALTERED GENITOURINARY STATUS TO MINIMIZE COMPLICATIONS AND REDUCE HOSPITALIZATION. [code = GENITOURINARY MANAGEMENT; RN TO ASSESS AND TEACH, NURSERY SUPERVISOR/DRY CHAIN OFFBEARER TO OBSERVE AND TEACH RELATED TO ALTERED GENITOURINARY STATUS TO MINIMIZE COMPLICATIONS AND REDUCE HOSPITALIZATION.] Future Scheduled Test URINARY IN CONTINENCE MANAGEMENT; RN TO ASSESS AND TEACH, NURSERY SUPERVISOR/LVNTO OBSERVE AND TEACH MANAGEMENT OF URINARY INCONTINENCE. TEACH/INSTRUCT ON PREVENTING INFECTION AND SKIN BREAKDOWN. RN/NURSERY SUPERVISOR/DRY CHAIN OFFBEARER MAY INSTRUCT IN BLADDER TRAINING PROGRAM INDICATED. [code = URINARY INCONTINENCE MANAGEMENT; RN TO ASSESS AND TEACH, NURSERY SUPERVISOR/LVNTO OBSERVE AND TEACH MANAGEMENT OF URINARY INCONTINENCE. TEACH/INSTRUCT ON PREVENTING INFECTION AND SKIN BREAKDOWN. RN/NURSERY SUPERVISOR/DRY CHAIN OFFBEARER MAY INSTRUCT IN BLADDER TRAINING PROGRAM INDICATED.] Future Scheduled Test URINARY MO LECULAR TESTING PROTOCOL UP TO 2 PRN RN/NURSERY SUPERVISOR/DRY CHAIN OFFBEARER VISITS MAY BE PERFORMED FOR S/S OF UTI. RN TO ASSESS, NURSERY SUPERVISOR/DRY CHAIN OFFBEARER TO OBSERVE INITIATION OF UTI PROTOCOL. RN/DRY CHAIN OFFBEARER/NURSERY SUPERVISOR TO INSTRUCT PATIENT AND/OR CAREGIVER ON S/S OF UTI TO REPORT TO RN/DRY CHAIN OFFBEARER/NURSERY SUPERVISOR IF NEW OR WORSENING SYMPTOMS. DRINK PLENTY OF WATER THROUGHOUT THE DAY TO MAINTAIN HYDRATION (UNLESS CONTRAINDICATED.) URINATE WHEN THE URGE IS FELT, DO NOT WAIT. WASH GENITALS DAILY. WIPE FROM FRONT TO BACK AFTER HAVING A BOWEL MOVEMENT. RN/DRY CHAIN OFFBEARER/NURSERY SUPERVISOR TO OBTAIN MOLECULAR URINE TESTING BY OPTION 1 OR OPTION 2 (OPTION 1) RN/DRY CHAIN OFFBEARER/NURSERY SUPERVISOR TO OBTAIN U/A WITH REFLEX TO UTI PANEL (MOLECULAR) VIA CLEAN CATCH URINE AND IF UNABLE TO OBTAIN MAY PERFORM AN IN AND OUT CATH. IF PATIENT HAS INDWELLING CATHETER MAY OBTAIN FROM SAMPLING PORT. (OPTION 2) RN/DRY CHAIN OFFBEARER/NURSERY SUPERVISOR TO OBTAIN UTI PANEL (MOLECULAR) VIA SWAB COLLECTION METHOD FROM ADULT BRIEF/DIAPER OR PAD IF PATIENT IS INCONTINENT. NOTIFY PROVIDER OF RESULTS AND OBTAIN FURTHER ORDERS. [code = URINARY MOLECULAR TESTING PROTOCOL UP TO 2 PRN RN/NURSERY SUPERVISOR/DRY CHAIN OFFBEARER VISITS MAY BE PERFORMED FOR S/S OF UTI. RN TO ASSESS, NURSERY SUPERVISOR/DRY CHAIN OFFBEARER TO OBSERVE INITIATION OF UTI PROTOCOL. RN/DRY CHAIN OFFBEARER/NURSERY SUPERVISOR TO INSTRUCT PATIENT AND/OR CAREGIVER ON S/S OF UTI TO REPORT TO RN/DRY CHAIN OFFBEARER/NURSERY SUPERVISOR IF NEW OR WORSENING SYMPTOMS. DRINK PLENTY OF WATER THROUGHOUT THE DAY TO MAINTAIN HYDRATION (UNLESS CONTRAINDICATED.) URINATE WHEN THE URGE IS FELT, DO NOT WAIT. WASH GENITALS DAILY. WIPE FROM FRONT TO BACK AFTER HAVING A BOWEL MOVEMENT. RN/DRY CHAIN OFFBEARER/NURSERY SUPERVISOR TO OBTAIN MOLECULAR URINE TESTING BY OPTION 1 OR OPTION 2 (OPTION 1) RN/DRY CHAIN OFFBEARER/NURSERY SUPERVISOR TO OBTAIN U/A WITH REFLEX TO UTI PANEL (MOLECULAR) VIA CLEAN CATCH URINE AND IF UNABLE TO OBTAIN MAY PERFORM AN IN AND OUT CATH. IF PATIENT HAS INDWELLING CATHETER MAY OBTAIN FROM SAMPLING PORT. (OPTION 2) RN/DRY CHAIN OFFBEARER/NURSERY SUPERVISOR TO OBTAIN UTI PANEL (MOLECULAR) VIA SWAB COLLECTION METHOD FROM ADULT BRIEF/DIAPER OR PAD IF PATIENT IS INCONTINENT. NOTIFY PROVIDER OF RESULTS AND OBTAIN FURTHER ORDERS.] Future Scheduled Test FALL REDUC TION MANAGEMENT; RN TO ASSESS AND OBSERVE, NURSERY SUPERVISOR/DRY CHAIN OFFBEARER TO OBSERVE FALL RISK FACTORS AND EDUCATE PATIENT/CAREGIVER ON STRATEGIES TO MINIMIZE THE RISK OF FALLING. [code = FALL REDUCTION MANAGEMENT; RN TO ASSESS AND OBSERVE, NURSERY SUPERVISOR/DRY CHAIN OFFBEARER TO OBSERVE FALL RISK FACTORS AND EDUCATE [...] Scheduled Test PRN VISITS ;2 NUMBER OF RN/NURSERY SUPERVISOR/DRY CHAIN OFFBEARER VISITS: 2 RN/NURSERY SUPERVISOR/DRY CHAIN OFFBEARER TO PERFORM: 2 FOR THE FOLLOWING REASONS: CARDIAC COMPLICATIONS [code = PRN VISITS;2 NUMBER OF RN/NURSERY SUPERVISOR/DRY CHAIN OFFBEARER VISITS: 2 RN/NURSERY SUPERVISOR/DRY CHAIN OFFBEARER TO PERFORM: 2 FOR THE FOLLOWING REASONS: CARDIAC COMPLICATIONS ] Future Scheduled Test ANEMIA MAN AGEMENT; RN TO ASSESS AND TEACH, DRY CHAIN OFFBEARER/NURSERY SUPERVISOR TO OBSERVE AND TEACH AND PROVIDE EDUCATION ON ANEMIA. [code = ANEMIA MANAGEMENT; RN TO ASSESS AND TEACH, DRY CHAIN OFFBEARER/NURSERY SUPERVISOR TO OBSERVE AND TEACH AND PROVIDE EDUCATION ON ANEMIA.] Future Scheduled Test AGENCY MAY PERFORM A RESUMPTION OF CARE VISIT FOLLOWING ANY HOSPITAL ADMISSION. OT TO EVALUATE, OBSERVE / ASSESS, AND MONITOR, MANAGEMENT RETAIL INTERN TO OBSERVE AND MONITOR, PROVIDE SKILLED THERAPEUTIC INTERVENTION, ACTIVITY, EDUCATION, AND TRAINING TO ADDRESS SAFETY AND INDEPENDENCE OF ADLS AND FUNCTIONAL TRANSFERS IN HOME ENVIRONMENT. ACTIVITIES OF DAILY LIVING (OT/MANAGEMENT RETAIL INTERN) BATH/SHOWER TRANSFER (OT/MANAGEMENT RETAIL INTERN) ITEM RETRIEVAL AND TRANSPORTATION (OT/MANAGEMENT RETAIL INTERN) VISUAL DYSFUNCTION (OT/MANAGEMENT RETAIL INTERN) POSTURAL CONTROL/BALANCE (OT/LAMAR) THERAPEUTIC EXERCISE (OT/MANAGEMENT RETAIL INTERN) OT / MANAGEMENT RETAIL INTERN TO EDUCATE ON PACEMAKER SELF-MANAGEMENT OT/MANAGEMENT RETAIL INTERN TO MONITOR AND EDUCATE ON OXYGEN SATURATION DURING ADLS/IADLS, NOTIFY PHYSICIAN AND/OR THE RN CLINICAL MANAGER HI FOR PHYSICIAN NOTIFICATION AND IF O2 SATS [...] ACTIVITIES OF DAILY LIVING (OT/LAMAR) BATH/SHOWER TRANSFER (OT/MANAGEMENT RETAIL INTERN) ITEM RETRIEVAL AND TRANSPORTATION (OT/MANAGEMENT RETAIL INTERN) VISUAL DYSFUNCTION (OT/MANAGEMENT RETAIL INTERN) POSTURAL CONTROL/BALANCE (OT/LAMAR) THERAPEUTIC EXERCISE (OT/MANAGEMENT RETAIL INTERN) OT / LAMAR TO EDUCATE ON PACEMAKER SELF-MANAGEMENT OT/LAMAR TO MONITOR AND EDUCATE ON OXYGEN SATURATION DURING ADLS/IADLS, NOTIFY PHYSICIAN AND/OR THE RN CLINICAL MANAGER HI FOR PHYSICIAN NOTIFICATION AND IF O2 SATS BELOW 90% AFTER 10 MIN OF REST. OT / LAMAR TO IDENTIFY FALL RISK FACTORS; EDUCATE THE PATIENT/CAREGIVER ON WAYS TO REDUCE FALL RISK FACTORS AND ESTABLISH HOME EXERCISE PROGRAM TO MINIMIZE FALL RISK. MAY TEACH THE PATIENT FLOOR RECOVERY WHEN CLINICALLY APPROPRIATE. OT/MANAGEMENT RETAIL INTERN TO EDUCATE ON HYPERTENSION SELF-MANAGEMENT] Future Scheduled Test AGENCY MAY PERFORM A RESUMPTION OF CARE VISIT FOLLOWING ANY HOSPITAL ADMISSION. PT TO EVALUATE, OBSERVE / ASSESS, AND MONITOR, AMERICAN INDIAN POLICY SPECIALIST TO OBSERVE AND MONITOR, PROVIDE SKILLED THERAPEUTIC INTERVENTION, ACTIVITY, EDUCATION, AND TRAINING TO ADDRESS; PT/AMERICAN INDIAN POLICY SPECIALIST TO PROVIDE GAIT TRAINING FOR IMPROVED MOBILITY AND /OR TO NORMALIZE GAIT PATTERN NEUROMUSCULAR RE-EDUCATION / BALANCE / POSTURAL CONTROL (PT) SIT TO/FROM STAND TRANSFERS (PT/AMERICAN INDIAN POLICY SPECIALIST) PT / AMERICAN INDIAN POLICY SPECIALIST TO MONITOR AND EDUCATE ON OXYGEN SATURATION DURING ADLS/IADLS, NOTIFY PHYSICIAN AND/OR THE RN CLINICAL MANAGER HI FOR PHYSICIAN NOTIFICATION AND IF O2 SATS BELOW PHYSICIAN ORDERED PARAMETERS AFTER 10 MIN OF REST PT / AMERICAN INDIAN POLICY SPECIALIST TO EDUCATE PATIENT / CAREGIVER ON OXYGEN MANAGEMENT; OXYGEN FLOW RATE 2L/MIN PER NASAL CANULA CONTINUOIYS PT / AMERICAN INDIAN POLICY SPECIALIST TO MONITOR FOR HYPO/HYPERGLYCEMIA AND CONDUCT ROUTINE FOOT INSPECTIONS. RECORD PATIENT REPORTED BLOOD SUGAR LEVELS AND NOTIFY PHYSICIAN AND/OR THE RN CLINICAL MANAGER HI FOR PHYSICIAN NOTIFICATION IF BLOOD SUGAR LEVELS ARE OUTSIDE ORDERED PARAMETERS. TEACH PATIENT/CAREGIVER ON DAILY FOOT INSPECTIONS PT/AMERICAN INDIAN POLICY SPECIALIST TO IDENTIFY FALL RISK FACTORS; EDUCATE THE PATIENT/CAREGIVER ON WAYS TO REDUCE FALL RISK FACTORS AND ESTABLISH HOME EXERCISE PROGRAM TO MINIMIZE FALL RISK. MAY TEACH THE PATIENT FLOOR RECOVERY WHEN CLINICALLY APPROPRIATE PT / AMERICAN INDIAN POLICY SPECIALIST TO EDUCATE ON DIABETES SELF- MANAGEMENT [code = AGENCY MAY PERFORM A RESUMPTION OF CARE VISIT FOLLOWING ANY HOSPITAL ADMISSION. PT TO EVALUATE, OBSERVE / ASSESS, AND MONITOR, AMERICAN INDIAN POLICY SPECIALIST TO OBSERVE AND MONITOR, PROVIDE SKILLED THERAPEUTIC INTERVENTION, ACTIVITY, EDUCATION, AND TRAINING TO ADDRESS; PT/AMERICAN INDIAN POLICY SPECIALIST TO PROVIDE GAIT TRAINING FOR IMPROVED MOBILITY AND /OR TO NORMALIZE GAIT PATTERN NEUROMUSCULAR RE-EDUCATION / BALANCE / POSTURAL CONTROL (PT) SIT TO/FROM STAND TRANSFERS (PT/AMERICAN INDIAN POLICY SPECIALIST) PT / AMERICAN INDIAN POLICY SPECIALIST TO MONITOR AND EDUCATE ON OXYGEN SATURATION DURING ADLS/IADLS, NOTIFY PHYSICIAN AND/OR THE RN CLINICAL MANAGER HI FOR PHYSICIAN NOTIFICATION AND IF O2 SATS BELOW PHYSICIAN ORDERED PARAMETERS AFTER 10 MIN OF REST PT / AMERICAN INDIAN POLICY SPECIALIST TO EDUCATE PATIENT / CAREGIVER ON OXYGEN MANAGEMENT; OXYGEN FLOW RATE 2L/MIN PER NASAL CANULA CONTINUOIYS PT / AMERICAN INDIAN POLICY SPECIALIST TO MONITOR FOR HYPO/HYPERGLYCEMIA AND CONDUCT ROUTINE FOOT INSPECTIONS. RECORD PATIENT REPORTED BLOOD SUGAR LEVELS AND NOTIFY PHYSICIAN AND/OR THE RN CLINICAL MANAGER HI FOR PHYSICIAN NOTIFICATION IF BLOOD SUGAR LEVELS ARE OUTSIDE ORDERED PARAMETERS. TEACH PATIENT/CAREGIVER ON DAILY FOOT INSPECTIONS PT/AMERICAN INDIAN POLICY SPECIALIST TO IDENTIFY FALL RISK FACTORS; EDUCATE THE PATIENT/CAREGIVER ON WAYS TO REDUCE FALL RISK FACTORS AND ESTABLISH HOME EXERCISE PROGRAM TO MINIMIZE FALL RISK. MAY TEACH THE PATIENT FLOOR RECOVERY WHEN CLINICALLY APPROPRIATE PT / AMERICAN INDIAN POLICY SPECIALIST TO EDUCATE ON DIABETES SELF- MANAGEMENT] Goal [...] End Date/Time Encounter Type Admission Type Attending [facility] Department Encounter ID Discharge Date Discharge Status Discharge Condition Discharge Reason Percent Goals Met 2024-12-08 00:00:00 2025-02-05 00:00:00 Outpatient NEW ADMISSION [facility] [id number] [id number]
--- OUTSIDE RECORDS SUMMARY | 2024-12-12 17:30 | XMS_ITS | Clinical Summary ---
Author Organization Unknown Care Team Providers Care Account Specialist Name Role Phone TEMI SKINNER DO Unavailable Unavailable CAIO SILVA, MIKEY Unavailable Unavailable Payers Payer Name Policy Type Policy Number Effective Date Expira tion Date MEDICARE.[facility] [id number] Problems Condition Name Condition Details Condition Category [...] PHYSICIANS 1 RN TO OBSERVE AND ASSESS, LOSS PREVENTION RESEARCH ENGINEER/BONUS CLERK TO OBSERVE FOR RISK FOR FALLS AND INSTRUCT IN FALL PREVENTION, HOME SAFETY, MEDICATION MANAGEMENT, INFECTION PREVENTION, AND NUTRITION MANAGEMENT. RN/LOSS PREVENTION RESEARCH ENGINEER/BONUS CLERK NURSE MAY PERFORM O2 SATURATION LEVEL ON ADMISSION AND PRN FOR 1 FOR RN TO ASSESS/LOSS PREVENTION RESEARCH ENGINEER TO OBSERVE PATIENT, WITH NOTIFICATION TO THE PHYSICIAN IF SATURATION IS 90% IN THE ABSENCE OF MORE SPECIFIC PARAMETERS FROM THE PHYSICIAN. AGENCY MAY PERFORM A RESUMPTION OF CARE VISIT FOLLOWING ANY HOSPITAL ADMISSION. RN/LOSS PREVENTION RESEARCH ENGINEER/BONUS CLERK TO MONITOR CO-MORBID CONDITIONS LISTED ON THE PLAN OF CARE AND ANY NEW CONDITIONS THAT PRESENT THEMSELVES DURING THIS EPISODE TO IDENTIFY CHANGES AND INTERVENE TO MINIMIZE COMPLICATIONS. [code = RN TO OBSERVE, ASSESS, EVALUATE, AND DEVELOP AN INDIVIDUALIZED PLAN OF CARE. AGENCY MAY ACCEPT ORDERS FROM CONSULTING PHYSICIANS 1 RN TO OBSERVE AND ASSESS, LOSS PREVENTION RESEARCH ENGINEER/BONUS CLERK TO OBSERVE FOR RISK FOR FALLS AND INSTRUCT IN FALL PREVENTION, HOME SAFETY, MEDICATION MANAGEMENT, INFECTION PREVENTION, AND NUTRITION MANAGEMENT. RN/LOSS PREVENTION RESEARCH ENGINEER/BONUS CLERK NURSE MAY PERFORM O2 SATURATION LEVEL ON ADMISSION AND PRN FOR 1 FOR RN TO ASSESS/LOSS PREVENTION RESEARCH ENGINEER TO OBSERVE PATIENT, WITH NOTIFICATION TO THE PHYSICIAN IF SATURATION IS 90% IN THE ABSENCE OF MORE SPECIFIC PARAMETERS FROM THE PHYSICIAN. AGENCY MAY PERFORM A RESUMPTION OF CARE VISIT FOLLOWING ANY HOSPITAL ADMISSION. RN/LOSS PREVENTION RESEARCH ENGINEER/BONUS CLERK TO MONITOR CO-MORBID CONDITIONS LISTED ON THE PLAN OF CARE AND ANY NEW CONDITIONS THAT PRESENT THEMSELVES DURING THIS EPISODE TO IDENTIFY CHANGES AND INTERVENE TO MINIMIZE COMPLICATIONS.] Future Scheduled Test MEDICATION MANAGEMENT; RN/LOSS PREVENTION RESEARCH ENGINEER/BONUS CLERK TO REVIEW MEDICATIONS FOR INTERACTIONS, EFFECTIVENESS OF DRUG THERAPY, AND SIGNS/SYMPTOMS OF ADVERSE REACTIONS. MAY INSTRUCT AND REINFORCE MEDICATION TEACHING RELATED TO THE USE OF MEDICATIONS, DOSAGE, FREQUENCY, PURPOSE, SIDE EFFECTS, AND TO REPORT COMPLICATIONS. [code = MEDICATION MANAGEMENT; RN/LOSS PREVENTION RESEARCH ENGINEER/BONUS CLERK TO REVIEW MEDICATIONS FOR INTERACTIONS, EFFECTIVENESS OF DRUG THERAPY, AND SIGNS/SYMPTOMS OF ADVERSE REACTIONS. MAY INSTRUCT AND REINFORCE MEDICATION TEACHING RELATED TO THE USE OF MEDICATIONS, DOSAGE, FREQUENCY, PURPOSE, SIDE EFFECTS, AND TO REPORT COMPLICATIONS.] Future Scheduled Test RISK FOR H OSPITALIZATION; RN TO ASSESS/TEACH, BONUS CLERK/LOSS PREVENTION RESEARCH ENGINEER TO OBSERVE/TEACH PATIENT/CAREGIVER ON RISK FOR HOSPITALIZATION/EMERGENCY ROOM VISITS, TEACH SIGNS AND SYMPTOMS THAT PUT PATIENT AT RISK, WHEN TO NOTIFY NURSE/PHYSICIAN OF COMPLICATIONS/DECLINE, AND WHEN TO CALL 911. [code = RISK FOR HOSPITALIZATION; RN TO ASSESS/TEACH, BONUS CLERK/LOSS PREVENTION RESEARCH ENGINEER TO OBSERVE/TEACH PATIENT/CAREGIVER ON RISK FOR HOSPITALIZATION/EMERGENCY ROOM VISITS, TEACH SIGNS AND SYMPTOMS THAT PUT PATIENT AT RISK, WHEN TO NOTIFY NURSE/PHYSICIAN OF COMPLICATIONS/DECLINE, AND WHEN TO CALL 911.] Future Scheduled Test CARDIOVASC ULAR SYSTEM; RN TO ASSESS/TEACH, LOSS PREVENTION RESEARCH ENGINEER/BONUS CLERK TO OBSERVE/TEACH RELATED TO ALTERED CARDIOVASCULAR STATUS TO MINIMIZE COMPLICATIONS AND REDUCE HOSPITALIZATION. [code = CARDIOVASCULAR SYSTEM; RN TO ASSESS/TEACH, LOSS PREVENTION RESEARCH ENGINEER/BONUS CLERK TO OBSERVE/TEACH RELATED TO ALTERED CARDIOVASCULAR STATUS TO MINIMIZE COMPLICATIONS AND REDUCE HOSPITALIZATION.] Future Scheduled Test HYPERTENSI ON MANAGEMENT; RN TO ASSESS AND TEACH, LOSS PREVENTION RESEARCH ENGINEER/BONUS CLERK TO OBSERVE AND TEACH WARNING SIGNS AND SYMPTOMS TO AVOID HOSPITALIZATION. [code = HYPERTENSION MANAGEMENT; RN TO ASSESS AND TEACH, LOSS PREVENTION RESEARCH ENGINEER/BONUS CLERK TO OBSERVE AND TEACH WARNING SIGNS AND SYMPTOMS TO AVOID HOSPITALIZATION.] Future Scheduled Test PACEMAKER MANAGEMENT; RN/LOSS PREVENTION RESEARCH ENGINEER/BONUS CLERK TO PROVIDE SKILLED TEACHING AND ASSIST WITH MANAGEMENT OF PACEMAKER. [code = PACEMAKER MANAGEMENT; RN/LOSS PREVENTION RESEARCH ENGINEER/BONUS CLERK TO PROVIDE SKILLED TEACHING AND ASSIST WITH MANAGEMENT OF PACEMAKER.] Future Scheduled Test RESPIRATOR Y SYSTEM MANAGEMENT; RN TO ASSESS AND TEACH, LOSS PREVENTION RESEARCH ENGINEER/BONUS CLERK TO OBSERVE AND TEACH RELATED TO ALTERED RESPIRATORY STATUS TO MINIMIZE COMPLICATIONS AND REDUCE HOSPITALIZATION. [code = RESPIRATORY SYSTEM MANAGEMENT; RN TO ASSESS AND TEACH, LOSS PREVENTION RESEARCH ENGINEER/BONUS CLERK TO OBSERVE AND TEACH RELATED TO ALTERED RESPIRATORY STATUS TO MINIMIZE COMPLICATIONS AND REDUCE HOSPITALIZATION.] Future Scheduled Test OXYGEN THE RAPY; RN/LOSS PREVENTION RESEARCH ENGINEER/BONUS CLERK TO INSTRUCT ON OXYGEN MANAGEMENT INCLUDING: ADMINISTRATION AT 2 L/MIN VIA NASAL CANNULA CONTINUOUS/PRN FOR DAY TIME HOURS SISTER TAKES OF CARE OF EQUIPMENT AND SAFETY. [code = OXYGEN THERAPY; RN/LOSS PREVENTION RESEARCH ENGINEER/BONUS CLERK TO INSTRUCT ON OXYGEN MANAGEMENT INCLUDING: ADMINISTRATION AT 2 L/MIN VIA NASAL CANNULA CONTINUOUS/PRN FOR DAY TIME HOURS SISTER TAKES OF CARE OF EQUIPMENT AND SAFETY.] Future Scheduled Test PAIN MANAG EMENT; RN TO ASSESS AND TEACH, BONUS CLERK/LOSS PREVENTION RESEARCH ENGINEER TO OBSERVE AND TEACH AND PROVIDE EDUCATION ON PAIN MANAGEMENT TECHNIQUES. [code = PAIN MANAGEMENT; RN TO ASSESS AND TEACH, BONUS CLERK/LOSS PREVENTION RESEARCH ENGINEER TO OBSERVE AND TEACH AND PROVIDE EDUCATION ON PAIN MANAGEMENT TECHNIQUES.] Future Scheduled Test DIABETES M ANAGEMENT; RN TO ASSESS AND TEACH, BONUS CLERK/LOSS PREVENTION RESEARCH ENGINEER TO OBSERVE AND TEACH INSTRUCTIONS OF DIABETIC CARE TO INCLUDE: DIET ADA SKIN CARE, SIGNS AND SYMPTOMS OF HYPO/HYPERGLYCEMIA, PROPER ADMINISTRATION OF DIABETIC MEDICATION. RN/BONUS CLERK/LOSS PREVENTION RESEARCH ENGINEER TO INSTRUCT ON DIABETIC FOOT CARE AND MONITOR FOR SKIN LESIONS ON LOWER EXTREMITIES. BLOOD GLUCOSE TESTING NOT CHECKED FREQ. RN TO ASSESS AND TEACH, BONUS CLERK/LOSS PREVENTION RESEARCH ENGINEER TO OBSERVE AND TEACH PATIENT/CAREGIVER ABILITY TO PERFORM AND RECORD BLOOD GLUCOSE TESTING ORDERED AND TO REPORT ABNORMAL FINDINGS TO PHYSICIAN. RN/BONUS CLERK/LOSS PREVENTION RESEARCH ENGINEER MAY PERFORM BLOOD GLUCOSE TEST NEEDED. RN/BONUS CLERK/LOSS PREVENTION RESEARCH ENGINEER TO REPORT TO PHYSICIAN BLOOD GLUCOSE READINGS GREATER THAN 300 OR LESS THAN 70RN/BONUS CLERK/LOSS PREVENTION RESEARCH ENGINEER TO INSTRUCT PATIENT ON IMPORTANCE OF HGBA1C MONITORING, KIDNEY FUNCTION TEST, EYE AND FOOT EXAMS. [code = DIABETES MANAGEMENT; RN TO ASSESS AND TEACH, BONUS CLERK/LOSS PREVENTION RESEARCH ENGINEER TO OBSERVE AND TEACH INSTRUCTIONS OF DIABETIC CARE TO INCLUDE: DIET ADA SKIN CARE, SIGNS AND SYMPTOMS OF HYPO/HYPERGLYCEMIA, PROPER ADMINISTRATION OF DIABETIC MEDICATION. RN/BONUS CLERK/LOSS PREVENTION RESEARCH ENGINEER TO INSTRUCT ON DIABETIC FOOT CARE AND MONITOR FOR SKIN LESIONS ON LOWER EXTREMITIES. BLOOD GLUCOSE TESTING NOT CHECKED FREQ. RN TO ASSESS AND TEACH, BONUS CLERK/LOSS PREVENTION RESEARCH ENGINEER TO OBSERVE AND TEACH PATIENT/CAREGIVER ABILITY TO PERFORM AND RECORD BLOOD GLUCOSE TESTING ORDERED AND TO REPORT ABNORMAL FINDINGS TO PHYSICIAN. RN/BONUS CLERK/LOSS PREVENTION RESEARCH ENGINEER MAY PERFORM BLOOD GLUCOSE TEST NEEDED. RN/BONUS CLERK/LOSS PREVENTION RESEARCH ENGINEER TO REPORT TO PHYSICIAN BLOOD GLUCOSE READINGS GREATER THAN 300 OR LESS THAN 70RN/BONUS CLERK/LOSS PREVENTION RESEARCH ENGINEER TO INSTRUCT PATIENT ON IMPORTANCE OF HGBA1C MONITORING, KIDNEY FUNCTION TEST, EYE AND FOOT EXAMS.] Future Scheduled Test GENITOURIN CHERELLE MANAGEMENT; RN TO ASSESS AND TEACH, LOSS PREVENTION RESEARCH ENGINEER/BONUS CLERK TO OBSERVE AND TEACH RELATED TO ALTERED GENITOURINARY STATUS TO MINIMIZE COMPLICATIONS AND REDUCE HOSPITALIZATION. [code = GENITOURINARY MANAGEMENT; RN TO ASSESS AND TEACH, LOSS PREVENTION RESEARCH ENGINEER/BONUS CLERK TO OBSERVE AND TEACH RELATED TO ALTERED GENITOURINARY STATUS TO MINIMIZE COMPLICATIONS AND REDUCE HOSPITALIZATION.] Future Scheduled Test URINARY IN CONTINENCE MANAGEMENT; RN TO ASSESS AND TEACH, LOSS PREVENTION RESEARCH ENGINEER/LVNTO OBSERVE AND TEACH MANAGEMENT OF URINARY INCONTINENCE. TEACH/INSTRUCT ON PREVENTING INFECTION AND SKIN BREAKDOWN. RN/LOSS PREVENTION RESEARCH ENGINEER/BONUS CLERK MAY INSTRUCT IN BLADDER TRAINING PROGRAM INDICATED. [code = URINARY INCONTINENCE MANAGEMENT; RN TO ASSESS AND TEACH, LOSS PREVENTION RESEARCH ENGINEER/LVNTO OBSERVE AND TEACH MANAGEMENT OF URINARY INCONTINENCE. TEACH/INSTRUCT ON PREVENTING INFECTION AND SKIN BREAKDOWN. RN/LOSS PREVENTION RESEARCH ENGINEER/BONUS CLERK MAY INSTRUCT IN BLADDER TRAINING PROGRAM INDICATED.] Future Scheduled Test URINARY MO LECULAR TESTING PROTOCOL UP TO 2 PRN RN/LOSS PREVENTION RESEARCH ENGINEER/BONUS CLERK VISITS MAY BE PERFORMED FOR S/S OF UTI. RN TO ASSESS, LOSS PREVENTION RESEARCH ENGINEER/BONUS CLERK TO OBSERVE INITIATION OF UTI PROTOCOL. RN/BONUS CLERK/LOSS PREVENTION RESEARCH ENGINEER TO INSTRUCT PATIENT AND/OR CAREGIVER ON S/S OF UTI TO REPORT TO RN/BONUS CLERK/LOSS PREVENTION RESEARCH ENGINEER IF NEW OR WORSENING SYMPTOMS. DRINK PLENTY OF WATER THROUGHOUT THE DAY TO MAINTAIN HYDRATION (UNLESS CONTRAINDICATED.) URINATE WHEN THE URGE IS FELT, DO NOT WAIT. WASH GENITALS DAILY. WIPE FROM FRONT TO BACK AFTER HAVING A BOWEL MOVEMENT. RN/BONUS CLERK/LOSS PREVENTION RESEARCH ENGINEER TO OBTAIN MOLECULAR URINE TESTING BY OPTION 1 OR OPTION 2 (OPTION 1) RN/BONUS CLERK/LOSS PREVENTION RESEARCH ENGINEER TO OBTAIN U/A WITH REFLEX TO UTI PANEL (MOLECULAR) VIA CLEAN CATCH URINE AND IF UNABLE TO OBTAIN MAY PERFORM AN IN AND OUT CATH. IF PATIENT HAS INDWELLING CATHETER MAY OBTAIN FROM SAMPLING PORT. (OPTION 2) RN/BONUS CLERK/LOSS PREVENTION RESEARCH ENGINEER TO OBTAIN UTI PANEL (MOLECULAR) VIA SWAB COLLECTION METHOD FROM ADULT BRIEF/DIAPER OR PAD IF PATIENT IS INCONTINENT. NOTIFY PROVIDER OF RESULTS AND OBTAIN FURTHER ORDERS. [code = URINARY MOLECULAR TESTING PROTOCOL UP TO 2 PRN RN/LOSS PREVENTION RESEARCH ENGINEER/BONUS CLERK VISITS MAY BE PERFORMED FOR S/S OF UTI. RN TO ASSESS, LOSS PREVENTION RESEARCH ENGINEER/BONUS CLERK TO OBSERVE INITIATION OF UTI PROTOCOL. RN/BONUS CLERK/LOSS PREVENTION RESEARCH ENGINEER TO INSTRUCT PATIENT AND/OR CAREGIVER ON S/S OF UTI TO REPORT TO RN/BONUS CLERK/LOSS PREVENTION RESEARCH ENGINEER IF NEW OR WORSENING SYMPTOMS. DRINK PLENTY OF WATER THROUGHOUT THE DAY TO MAINTAIN HYDRATION (UNLESS CONTRAINDICATED.) URINATE WHEN THE URGE IS FELT, DO NOT WAIT. WASH GENITALS DAILY. WIPE FROM FRONT TO BACK AFTER HAVING A BOWEL MOVEMENT. RN/BONUS CLERK/LOSS PREVENTION RESEARCH ENGINEER TO OBTAIN MOLECULAR URINE TESTING BY OPTION 1 OR OPTION 2 (OPTION 1) RN/BONUS CLERK/LOSS PREVENTION RESEARCH ENGINEER TO OBTAIN U/A WITH REFLEX TO UTI PANEL (MOLECULAR) VIA CLEAN CATCH URINE AND IF UNABLE TO OBTAIN MAY PERFORM AN IN AND OUT CATH. IF PATIENT HAS INDWELLING CATHETER MAY OBTAIN FROM SAMPLING PORT. (OPTION 2) RN/BONUS CLERK/LOSS PREVENTION RESEARCH ENGINEER TO OBTAIN UTI PANEL (MOLECULAR) VIA SWAB COLLECTION METHOD FROM ADULT BRIEF/DIAPER OR PAD IF PATIENT IS INCONTINENT. NOTIFY PROVIDER OF RESULTS AND OBTAIN FURTHER ORDERS.] Future Scheduled Test FALL REDUC TION MANAGEMENT; RN TO ASSESS AND OBSERVE, LOSS PREVENTION RESEARCH ENGINEER/BONUS CLERK TO OBSERVE FALL RISK FACTORS AND EDUCATE PATIENT/CAREGIVER ON STRATEGIES TO MINIMIZE THE RISK OF FALLING. [code = FALL REDUCTION MANAGEMENT; RN TO ASSESS AND OBSERVE, LOSS PREVENTION RESEARCH ENGINEER/BONUS CLERK TO OBSERVE FALL RISK FACTORS AND EDUCATE [...] Scheduled Test PRN VISITS ;2 NUMBER OF RN/LOSS PREVENTION RESEARCH ENGINEER/BONUS CLERK VISITS: 2 RN/LOSS PREVENTION RESEARCH ENGINEER/BONUS CLERK TO PERFORM: 2 FOR THE FOLLOWING REASONS: CARDIAC COMPLICATIONS [code = PRN VISITS;2 NUMBER OF RN/LOSS PREVENTION RESEARCH ENGINEER/BONUS CLERK VISITS: 2 RN/LOSS PREVENTION RESEARCH ENGINEER/BONUS CLERK TO PERFORM: 2 FOR THE FOLLOWING REASONS: CARDIAC COMPLICATIONS ] Future Scheduled Test ANEMIA MAN AGEMENT; RN TO ASSESS AND TEACH, BONUS CLERK/LOSS PREVENTION RESEARCH ENGINEER TO OBSERVE AND TEACH AND PROVIDE EDUCATION ON ANEMIA. [code = ANEMIA MANAGEMENT; RN TO ASSESS AND TEACH, BONUS CLERK/LOSS PREVENTION RESEARCH ENGINEER TO OBSERVE AND TEACH AND PROVIDE EDUCATION ON ANEMIA.] Future Scheduled Test AGENCY MAY PERFORM A RESUMPTION OF CARE VISIT FOLLOWING ANY HOSPITAL ADMISSION. OT TO EVALUATE, OBSERVE / ASSESS, AND MONITOR, MANAGEMENT AND BUDGET ANALYST TO OBSERVE AND MONITOR, PROVIDE SKILLED THERAPEUTIC INTERVENTION, ACTIVITY, EDUCATION, AND TRAINING TO ADDRESS SAFETY AND INDEPENDENCE OF ADLS AND FUNCTIONAL TRANSFERS IN HOME ENVIRONMENT. ACTIVITIES OF DAILY LIVING (OT/MANAGEMENT AND BUDGET ANALYST) BATH/SHOWER TRANSFER (OT/MANAGEMENT AND BUDGET ANALYST) ITEM RETRIEVAL AND TRANSPORTATION (OT/MANAGEMENT AND BUDGET ANALYST) VISUAL DYSFUNCTION (OT/MANAGEMENT AND BUDGET ANALYST) POSTURAL CONTROL/BALANCE (OT/LAMAR) THERAPEUTIC EXERCISE (OT/MANAGEMENT AND BUDGET ANALYST) OT / MANAGEMENT AND BUDGET ANALYST TO EDUCATE ON PACEMAKER SELF-MANAGEMENT OT/MANAGEMENT AND BUDGET ANALYST TO MONITOR AND EDUCATE ON OXYGEN SATURATION DURING ADLS/IADLS, NOTIFY PHYSICIAN AND/OR THE RN CLINICAL CO FOUNDER AND CHIEF STRATEGY OFFICER FOR PHYSICIAN NOTIFICATION AND IF O2 SATS [...] OF DAILY LIVING (OT/LAMAR) BATH/SHOWER TRANSFER (OT/MANAGEMENT AND BUDGET ANALYST) ITEM RETRIEVAL AND TRANSPORTATION (OT/MANAGEMENT AND BUDGET ANALYST) VISUAL DYSFUNCTION (OT/MANAGEMENT AND BUDGET ANALYST) POSTURAL CONTROL/BALANCE (OT/LAMAR) THERAPEUTIC EXERCISE (OT/MANAGEMENT AND BUDGET ANALYST) OT / LAMAR TO EDUCATE ON PACEMAKER SELF-MANAGEMENT OT/LAMAR TO MONITOR AND EDUCATE ON OXYGEN SATURATION DURING ADLS/IADLS, NOTIFY PHYSICIAN AND/OR THE RN CLINICAL CO FOUNDER AND CHIEF STRATEGY OFFICER FOR PHYSICIAN NOTIFICATION AND IF O2 SATS BELOW 90% AFTER 10 MIN OF REST. OT / LAMAR TO IDENTIFY FALL RISK FACTORS; EDUCATE THE PATIENT/CAREGIVER ON WAYS TO REDUCE FALL RISK FACTORS AND ESTABLISH HOME EXERCISE PROGRAM TO MINIMIZE FALL RISK. MAY TEACH THE PATIENT FLOOR RECOVERY WHEN CLINICALLY APPROPRIATE. OT/MANAGEMENT AND BUDGET ANALYST TO EDUCATE ON HYPERTENSION SELF-MANAGEMENT] Future Scheduled Test AGENCY MAY PERFORM A RESUMPTION OF CARE VISIT FOLLOWING ANY HOSPITAL ADMISSION. PT TO EVALUATE, OBSERVE / ASSESS, AND MONITOR, PROPERTY MANAGEMENT COORDINATOR TO OBSERVE AND MONITOR, PROVIDE SKILLED THERAPEUTIC INTERVENTION, ACTIVITY, EDUCATION, AND TRAINING TO ADDRESS; PT/PROPERTY MANAGEMENT COORDINATOR TO PROVIDE GAIT TRAINING FOR IMPROVED MOBILITY AND /OR TO NORMALIZE GAIT PATTERN NEUROMUSCULAR RE-EDUCATION / BALANCE / POSTURAL CONTROL (PT) SIT TO/FROM STAND TRANSFERS (PT/PROPERTY MANAGEMENT COORDINATOR) PT / PROPERTY MANAGEMENT COORDINATOR TO MONITOR AND EDUCATE ON OXYGEN SATURATION DURING ADLS/IADLS, NOTIFY PHYSICIAN AND/OR THE RN CLINICAL CO FOUNDER AND CHIEF STRATEGY OFFICER FOR PHYSICIAN NOTIFICATION AND IF O2 SATS BELOW PHYSICIAN ORDERED PARAMETERS AFTER 10 MIN OF REST PT / PROPERTY MANAGEMENT COORDINATOR TO EDUCATE PATIENT / CAREGIVER ON OXYGEN MANAGEMENT; OXYGEN FLOW RATE 2L/MIN PER NASAL CANULA CONTINUOIYS PT / PROPERTY MANAGEMENT COORDINATOR TO MONITOR FOR HYPO/HYPERGLYCEMIA AND CONDUCT ROUTINE FOOT INSPECTIONS. RECORD PATIENT REPORTED BLOOD SUGAR LEVELS AND NOTIFY PHYSICIAN AND/OR THE RN CLINICAL CO FOUNDER AND CHIEF STRATEGY OFFICER FOR PHYSICIAN NOTIFICATION IF BLOOD SUGAR LEVELS ARE OUTSIDE ORDERED PARAMETERS. TEACH PATIENT/CAREGIVER ON DAILY FOOT INSPECTIONS PT/PROPERTY MANAGEMENT COORDINATOR TO IDENTIFY FALL RISK FACTORS; EDUCATE THE PATIENT/CAREGIVER ON WAYS TO REDUCE FALL RISK FACTORS AND ESTABLISH HOME EXERCISE PROGRAM TO MINIMIZE FALL RISK. MAY TEACH THE PATIENT FLOOR RECOVERY WHEN CLINICALLY APPROPRIATE PT / PROPERTY MANAGEMENT COORDINATOR TO EDUCATE ON DIABETES SELF- MANAGEMENT [code = AGENCY MAY PERFORM A RESUMPTION OF CARE VISIT FOLLOWING ANY HOSPITAL ADMISSION. PT TO EVALUATE, OBSERVE / ASSESS, AND MONITOR, PROPERTY MANAGEMENT COORDINATOR TO OBSERVE AND MONITOR, PROVIDE SKILLED THERAPEUTIC INTERVENTION, ACTIVITY, EDUCATION, AND TRAINING TO ADDRESS; PT/PROPERTY MANAGEMENT COORDINATOR TO PROVIDE GAIT TRAINING FOR IMPROVED MOBILITY AND /OR TO NORMALIZE GAIT PATTERN NEUROMUSCULAR RE-EDUCATION / BALANCE / POSTURAL CONTROL (PT) SIT TO/FROM STAND TRANSFERS (PT/PROPERTY MANAGEMENT COORDINATOR) PT / PROPERTY MANAGEMENT COORDINATOR TO MONITOR AND EDUCATE ON OXYGEN SATURATION DURING ADLS/IADLS, NOTIFY PHYSICIAN AND/OR THE RN CLINICAL CO FOUNDER AND CHIEF STRATEGY OFFICER FOR PHYSICIAN NOTIFICATION AND IF O2 SATS BELOW PHYSICIAN ORDERED PARAMETERS AFTER 10 MIN OF REST PT / PROPERTY MANAGEMENT COORDINATOR TO EDUCATE PATIENT / CAREGIVER ON OXYGEN MANAGEMENT; OXYGEN FLOW RATE 2L/MIN PER NASAL CANULA CONTINUOIYS PT / PROPERTY MANAGEMENT COORDINATOR TO MONITOR FOR HYPO/HYPERGLYCEMIA AND CONDUCT ROUTINE FOOT INSPECTIONS. RECORD PATIENT REPORTED BLOOD SUGAR LEVELS AND NOTIFY PHYSICIAN AND/OR THE RN CLINICAL CO FOUNDER AND CHIEF STRATEGY OFFICER FOR PHYSICIAN NOTIFICATION IF BLOOD SUGAR LEVELS ARE OUTSIDE ORDERED PARAMETERS. TEACH PATIENT/CAREGIVER ON DAILY FOOT INSPECTIONS PT/PROPERTY MANAGEMENT COORDINATOR TO IDENTIFY FALL RISK FACTORS; EDUCATE THE PATIENT/CAREGIVER ON WAYS TO REDUCE FALL RISK FACTORS AND ESTABLISH HOME EXERCISE PROGRAM TO MINIMIZE FALL RISK. MAY TEACH THE PATIENT FLOOR RECOVERY WHEN CLINICALLY APPROPRIATE PT / PROPERTY MANAGEMENT COORDINATOR TO EDUCATE ON DIABETES SELF- MANAGEMENT] Goal [...] End Date/Time Encounter Type Admission Type Attending [facility] Department Encounter ID Discharge Date Discharge Status Discharge Condition Discharge Reason Percent Goals Met 2024-12-08 00:00:00 2025-02-05 00:00:00 Outpatient NEW ADMISSION [facility] [id number] 80.00
== END 2024-12-12 16:18 | disposition home or self-care (01) ==
PROVIDERS: Emergency Provider Nurse Practitioner Family; PCP Internal Medicine
DX: R58 Hemorrhage, not elsewhere classified (principal); I13.0 Hypertensive heart and chronic kidney disease with heart failure and stage 1 through stage 4 chronic kidney disease, or unspecified chronic kidney disease; E11.22 Type 2 diabetes mellitus with diabetic chronic kidney disease; N18.9 Chronic kidney disease, unspecified; I50.9 Heart failure, unspecified; Z79.84 Long term (current) use of oral hypoglycemic drugs; E78.00 Pure hypercholesterolemia, unspecified; Z95.0 Presence of cardiac pacemaker
CPT/HCPCS: 81003; 82948; 87086; 99213; G0463

== ENCOUNTER 2025-03-02 14:22 | Outpatient (CLI) | payer MEDICARE, MEDICAID, SELFPAY ==
--- NOTE | ~2025-03-02 | US_ITS ---
Pelvic ultrasound. Clinical History: Postmenopausal bleeding Technique: Realtime transabdominal and transvaginal scanning of the pelvis was performed. Color flow Doppler and Doppler spectral analysis were performed. Findings: The uterus is anteverted, and measures 9.2 x 4.2 x 4.6 cm. The endometrial stripe is not w ell delineated. There is a 1.1 cm echogenic ovoid focus at the lower uterine segment or cervix.. Neither ovary seen. No adnexal mass seen. There is no evidence of free fluid in the cul de sac. Impression: Endometrial stripe is not well delineated, and cannot be adequately assessed. Given history of postme nopausal bleeding, pelvic MR recommended to assess for abnormal endometrial thickening/lesion. 1.1 cm echogenic lesion at the lower uterine segment or cervix, indeterminate. This could reflect pos sibly focal calcification or complex nabothian cyst. Reviewed, dictated and finalized at [facility]. Impression: Endometrial stripe is not well delineated, and cannot be adequately assessed. G iven history of postmenopausal bleeding, pelvic MR recommended to assess for ab normal endometrial thickening/lesion. 1.1 cm echogenic lesion at the lower uterine segment or cervix, indeterminate. This could reflect possibly focal calcification or complex nabothian cyst.
--- OUTSIDE RECORDS SUMMARY | 2025-03-02 14:28 | XMS_ITS | Clinical Summary ---
Author Organization [facility] Address [address] [place] [address] Phone Care Team Providers Care Complaint Investigator Name Role Phone Toribio Lomeli DO Primary Care Provider [phone] Allergies Active Allergy Reactions Criticality Noted Date Comments Penicillins Unknown 03/25/2017 Medications albuterol HFA (PROVENTIL HFA) 108 (90 Base) MCG/ACT inhaler Inhale 2 puffs every 6 hours as needed 01/17/2019 Active amLODIPine-lee ann zepril (LOTREL) 10-20 MG per capsule Take 1 [...] 03/25/2017 Type 2 diabetes mellitus 03/25/2017 Immunizations Immunization Administration Dates Next Due Influenza (IM) Preservative Free 08/11/2020 Influenza, Injectable, Quadrivalent, Preservativ e Free 07/25/2019 Family History Medical History Relation Comments Kidney disease Neg Hx Social History Tobacco Use Types Packs/Day Years Used Date Smoking Tobacco: Never Smokeless Tobacco: Never Alcohol Use Standard Drinks/Week Comments Yes 0 (1 standard drink = 0.6 oz pur e alcohol) occasionally half a drink Comments Unknown Sex and Gender Information Value Date Recorded Sex Assigned at Not on file Legal Sex Female 2:22 PM MDT Gender Identity Not on file Sexual Orientation [...] Health Maintenance Due Date Last Done Comments Diabetic Foot Exam 1966 Ophthalmology Exam 1966 Pneumococcal PPSV23/PCV13 65 + Years / High and Highest Risk (1 of 5 - PCV) 1975 Influenza Vaccine (Season Ended) 2025 08/11/20, 07/25/2019 Insurance MEDICARE [place]ICA[place] - [place] Care Teams Complaint Investigator Relationship Specialty Start Date End Date Toribio Lomeli DO [address] [place] [address] PCP - General Internal Medicine 06/19/22
--- OUTSIDE RECORDS SUMMARY | 2025-03-02 14:28 | XMS_ITS | Clinical Summary ---
Author Organization [facility] Address [address] [place] [address] Care Team Providers Care Harvesting Manager Name Role Phone Toribio Lomeli DO Primary Care Provider [phone] Allergies Active Allergy Reactions Criticality Noted Date Comments Penicillins Unknown,Hives,Rash High 03/25/2017 Medications metFORMIN 1000 MG tabletIndication s:Type 2 diabetes mellitus without complication, with long-term current use of insulin ([facility]) Take 1 tablet (1,000 mg total) by mouth 2 (two) times daily with meals. 60 tablet 10/04/2020 Active terbinafine (LAMISIL) 250 MG tablet Take 1 tablet (250 mg total) by mouth every other day. 12/08/2022 Active atorvastatin (LIPITOR) 20 MG tablet Take 1 tablet (20 mg total) by mouth daily. 02/04/2023 Active indapamide (LOZOL) 2.5 MG tablet Take 1 tablet (2.5 mg total) by mouth every morning. Active hydrALAZINE (APRESOLINE) 25 MG tablet Take 1 tablet (25 mg total) by mouth 3 (three) times daily. Active dapagliflozin (FARXIGA) 10 MG tablet Take 1 tablet (10 mg total) by mouth daily. Active Vitamin D3 (CHOLECALCIFEROL ) 50 mcg tablet Take 1 tablet (50 mcg total) by mouth daily. Active latanoprost (XALATAN) 0.005 % ophthalmic solution Place 1 drop into the left eye daily. Active OXYGEN 2 L/min by Nasal route continuous. Active metoprolol tartrate (LOPRESSOR) 50 MG tablet Take 1 tablet (50 mg total) by mouth 2 (two) times daily. 180 tablet 02/24/2025 Active Active Problems Problem Noted Date Diagnosed Date SSS (sick sinus syndrome) ([facility]) 10/27 Overview (11/21/2024): Medtronic Bowers Pacemaker implanted for SSS Status post cardiac pacemaker procedure 11/21/19 25 Overview (11/21/2024): Medtronic Prema Pacemaker implanted for SSS Heart block 11/18/2024 Bradycardia 11/18/2024 CKD (chronic kidney disease), stage III 03/27/20 Benign essential hypertension 03/25/2017 Diabetes mellitus, type II ([facility]) Obesity, diabetes, and hyper tension syndrome ([facility]) 03/25/2017 Resolved Problems Problem Noted Date Diagnosed Date Resolved Date Wears glasses 12/31/2017 07/06/2020 Encounters Date Type Department Care Team Description 02/28/2025 Telephone [facility], [address] [address] Brown Mcgovern MD Surgical Clearance 02/24/2025 Telephone [facility] [address], [address] [address] Roxy Acevedo CMA Refill Request (metoprolol) 02/20/2025 Travel 02/19/2025 2:05 PM CDT Allied Health/Nurse Visit [facility], [address] [address] Ady Jhaveri MD Remote Device Check 12/23/2024 10:45 AM MANUFACTURING ADVISOR Office Visit [facility] [address], [address] [address] Ara Sharp, ERP BUSINESS ANALYST-C Follow Up (Hosp- HTN, Heart Block) 12/23/2024 10:00 AM MANUFACTURING ADVISOR Allied Health/Nurse Visit [facility], [address] [place] [address] Ulises Bond MD Pacemaker Check 12/23/2024 Telephone [facility], [address] [place] [address] Serenity Howard RN Information 12/23/2024 Travel from Last 3 Months Immunizations Immunization Administration Dates Next Due Fluzone 6 Months+ [...] drink = 0.6 oz pur e alcohol) [facility] [employer] Answer Date Recorded In the past 12 months has [facility] [employer], gas, oil, or water [email or web address] threatened to shut off services in your [...] any time in the past 12 m [facility], were you homeless or living in a jail (including now)? No 11/18/2024 Comments No Sex and Gender Information Value Date Recorded Sex Assigned at Female 11/18/2024 5:10 PM MANUFACTURING ADVISOR Legal Sex Female 7:29 PM CDT Gender Identity Female 11/18/2024 5:33 PM MANUFACTURING ADVISOR Sexual Orientation Not on file Last Filed Vital Signs Vital Sign Reading Time Taken Comments Blood Pressure 130/70 12/23/2024 10:27 AM MANUFACTURING ADVISOR Pulse 62 12/23/2024 10:27 AM MANUFACTURING ADVISOR Temperature 36.5 C (97.7 F) 11/27/2024 11:20 AM MANUFACTURING ADVISOR Respiratory Rate 18 11/27/2024 11:20 AM MANUFACTURING ADVISOR Oxygen Saturation 93% 12/23/2024 10:27 AM MANUFACTURING ADVISOR Inhaled Oxygen Concentration - - Weight 92.5 kg (204 lb) 12/23/2024 10:27 AM MANUFACTURING ADVISOR Height 167.6 cm (5' 6 ) 12/23/2024 10:27 AM MANUFACTURING ADVISOR Body Mass Index 32.93 12/23/2024 10:27 AM MANUFACTURING ADVISOR Plan of Treatment Upcoming Encounters Date Type Department Care Team (Late st Contact Info) Description 05/22/2025 2:30 PM CDT Allied Health/Nurse Visit [facility] [facility], [address] [place] [address] Ulises Bond MD Three [facility]. [address] [place], [place] [address] Ady Jhaveri MD [facility]. [address] [place], [place] [address] 06/28/2025 2:00 PM CDT Office Visit [facility] [address] [place] [phone] Brown Mcgovern MD [facility]. [address] [place] [address] Health Maintenance Due Date Last Done Comments Colorectal Cancer Screening Colonoscopy (10 Years) 1955 Kidney Health Evaluation 1955 Hepatitis C 1974 DTaP, Tdap and Td Vaccines (1 - Tdap) 1975 Pneumococcal Vaccine: 50+ Years (1 of 2 - PCV) 1975 Zoster Vaccines (1 of 2) 2006 RSV Immunization or 60+ Years (1 - Risk 60-74 years 1-dose series) 2016 Hemoglobin A1C 11/24/2020 05/24/2020, 06/28, 01/17/2019, Additional history exists Annual Medicare Wellness Visit 2021 Dexa Scan (General) 2021 Mammogram Screening 04/13/2022 04/13/2020, 04/12/2019, 04/08/2018 Diabetes: Retinopathy Eye Exam 04/12/2023 04/12/2021, 06/25/2020 COVID-19 Vaccine ( season) 2024 12/20/2020, 11/22/2020 PHQ-2 (Physician Hopi) 10/26/2024 Lipid Panel 11/20/2025 11/20/2024 Meningococcal B [...] patient able to perform ADLs independently Lifestyle Reyna Veliz asset protection professional - family caregiver with be involved in care transitions and discharge planning Lifestyle Geri Dawn RN Medical Devices Implanted Type Area Clinical Athletic Instructor Device Identifier Shelf Expiration Date Model / Serial / Lot Rv Lead Wepczoj-Xtb-O ri-11/20/2024 Implanted:Qty : 1 on 11/20/2024 by Ulises Bond MD Lead Implant [employer] CARDIAC RHYTHM AND HEART FAILURE - DIV M [id number] 08/19/2026 [id number] / [id number] V / Description:RV-Septum Ra Lead Glnsoyc-Wur-M ri-11/20/2024 Implanted:Qty : 1 on 11/20/2024 by Ulises Bond MD Lead Implant [employer] CARDIAC RHYTHM AND HEART FAILURE - DIV M [id number] 08/04/2026 5076-45 / [id number] V / Description:RA-Appendage Pacemaker-Dwaine Pariknson-Mri- Implanted:Qty : 1 on 11/20/2024 by Ulises Bond MD Pacemaker [employer] CARDIAC RHYTHM AND HEART FAILURE - DIV M [id number] 04/08/2026 [id number] / [id number] / Procedures Procedure Name Priority Date/Time Associated Diagnosis Comments LIPID PANEL Routine 11/20/2024 4:15 AM MANUFACTURING ADVISOR DIABETIC RETINOPATHY EXAM (NEGATIVE)(SCAN ORDER) Routine 04/12/2021 HEMOGLOBIN, GLYCOSYLATED Routine 05/24/2020 Type 2 diabetes mellitus without complication, with long-term current use of insulin MG SCREENING W REANNA MICHEAL DIGI Routine 04/13/2020 9:38 AM CDT Breast cancer screening by mammogram from Last 3 Months or Most Recently Relevant to Health Maintenance Results * LIPID PANEL (11/20/2024 4:15 AM MANUFACTURING ADVISOR) CHOLESTEROL 80 <200 MG/DL 11/20/2024 5:03 AM [facility] TRIGLYCERIDES 92 <150 MG/DL 11/20/2024 5:03 AM [facility] HDL 43 >40.0 MG/DL 11/20/2024 5:03 AM [facility] LDL (CALCULATED) 19 <100 MG/DL 11/20/19 5:03 AM [facility] NON HDL CHOLESTEROL 37 <130 MG/DL 11/20 5:03 AM [facility] CHOL/HDL RATIO 1.9 0.0 - 4.5 11/20/2024 5:03 AM [facility] VLDL CALCULATION 18 5 - 55 MG/DL 11/20/2024 5:03 AM [facility] LIPID INTERPRETATION 11/20/2024 5:03 AM [facility] Comment: NIH CONCENSUS REPORT RECOMMENDATIONS: ADULT CHILD LOW RISK: CHOLESTEROL <200 <170 TRIGLYCERIDE <150 --- HDL >=60 --- LDL <100 <110 BORDERLINE: CHOLESTEROL 200-239 170-199 TRIGLYCERIDE 150-199 --- HDL 40-59 --- LDL 100-159 110-129 HIGH RISK: CHOLESTEROL >=240 >=200 TRIGLYCERIDE >=200 --- HDL <40 --- LDL >=160 >=130 11/20/2024 4:15 AM MANUFACTURING ADVISOR us Dannie Clarke MD LABORATORY Final Result [facility] [address] [place] [address], [place] [phone] * DIABETIC RETINOPATHY EXAM (NEGATIVE)(SCAN) (04/12/2021) us Documents Scanned SCANNING Final Result [facility] ON[facility] * HEMOGLOBIN, GLYCOSYLATED (05/24/2020) HGB A1C 6.9 % [address] ([address]), [place] 05/24/2020 Jean Mark MD LABORATORY Final Resul t [address] ([address]), [place] [address] [place] [address], [place] [phone] * MG SCREENING W REANNA MICHEAL DIGI (04/13/2020 9:38 AM CDT) Anatomical Region Laterality Modality Breast Bilateral Mammography 04/13/2020 10:5 2 AM CDT Impressions 04/13/2020 10:54 AM CDT IMPRESSION: 1. No mammographic evidence of malignancy. 2. BI-RADS Category 1 - negative. Annual screening mammography recommended [facility] BI-RADS Categories: Category 0 - needs additional [...] Recently Relevant to Health Maintenance Insurance [facility] [id number] MEDICARE Advance Directives Documents on File Type Date Recorded Patient Sharepoint Engineer Expl anation Advance Directives and Living Will 11/29/2024 9:26 AM 12/23/2013 POA FOR HEALTH CARE Power of Aws Developer 02/07/2023 [facility] * Full Code (Latest Code Status on File) Date Activated Date Inactivated Comments 11/18/2024 7:42 PM 11/27/2024 4:16 PM Care Teams Harvesting Manager Relationship Specialty Start Date End Date Toribio Lomeli DO [address] [place] [address] PCP - General INTERNAL MEDICINE 11/18/24
--- OUTSIDE RECORDS SUMMARY | 2025-03-02 14:28 | XMS_ITS | Referral Summary ---
Author Organization [facility] Address [address] [place] [phone] Care Team Providers Care Director Of Corporate Responsibility Name Role Phone Toribio Lomeli DO Primary Care Provider [phone] Allergies Active Allergy Reactions Criticality Noted Date [...] fixation Assessment & Plan (12/30/2023 9:13 PM MUSIC COMPOSITION TEACHER): Trial of latanoprost at independent living facility with assistance for AM dosing successful to lower intraocular pressure (IOP) to low teens CPM Discussed with family and pt- defer diode counterintelligence agent for now Refer to Dr. Humphries- closer for pt convenience I will be happy to see in future prn Assessment & Plan (11/11/2023 8:56 PM MUSIC COMPOSITION TEACHER): New patient referred from [facility] No light perception (NLP) right eye (OD) [...] breathing difficulty referred by Joann Barreto OD ([facility]) for blurred vision. History is limited [...] 03/25/2017 Assessment & Plan (11/11/2023 8:56 PM MUSIC COMPOSITION TEACHER): No retinopathy Social History Tobacco Use Types Packs/Day Years Used Date Smoking Tobacco: Never Tobacco Cessation:Counseling Given: Not Answered Comments Unknown Sex and Gender Information Value Date Recorded Sex Assigned at Not on file Legal Sex Female 1:31 PM CDT Gender Identity Not on file Sexual Orientation Not on file Plan of Treatment Not on file Insurance MEDICARE MEDICARE [place] MEDICARE [facility] Address: [address] [address] [place] [address] [facility] Care Teams Director Of Corporate Responsibility Relationship Specialty Start Date End Date Toribio Lomeli DO PCP - General Internal Medicine 08/14/21
--- OUTSIDE RECORDS SUMMARY | 2025-03-02 14:28 | XMS_ITS | Clinical Summary ---
Author Organization [facility] Address [address] [place] [address] Care Team Providers Care Voice Teacher Name Role Phone Toribio Lomeli DO Primary Care Provider [phone] Allergies Active Allergy Reactions Criticality Noted Date [...] fixation Assessment & Plan (12/30/2023 9:13 PM INTERNAL COMBUSTION ENGINE INSPECTOR): Trial of latanoprost at independent living facility with assistance for AM dosing successful to lower intraocular pressure (IOP) to low teens CPM Discussed with family and pt- defer diode print line supervisor for now Refer to Dr. Humphries- closer for pt convenience I will be happy to see in future prn Assessment & Plan (11/11/2023 8:56 PM INTERNAL COMBUSTION ENGINE INSPECTOR): New patient referred from [facility] No light [...] breathing difficulty referred by Joann Barreto OD ([facility]) for blurred vision. History is [...] 03/25/2017 Assessment & Plan (11/11/2023 8:56 PM INTERNAL COMBUSTION ENGINE INSPECTOR): No retinopathy Social History Tobacco Use Types [...] Vaccine Completed 01/15/2023, 11/14/2022 Insurance MEDICARE MEDICARE [facility] MEDICARE ID[place] Care Teams Voice Teacher Relationship Specialty Start Date End Date oTribio Lomeli DO PCP - General Internal Medicine 08/14/21
--- OUTSIDE RECORDS SUMMARY | 2025-03-02 14:28 | XMS_ITS | Encounter Summary ---
Author Organization [facility] Address [facility] [place] [address] Care Team Providers Care Hydrographical Technical Officer Name Role Phone Jean Mark MD Primary Care Provider [phone] Toribio Lomeli DO Primary Care Provider [phone] Encounter Details Date Type Department Care Team ([facility] Contact Info) Description 06/29/2020 Abstract [facility] Family & Internal Medicine [facility] [address] [place] [address] [place] [address] [place] [address] Social History Tobacco Use Types [...] Sex Assigned at Female 11/18/2024 5:10 PM PARKING ENFORCEMENT TECHNICIAN Legal Sex Female 7:29 PM CDT Gender Identity Female 11/18/2024 5:33 PM PARKING ENFORCEMENT TECHNICIAN Sexual Orientation Not on file documented as of this encounter Plan of Treatment Upcoming Encounters Date Type Department Care Team (Late st Contact Info) Description 05/22/2025 2:30 PM CDT Allied Health/Nurse Visit [place] [facility] [facility], [facility] [address] [place] [address] Ulises Bond MD Three [facility]. [facility] [address] [place], [place] [phone] Ady Jhaveri MD Three [facility]. [facility] [address] [place], [place] [address] 06/28/2025 2:00 PM CDT Office Visit [place] [facility] [address] [place] [phone] Brown Mcgovern MD [facility]. [facility] [address] [place] [address] documented as of this encounter Visit Diagnoses Not on filedocumented in this encounter Additional Health Concerns Infection Onset Date Last Indicated Resolved Time COVID-19 Rule Out 02/07/2023 02/07/2023 02/07/2023 12:46 PM CDT COVID-19 Rule Out 11/18/2024 11/18/2024 11/18/2024 9:23 AM PARKING ENFORCEMENT TECHNICIAN documented as of this encounter Care Teams Hydrographical Technical Officer Relationship Specialty [place] [address] [place] [address] PCP - General FAMILY PRACTICE 10/04/18 11/17/24 Toribio Lomeli DO [address] [place] [address] PCP - General INTERNAL MEDICINE 11/18/24 documented as of this encounter
== END 2025-03-02 14:23 | disposition home or self-care (01) ==
PROVIDERS: PCP Nurse Practitioner; Visit Provider Obstetrics & Gynecology
DX: N88.8 Other specified noninflammatory disorders of cervix uteri (principal); N95.0 Postmenopausal bleeding
CPT/HCPCS: 76830; 76856

== ENCOUNTER 2025-05-05 08:27 | Outpatient (CLI) | payer MEDICARE, MEDICAID, SELFPAY ==
--- OUTSIDE RECORDS SUMMARY | 2025-05-05 08:33 | XMS_ITS | Clinical Summary ---
Author Organization [facility] Address [address] [place] [address] Phone Care Team Providers Care River Rat Name Role Phone Toribio Lomeli DO Primary Care Provider [phone] Allergies Active Allergy Reactions Criticality Noted Date [...] 9:46 AM CDT Height 167.6 cm (5' 6) 07/28/2022 9:46 AM CDT Body Mass Index 35.51 07/28/2022 9:46 AM CDT Plan of Treatment Health Maintenance Due Date Last Done Comments Pneumococcal PPSV23/PCV13 65 + Years / Low and Medium Risk (1 of 2 - PCV) 2006 Influenza Vaccine (#1) 2025 08/11/2020, 2018 Insurance MEDICARE MEDICAID - [place] Care Teams River Rat Relationship Specialty Start Date End Date Toribio Lomeli DO [address] [place] [address] PCP - General Internal Medicine 06/19/22
--- OUTSIDE RECORDS SUMMARY | 2025-05-05 08:33 | XMS_ITS | Referral Summary ---
Author Organization [facility] Address [address] [place] [phone] Care Team Providers Care Inspector Weights And Measures Name Role Phone Toribio Lomeli DO Primary Care Provider [phone] Allergies Active Allergy Reactions Criticality Noted Date [...] fixation Assessment & Plan (12/30/2023 9:13 PM SUPERCHARGER REPAIR SUPERVISOR): Trial of latanoprost at independent living facility with assistance for AM dosing successful to lower intraocular pressure (IOP) to low teens CPM Discussed with family and pt- defer diode seaport planning manager for now Refer to Dr. Humphries- closer for pt convenience I will be happy to see in future prn Assessment & Plan (11/11/2023 8:56 PM SUPERCHARGER REPAIR SUPERVISOR): New patient referred from [facility] No light [...] breathing difficulty referred by Joann Barreto OD [facility]) for blurred vision. History is limited [...] 03/25/2017 Assessment & Plan (11/11/2023 8:56 PM SUPERCHARGER REPAIR SUPERVISOR): No retinopathy Social History Tobacco Use Types Packs/Day Years Used Date Smoking Tobacco: Never Tobacco Cessation:Counseling Given: Not Answered Comments Unknown Sex and Gender Information Value Date Recorded Sex Assigned at Not on file Legal Sex Female 1:31 PM CDT Gender Identity Not on file Sexual Orientation Not on file Plan of Treatment Not on file Insurance MEDICARE MEDICARE [place]PA MEDICARE [facility] Address: [address] [address] [place] [address] [employer] Care Teams Inspector Weights And Measures Relationship Specialty Start Date End Date Toribio Lomeli DO PCP - General Internal Medicine 08/14/21
--- OUTSIDE RECORDS SUMMARY | 2025-05-05 08:33 | XMS_ITS | Clinical Summary ---
Author Organization [facility] Address [address] [place] [address] Care Team Providers Care Procurement Specialist Name Role Phone Toribio Lomeli DO Primary Care Provider [phone] Allergies Active Allergy Reactions Criticality Noted Date [...] fixation Assessment & Plan (12/30/2023 9:13 PM JOCKEY AGENT): Trial of latanoprost at independent living facility with assistance for AM dosing successful to lower intraocular pressure (IOP) to low teens CPM Discussed with family and pt- defer diode traffic or system dispatcher for now Refer to Dr. Humphries- closer for pt convenience I will be happy to see in future prn Assessment & Plan (11/11/2023 8:56 PM JOCKEY AGENT): New patient referred from [facility] No light [...] breathing difficulty referred by Joann Barreto OD ([facility]) for blurred vision. History is [...] 03/25/2017 Assessment & Plan (11/11/2023 8:56 PM JOCKEY AGENT): No retinopathy Social History Tobacco Use Types [...] 2023-2 5 season) 2024 09/09/2021, 12/20/2020, 11/22/2020 Dilated Eye Exam 11/11/2024 11/11/2023 Influenza Vaccine (Season Ended) 2025 07/28/2023, 07/29/2022, 07/12/2021, Additional history exists DTaP/Tdap/Td Vaccine (2 - Td or Tdap) 11/14/2032 11/14/2022 Pneumococcal vaccine 65+ Completed 11/14/2022 Zoster Vaccine Completed 01/15/2023, 11/14/2022 Insurance MEDICARE MEDICARE [facility] MEDICARE IDPA Care Teams Procurement Specialist Relationship Specialty Start Date End Date Toribio Lomeli DO PCP - General Internal Medicine 08/14/21
--- OUTSIDE RECORDS SUMMARY | 2025-05-05 08:33 | XMS_ITS | Encounter Summary ---
Author Organization [facility] Address Critical access hospital[address] [place] [address] Care Team Providers Care Loss Control Engineer Name Role Phone Jean Mark MD Primary Care Provider [phone] Toribio Lomeli DO Primary Care Provider [phone] Encounter Details Date Type Department Care Team ([facility] Contact Info) Description 06/29/2020 Abstract [facility] Medical Group Family & Internal Medicine [facility] [address] [place] [address] [place] [address] [place] [address] Social History Tobacco Use Types [...] Sex Assigned at Female 11/18/2024 5:10 PM TRACTOR TRAILER MECHANIC Legal Sex Female 7:29 PM CDT Gender Identity Female 11/18/2024 5:33 PM TRACTOR TRAILER MECHANIC Sexual Orientation Not on file documented as of this encounter Plan of Treatment Upcoming Encounters Date Type Department Care Team (Late st Contact Info) Description 05/22/2025 2:30 PM CDT Allied Health/Nurse Visit [facility] THREE [facility], [facility] [address] [place] [address] Ulises Bond MD Three [facility] [address] [place], [place] [address] Ady Jhaveri MD Three [facility]. [facility] [address] [place], [place] [address] 06/28/2025 2:00 PM CDT Office Visit [facility] [address] [place] [address] Brown Mcgovern MD [facility]. [facility] [address] [place] [address] documented as of this encounter Visit Diagnoses Not on filedocumented in this encounter Additional Health Concerns Infection Onset Date Last Indicated Resolved Time COVID-19 Rule Out 02/07/2023 02/07/2023 02/07/2023 12:46 PM CDT COVID-19 Rule Out 11/18/2024 11/18/2024 11/18/2024 9:23 AM TRACTOR TRAILER MECHANIC documented as of this encounter Care Teams Loss Control Engineer Relationship Specialty [place] [address] [place] [address] PCP - General FAMILY PRACTICE 10/04/18 11/17/24 Toribio Lomeli DO [address] [place] [address] PCP - General INTERNAL MEDICINE 11/18/24 documented as of this encounter
--- OUTSIDE RECORDS SUMMARY | 2025-05-05 08:33 | XMS_ITS | Clinical Summary ---
Author Organization [facility] Address [address] [place] [address] Care Team Providers Care Speech And Hearing Clinic Director Name Role Phone Toribio Lomeli DO Primary Care Provider [phone] Allergies Active Allergy Reactions Criticality Noted Date Comments Penicillins Unknown,Hives,Rash High 03/25/2017 Medications metFORMIN 1000 MG tabletIndication s:Type 2 diabetes mellitus without complication, with long-term current use of insulin ([facility]) Take 1 tablet (1,000 mg total) by [...] Date Diagnosed Date SSS (sick sinus syndrome) ([facility]) 10/27 Overview (11/21/2024): Medtronic Prema Pacemaker implanted for SSS Status post cardiac pacemaker procedure 11/21/19 25 Overview (11/21/2024): Medtronic Prema Pacemaker implanted for SSS Heart block 11/18/2024 Bradycardia 11/18/2024 CKD (chronic kidney disease), stage III 03/27/20 Benign essential hypertension 03/25/2017 Diabetes mellitus, type II ([facility]) Obesity, diabetes, and hyper tension syndrome ([facility]) 03/25/2017 Resolved Problems Problem Noted Date Diagnosed Date Resolved Date Wears glasses 12/31/2017 07/06/2020 Encounters Date Type Department Care Team Description 02/28/2025 Telephone [facility], [address] [address] Brown Mcgovern MD Surgical Clearance 02/24/2025 Telephone [facility], [address] [address] Roxy Acevedo CMA Refill Request (metoprolol) 02/20/2025 Travel 02/19/2025 2:05 PM CDT Allied Health/Nurse Visit [facility], [address] [address] Ady Jhaveri MD Remote Device Check from Last 3 Months Immunizations Immunization Administration [...] drink = 0.6 oz pur e alcohol) [facility] Utilities Answer Date Recorded In the past 12 months has th e electric, gas, oil, or water company threatened to shut off services in your [...] any time in the past 12 m [facility], were you homeless or living in a [facility] (including now)? No 11/18/2024 Comments No Sex and Gender Information Value Date Recorded Sex Assigned at Female 11/18/2024 5:10 PM PERSONNEL SPECIALIST Legal Sex Female 7:29 PM CDT Gender Identity Female 11/18/2024 5:33 PM PERSONNEL SPECIALIST Sexual Orientation Not on file Last Filed Vital Signs Vital Sign Reading Time Taken Comments Blood Pressure 130/70 12/23/2024 10:27 AM PERSONNEL SPECIALIST Pulse 62 12/23/2024 10:27 AM PERSONNEL SPECIALIST Temperature 36.5 C (97.7 F) 11/27/2024 11:20 AM PERSONNEL SPECIALIST Respiratory Rate 18 11/27/2024 11:20 AM PERSONNEL SPECIALIST Oxygen Saturation 93% 12/23/2024 10:27 AM PERSONNEL SPECIALIST Inhaled Oxygen Concentration - - Weight 92.5 kg (204 lb) 12/23/2024 10:27 AM PERSONNEL SPECIALIST Height 167.6 cm (5' 6) 12/23/2024 10:27 AM PERSONNEL SPECIALIST Body Mass Index 32.93 12/23/2024 10:27 AM PERSONNEL SPECIALIST Plan of Treatment Upcoming Encounters Date Type Department Care Team (Late st Contact Info) Description 05/22/2025 2:30 PM CDT Allied Health/Nurse Visit [facility], [facility] [address] [place], [place] [address] Ulises Bond MD [facility]. [facility] [address] [place], [place] [address] Ady Jhaveri MD [facility]. [facility] [address] [place], [place] [address] 06/28/2025 2:00 PM CDT Office Visit [facility] [address] [place] [address] Brown Mcgovern MD Three [facility]. [facility] [address] [place] [address] Health Maintenance Due Date Last Done Comments [...] ( season) 2024 12/20/2020, 11/22/2020 PHQ-2 ([facility] [place]) 10/26/2024 Lipid Panel 11/20/2025 11/20/2024 Meningococcal B [...] perform ADLs independently Lifestyle No [facility] medical assistant - family caregiver with be involved in care transitions and discharge planning Lifestyle No Geri Rciardo RN Medical Devices Implanted Type Area On Call Device Identifier Shelf Expiration Date Model / Serial / Lot Rv Lead Kgpimgt-Tox-O ri-11/20/2024 Implanted:Qty : 1 on 11/20/2024 by Ulises Bond MD Lead Implant [employer] CARDIAC RHYTHM AND HEART FAILURE - DIV M [id number] 08/19/2026 [id number] / [id number] / Description:RV-Septum Ra Lead Ssyqifv-Tzp-D ri-11/20/2024 Implanted:Qty : 1 on 11/20/2024 by Ulises Bond MD Lead Implant [employer] CARDIAC RHYTHM AND HEART FAILURE - DIV M [id number] 08/04/2026 5076-45 / [id number] / Description:RA-Appendage Pacemaker-Dwaine GregorioPrema-Mri- Implanted:Qty : 1 on 11/20/2024 by Ulises Bond MD Pacemaker [employer] CARDIAC RHYTHM AND HEART FAILURE - DIV M [id number] 04/08/2026 [id number] / [id number] / Procedures Procedure Name Priority Date/Time Associated Diagnosis Comments LIPID PANEL Routine 11/20/2024 4:15 AM PERSONNEL SPECIALIST DIABETIC RETINOPATHY EXAM (NEGATIVE)(SCAN ORDER) Routine 04/12/2021 HEMOGLOBIN, GLYCOSYLATED Routine 05/24/2020 Type 2 diabetes mellitus without complication, with long-term current use of insulin MG SCREENING W REANNA MICHEAL DIGI Routine 04/13/2020 9:38 AM CDT Breast cancer screening by mammogram from Last 3 Months or Most Recently Relevant to Health Maintenance Results * LIPID PANEL (11/20/2024 4:15 AM PERSONNEL SPECIALIST) CHOLESTEROL 80 <200 MG/DL 11/20/2024 5:03 AM PERSONNEL SPECIALIST [facility] TRIGLYCERIDES 92 <150 MG/DL 11/20/2024 5:03 AM PERSONNEL SPECIALIST [facility] HDL 43 >40.0 MG/DL 11/20/2024 5:03 AM PERSONNEL SPECIALIST [facility] LDL (CALCULATED) 19 <100 MG/DL 11/20/19 5:03 AM [facility] NON HDL CHOLESTEROL 37 <130 MG/DL 11/20 5:03 AM [facility] CHOL/HDL RATIO 1.9 0.0 - 4.5 11/20/2024 5:03 AM [facility] VLDL CALCULATION 18 5 - 55 MG/DL 11/20/2024 5:03 AM [facility] LIPID INTERPRETATION 11/20/2024 5:03 AM [facility] Comment: NIH CONCENSUS REPORT RECOMMENDATIONS: ADULT CHILD LOW RISK: CHOLESTEROL <200 <170 TRIGLYCERIDE <150 --- HDL >=60 --- LDL <100 <110 BORDERLINE: CHOLESTEROL 200-239 170-199 TRIGLYCERIDE 150-199 --- HDL 40-59 --- LDL 100-159 110-129 HIGH RISK: CHOLESTEROL >=240 >=200 TRIGLYCERIDE >=200 --- HDL <40 --- LDL >=160 >=130 11/20/2024 4:15 AM PERSONNEL SPECIALIST Dannie Clarke MD LABORATORY Final Result Performing Organization Address City/[facility]/ZIP Co de Phone Number [facility] [address] [address], [place] [phone] * DIABETIC RETINOPATHY EXAM (NEGATIVE)(SCAN) (04/12/2021) Documents Scanned SCANNING Final Result [facility] ONBASE * HEMOGLOBIN, GLYCOSYLATED (05/24/2020) HGB A1C 6.9 % [place] [place] ([id number]) [place] 05/24/2020 Jean Mark MD LABORATORY Final Resul t [place] [address] ([id number]), [place] [address] [place] [address], * MG SCREENING W REANNA MICHEAL DIGI (04/13/2020 9:38 AM CDT) Anatomical Region Laterality Modality Breast Bilateral Mammography 04/13/2020 10:5 2 AM CDT Impressions 04/13/2020 10:54 AM CDT IMPRESSION: 1. No mammographic evidence of malignancy. 2. BI-RADS Category 1 - negative. Annual screening mammography recommended MQSA BI-RADS Categories: Category 0 - needs additional [...] retraction. Axillary regions are within normal limits. Jean Mark MD MAMMO Final Resul t from Last 3 Months or Most Recently Relevant to Health Maintenance Insurance MEDICARE Advance Directives Documents on File Type Date Recorded Patient Solar Fabrication Technician Expl anation Advance Directives and Living Will 11/29/2024 9:26 AM 12/23/2013 POA FOR HEALTH CARE Power of Supervisor Slate Splitting 02/07/2023 [facility] * Full Code (Latest Code Status on File) Date Activated Date Inactivated Comments 11/18/2024 7:42 PM 11/27/2024 4:16 PM Care Teams Speech And Hearing Clinic Director Relationship Specialty Start Date End Date Toribio Lomeli DO [address] [facility] [address] [place] [address] PCP - General INTERNAL MEDICINE 11/18/24
[2025-05-05 09:06] LABS: INR 1.0; Prothrombin Time 13.3 Seconds (11.1-14.7)
[2025-05-05 09:07] LABS: Partial Thromboplastin Time 32.2 Seconds (22.3-36.8)
== END 2025-05-05 08:28 | disposition home or self-care (01) ==
LOC: ANHSURGERY 08:31
PROVIDERS: Anesthesiology; PCP Internal Medicine; Visit Provider Obstetrics & Gynecology
DX: E11.22 Type 2 diabetes mellitus with diabetic chronic kidney disease (principal); N18.30 Chronic kidney disease, stage 3 unspecified
CPT/HCPCS: 36415; 85610; 85730

== ENCOUNTER 2025-05-10 01:22 | Day surgery (SDC) | payer MEDICARE, MEDICAID, SELFPAY ==
[2025-05-04 13:40] VITALS: BMI 34.1
--- NOTE | 2025-05-04 14:12 | PC.NURSE ---
Report to the Outpatient Waiting Room, entrance under the green pavilion located off [facility], at time __0700am on date __05/10/25 . Planned Procedure Time: __0900am .? Time changes happen often and if your time is changed the preop area will call you the afternoon before. - You and your visitor will be asked to self-screen and do not enter if you have any COVID symptoms. Please call surgeon if you need to reschedule. - A mask is optional within the hospital at this time. Patients may have clear liquids (water, carbonated beverages, clear teas, apple juice) until 3 hours prior to surgery with a maximum of 20 ounces. - No food from midnight until time of surgery and no smoking, or chewing tobacco (or any form of nicotine). No chewing gum, candy or mints.(0700am) Take only the following medications with a SIP of water on the morning of surgery: ____Amlodipine, Metoprolol, Hydralazine and Tylenol if needed DO NOT STOP ANY OF YOUR OTHER PRESCRIPTION MEDICATIONS PRIOR TO SURGERY EXCEPT THE FOLLOWING Hold all vitamins and supplements for 3 days per anesthesiologist.Date to take last dose is 05/08/25 Medications to discontinue per physician NONE Date to take last dose___NONE Please no make-up, nail greek, hairspray, perfume, deodorant, or body powder the day of surgery.? No jewelry (including any body piercings) or valuables the day of surgery, leave them at home.? Please take a shower or bath the night before, or the morning of, surgery with an antibacterial soap.? Wear comfortable, loose fitting clothing.? - Jewelry must be removed prior to entering the operating room.? Rings and piercings that are not removed may be cut off. - The hospital will not accept responsibility for valuables.? - Please leave all valuables, including medications, at home the day of surgery. If you are going home after surgery, a licensed driver medic must drive you home.? - NO public transportation without another adult if you receive anesthesia. - We recommend that an adult stay with you for 24 hours following discharge. - We also recommend that you do not drive, make important decision, drink alcoholic beverages, or take any drugs that were not prescribed by your health care provider for at least 24 hours after your discharge time. Follow any additional instructions given to you from your surgeon. Telephone instructions given to _Reyna ( Sister) and asked if any additional questions and then verbalized understanding. Patient advised to call surgeon office or pre surgery nurse liaison [phone] if any additional questions.
[2025-05-10] VITALS (8 sets, daily range): BP systolic 107–191; BP diastolic 54–89; PULSE 69–90; RESP 10–18; TEMP 36.3; O2SAT 95–99
--- OUTSIDE RECORDS SUMMARY | 2025-05-10 01:33 | XMS_ITS | Clinical Summary ---
Author Organization [facility] Address [address] [place] [address] Care Team Providers Care Pepper Cutter Name Role Phone Toribio Lomeli DO Primary Care Provider [phone] Allergies Active Allergy Reactions Criticality Noted Date [...] fixation Assessment & Plan (12/30/2023 9:13 PM SAND FILLER): Trial of latanoprost at independent living facility with assistance for AM dosing successful to lower intraocular pressure (IOP) to low teens CPM Discussed with family and pt- defer diode federal district clerk for now Refer to Dr. Humphries- closer for pt convenience I will be happy to see in future prn Assessment & Plan (11/11/2023 8:56 PM SAND FILLER): New patient referred from [facility] No light [...] breathing difficulty referred by Joann Barreto OD ([facility]) for blurred vision. History is limited as [...] 03/25/2017 Assessment & Plan (11/11/2023 8:56 PM SAND FILLER): No retinopathy Social History Tobacco Use Types [...] Vaccine Completed 01/15/2023, 11/14/2022 Insurance MEDICARE MEDICARE [facility] MEDICARE IDPA Care Teams Pepper Cutter Relationship Specialty Start Date End Date Toribio Lomeli DO PCP - General Internal Medicine 08/14/21
--- OUTSIDE RECORDS SUMMARY | 2025-05-10 01:33 | XMS_ITS | Clinical Summary ---
Author Organization [facility] Address [address] [place] [address] Phone Care Team Providers Care Manufacturing Production Manager Name Role Phone Toribio Lomeli DO Primary Care Provider [phone] Allergies Active Allergy Reactions Criticality Noted Date [...] Insurance MEDICARE [place] - [place] Care Teams Manufacturing Production Manager Relationship Specialty Start Date End Date Toribio Lomeli DO [address] [place] [address] PCP - General Internal Medicine 06/19/22
--- OUTSIDE RECORDS SUMMARY | 2025-05-10 01:33 | XMS_ITS | Referral Summary ---
Author Organization [facility] Address [address] [place] [address] Care Team Providers Care Drapery Estimator Name Role Phone Toribio Lomeli DO Primary Care Provider [phone] Allergies Active Allergy Reactions Criticality Noted Date [...] fixation Assessment & Plan (12/30/2023 9:13 PM COMPLIANCE ADVISOR): Trial of latanoprost at independent living facility with assistance for AM dosing successful to lower intraocular pressure (IOP) to low teens CPM Discussed with family and pt- defer diode financial manager for now Refer to Dr. Humphries- closer for pt convenience I will be happy to see in future prn Assessment & Plan (11/11/2023 8:56 PM COMPLIANCE ADVISOR): [facility] from [facility] No light [...] breathing difficulty referred by Joann Barreto OD ([facility]) for blurred vision. History is limited [...] 03/25/2017 Assessment & Plan (11/11/2023 8:56 PM COMPLIANCE ADVISOR): No retinopathy Social History Tobacco Use Types Packs/Day Years Used Date Smoking Tobacco: Never Tobacco Cessation:Counseling Given: Not Answered Comments Unknown Sex and Gender Information Value Date Recorded Sex Assigned at Not on file Legal Sex Female 1:31 PM CDT Gender Identity Not on file Sexual Orientation Not on file Plan of Treatment Not on file Insurance MEDICARE MEDICARE IDPA MEDICARE IDMA Care Teams Drapery Estimator Relationship Specialty Start Date End Date Toribio Lomeli DO PCP - General Internal Medicine 08/14/21
--- OUTSIDE RECORDS SUMMARY | 2025-05-10 01:33 | XMS_ITS | Encounter Summary ---
Author Organization [facility] Address [facility] [place] [address] Care Team Providers Care Business Office Manager Name Role Phone Jean Mark MD Primary Care Provider [phone] Toribio Lomeli DO Primary Care Provider [phone] Encounter Details Date Type Department Care Team ([facility] Contact Info) Description 06/29/2020 Abstract [facility] Medical Group Family & Internal Medicine [facility] [address] [place] [address] [place] [address] [place] [address] Social History Tobacco Use Types [...] Sex Assigned at Female 11/18/2024 5:10 PM MINERAL RESOURCES INSPECTOR Legal Sex Female 7:29 PM CDT Gender Identity Female 11/18/2024 5:33 PM MINERAL RESOURCES INSPECTOR Sexual Orientation Not on file documented as of this encounter Plan of Treatment Upcoming Encounters Date Type Department Care Team (Late st Contact Info) Description 05/22/2025 2:30 PM CDT Allied Health/Nurse Visit [facility] THREE [facility], [facility] [address] [place] [address] Ulises Bond MD Three [facility]. [facility] [address] [place], [place] [address] Ady Jhaveri MD Three [facility]. [facility] [address] [place], [place] [address] 06/28/2025 2:00 PM CDT Office Visit [facility] [address] [place] [address] Brown Mcgovern MD [facility]. [facility] [address] [place] [address] documented as of this encounter Visit Diagnoses Not on filedocumented in this encounter Additional Health Concerns Infection Onset Date Last Indicated Resolved Time COVID-19 Rule Out 02/07/2023 02/07/2023 02/07/2023 12:46 PM CDT COVID-19 Rule Out 11/18/2024 11/18/2024 11/18/2024 9:23 AM MINERAL RESOURCES INSPECTOR documented as of this encounter Care Teams Business Office Manager Relationship Specialty [place] [address] [place] [address] PCP - General FAMILY PRACTICE 10/04/18 11/17/24 Toribio Lomeli DO [address] [place] [address] PCP - General INTERNAL MEDICINE 11/18/24 documented as of this encounter
--- OUTSIDE RECORDS SUMMARY | 2025-05-10 01:33 | XMS_ITS | Clinical Summary ---
Author Organization [facility] Address [address] [place] [address] Care Team Providers Care Forest Pathologist Name Role Phone Toribio Lomeli DO Primary Care Provider [phone] Allergies Active Allergy Reactions Criticality Noted Date Comments Penicillins Unknown,Hives,Rash High 03/25/2017 Medications metFORMIN 1000 MG tabletIndication s:Type 2 diabetes mellitus without complication, with long-term current use of insulin ([facility]) Take 1 tablet (1,000 mg total) [...] Date Diagnosed Date SSS (sick sinus syndrome) ([facility]) 10/27 Overview (11/21/2024): Medtronic Prema Pacemaker implanted for SSS Status post cardiac pacemaker procedure 11/21/19 25 Overview (11/21/2024): Medtronic Prema Pacemaker implanted for SSS Heart block 11/18/2024 Bradycardia 11/18/2024 CKD (chronic kidney disease), stage III 03/27/20 Benign essential hypertension 03/25/2017 Diabetes mellitus, type II ([facility]) Obesity, diabetes, and hyper tension syndrome ([facility]) 03/25/2017 Resolved Problems Problem Noted Date Diagnosed Date Resolved Date Wears glasses 12/31/2017 07/06/2020 Encounters Date Type Department Care Team Description 02/28/2025 Telephone [facility], [address] [address] Brown Mcgovern MD Surgical Clearance 02/24/2025 Telephone [facility], [address] [address] Roxy Acevedo CMA Refill Request (metoprolol) 02/20/2025 Travel 02/19/2025 2:05 PM CDT Allied Health/Nurse Visit [facility], [address] [address] Ady Jhaveri MD Remote Device Check from [...] drink = 0.6 oz pur e alcohol) [facility] Utilities Answer Date Recorded In the past [...] any time in the past 12 m [facility], were you homeless or living in a penitentiary (including now)? No 11/18/2024 Comments No Sex and Gender Information Value Date Recorded Sex Assigned at Female 11/18/2024 5:10 PM ASSISTANT NEWS DIRECTOR Legal Sex Female 7:29 PM CDT Gender Identity Female 11/18/2024 5:33 PM ASSISTANT NEWS DIRECTOR Sexual Orientation Not on file Last Filed Vital Signs Vital Sign Reading Time Taken Comments Blood Pressure 130/70 12/23/2024 10:27 AM ASSISTANT NEWS DIRECTOR Pulse 62 12/23/2024 10:27 AM ASSISTANT NEWS DIRECTOR Temperature 36.5 C (97.7 F) 11/27/2024 11:20 AM ASSISTANT NEWS DIRECTOR Respiratory Rate 18 11/27/2024 11:20 AM ASSISTANT NEWS DIRECTOR Oxygen Saturation 93% 12/23/2024 10:27 AM ASSISTANT NEWS DIRECTOR Inhaled Oxygen Concentration - - Weight 92.5 kg (204 lb) 12/23/2024 10:27 AM ASSISTANT NEWS DIRECTOR Height 167.6 cm (5' 6) 12/23/2024 10:27 AM ASSISTANT NEWS DIRECTOR Body Mass Index 32.93 12/23/2024 10:27 AM ASSISTANT NEWS DIRECTOR Plan of Treatment Upcoming Encounters Date Type Department Care Team (Late st Contact Info) Description 05/22/2025 2:30 PM CDT Allied Health/Nurse Visit [facility], [address] [place], [place] [address] Ulises Bond MD [facility]. [address] [place], [place] [address] Ady Jhaveri MD [facility]. [address] [place], [place] [address] 06/28/2025 2:00 PM CDT Office Visit [facility] [address] [place] [address] Brown Mcgovern MD Three [facility]. [facility] [address] [place] [address] Health Maintenance Due Date Last Done Comments [...] ( season) 2024 12/20/2020, 11/22/2020 PHQ-2 (Physician [place]) 10/26/2024 Lipid Panel 11/20/2025 11/20/2024 Meningococcal B [...] perform ADLs independently Lifestyle No Reyna Thurston clinical documentation clerk - family caregiver with be involved in care transitions and discharge planning Lifestyle No Geri Ricardo RN Medical Devices Implanted Type Area Basket Weaver Device Identifier Shelf Expiration Date Model / Serial / Lot Rv Lead Uzmiqfi-Ime-G ri-11/20/2024 Implanted:Qty : 1 on 11/20/2024 by Ulises Bond MD Lead Implant [employer] CARDIAC RHYTHM AND HEART FAILURE - DIV M [id number] 08/19/2026 [id number] / [id number] V / Description:RV-Septum Ra Lead Ypugxln-Vqw-V ri-11/20/2024 Implanted:Qty : 1 on 11/20/2024 by Ulises Bond MD Lead Implant [employer] CARDIAC RHYTHM AND HEART FAILURE - DIV M [id number] 08/04/2026 5076-45 / [id number] V / Description:RA-Appendage Pacemaker-Dwaine GregorioPrema-Mri- Implanted:Qty : 1 on 11/20/2024 by Ulises Bond MD Pacemaker [employer] CARDIAC RHYTHM AND HEART FAILURE - DIV M [id number] 04/08/2026 [id number] / [id number] / Procedures Procedure Name Priority Date/Time Associated Diagnosis Comments LIPID PANEL Routine 11/20/2024 4:15 AM ASSISTANT NEWS DIRECTOR DIABETIC RETINOPATHY EXAM (NEGATIVE)(SCAN ORDER) Routine 04/12/2021 HEMOGLOBIN, GLYCOSYLATED Routine 05/24/2020 Type 2 diabetes mellitus without complication, with long-term current use of insulin MG SCREENING W REANNA MICHEAL DIGI Routine 04/13/2020 9:38 AM CDT Breast cancer screening by mammogram from Last 3 Months or Most Recently Relevant to Health Maintenance Results * LIPID PANEL (11/20/2024 4:15 AM ASSISTANT NEWS DIRECTOR) CHOLESTEROL 80 <200 MG/DL 11/20/2024 5:03 AM ASSISTANT NEWS DIRECTOR [facility] TRIGLYCERIDES 92 <150 MG/DL 11/20/2024 5:03 AM ASSISTANT NEWS DIRECTOR [facility] HDL 43 >40.0 MG/DL 11/20/2024 5:03 AM ASSISTANT NEWS DIRECTOR [facility] LDL (CALCULATED) 19 <100 MG/DL 11/20/19 5:03 AM [facility] NON HDL CHOLESTEROL 37 <130 MG/DL 11/20 5:03 AM [facility] CHOL/HDL RATIO 1.9 0.0 - 4.5 11/20/2024 5:03 AM [facility] VLDL CALCULATION 18 5 - 55 MG/DL 11/20/2024 5:03 AM [facility] LIPID INTERPRETATION 11/20/2024 5:03 AM [facility] Comment: [facility] CONCENSUS REPORT RECOMMENDATIONS: ADULT CHILD LOW RISK: CHOLESTEROL <200 <170 TRIGLYCERIDE <150 --- HDL >=60 --- LDL <100 <110 BORDERLINE: CHOLESTEROL 200-239 170-199 TRIGLYCERIDE 150-199 --- HDL 40-59 --- LDL 100-159 110-129 HIGH RISK: CHOLESTEROL >=240 >=200 TRIGLYCERIDE >=200 --- HDL <40 --- LDL >=160 >=130 11/20/2024 4:15 AM ASSISTANT NEWS DIRECTOR Dannie Clarke MD LABORATORY Final Result Performing Organization Address City/[facility]/ZIP Co de Phone Number [facility] [address] [address], [place] [phone] * DIABETIC RETINOPATHY EXAM (NEGATIVE)(SCAN) (04/12/2021) Documents Scanned SCANNING Final Result [facility] * HEMOGLOBIN, GLYCOSYLATED (05/24/2020) HGB A1C 6.9 % [address] [address] ([id number]) [place] 05/24/2020 Jean Mark MD LABORATORY Final Resul t [address] ([id number]), [place] [address] [place] [address], * MG SCREENING W REANNA MICHEAL DIGI [...] Documents on File Type Date Recorded Patient Foreign Language Interpreter Expl anation Advance Directives and Living Will 11/29/2024 9:26 AM 12/23/2013 POA FOR HEALTH CARE Power of Caseworker 02/07/2023 [facility] * Full Code (Latest Code Status on File) Date Activated Date Inactivated Comments 11/18/2024 7:42 PM 11/27/2024 4:16 PM Care Teams Forest Pathologist Relationship Specialty Start Date End Date Toribio Lomeli DO [address] [facility] [address] [place] [address] PCP - General INTERNAL MEDICINE 11/18/24
--- NOTE | 2025-05-10 07:27 | WPDHPUPDATE1 ---
History and Physical Update Update Date/Time: 05/10/25 07:27 History and Physical has been reviewed, including an updated exam of the patient. There are NO changes in the patient's condition. Risks, benefits, and alternatives have been discussed and questions answered. Patient agrees to proceed with procedure.
--- NOTE | 2025-05-10 07:31 | WPDHPUPDATE1 ---
History and Physical Update Update Date/Time: 05/10/25 07:31 History and Physical has been reviewed, including an updated exam of the patient. There are NO changes in the patient's condition. Risks, benefits, and alternatives have been discussed and questions answered. Patient agrees to proceed with procedure.
--- NOTE | 2025-05-10 07:51 | WPDANESEPPF ---
Anes - Initial Pre Proc Eval Procedure: Operation Date: 05/10/25 09:00 Proposed Procedures p Hysteroscopy Dilation and Curettage with Possible Removal of Endometrial Lesions, If Necessary - Osmin Leslie MD Date/Time: 05/10/25 07:51 Surgeon: Osmin Leslie MD Pre Op Diagnosis: Post Menopausal Bleeding Patient Data Age: 69 Gender: F Height: 1.68 m Weight: 96 kg Allergies Allergy/AdvReac Type Severity Reaction Status Date / Time Penicillins Allergy Mild Hives Verified 05/04/25 13:33 tetracycline Allergy Mild Hives Verified 05/04/25 13:33 Home Medications ?Medication ?Instructions ?Recorded ?Confirmed ?Type terbinafine HCl 250 mg tablet 250 mg PO Q48H 06/18/22 05/04/25 History latanoprost 0.005 % eye drops 1 drp LEFT EYE DAILY 04/11/24 05/04/25 History dapagliflozin propanediol 10 mg 10 mg PO DAILY #90 tabs 09/05/24 05/04/25 Rx tablet (Farxiga) metoprolol tartrate 50 mg tablet 50 mg PO Q12HR 30 days #60 tabs 12/06/24 05/04/25 Rx cholecalciferol (vitamin D3) 25 50 mcg PO DAILY 12/21/24 05/04/25 History mcg (1,000 unit) tablet (Vitamin D3) indapamide 2.5 mg tablet See Rx Instructions .Route 02/03/25 05/04/25 Rx .COMPLEX #90 tabs amlodipine 10 mg tablet 10 mg PO DAILY #90 tabs 02/10/25 05/04/25 Rx metformin 1,000 mg tablet See Rx Instructions .Route 02/10/25 05/04/25 Rx .COMPLEX #180 tabs atorvastatin 20 mg tablet 20 mg PO DAILY #90 tabs 03/17/25 05/04/25 Rx hydralazine 25 mg tablet 25 mg PO Q8HR 30 days #90 tabs 04/10/25 05/04/25 Rx irbesartan 300 mg tablet 300 mg PO DAILY #30 tabs 04/10/25 05/04/25 Rx Patient hx anesthesia problems: none Family hx anesthesia problems: none Results Review: All pre-operative results and documents have been reviewed as part of the pre-operative evaluation. [facility] Past Medical History Medical History Pacemaker Periodic limb movement disorder PAUL (obstructive sleep apnea) CKD (chronic kidney disease) CHF (congestive heart failure) Elevated cholesterol Allergies Hypertension Type 2 diabetes mellitus without complications Surgical History Surgical History Status post placement of cardiac pacemaker (~10/2024) History of tonsillectomy and adenoidectomy History of cataract surgery 2004 History of lung surgery 1965 Family History Family History Father Hypertension Cerebrovascular accident Mother Diabetes mellitus Cerebrovascular accident Hypertension Sibling Diabetes mellitus Hypertension Cerebrovascular accident Social History Social History Social History: Caffeine-soda Smoking status: Never smoker Alcohol intake: never Substance use: never Substance use type: does not use Do You Feel Safe in your Home?: Yes Lack of Transportation: No Lack of Food: Never True Current Housing: I Have Housing Concerned About Future Housing: No Difficulty Paying Gas/Electric Bills: No Difficulty Paying for Meds: No Currently Unemployed: No Education: High School Diploma/GED Difficulty w/ Childcare or Family Care: No Living arrangements: alone Gender identity (if verbalized by the patient): Female Spiritual care concerns: No Anes - Eval Final PreProcedure Day of Procedure 05/10/25 07:51 Patient weight: obese Lungs: normal air movement Airway: Mallampati scale class II Neurological: alert and oriented Last oral intake: >/= 8 hours ASA classification: IV Emergent: no Anesthetic plan: proceed Anesthesia type and monitoring: general GIVS and standard monitoring Results Review: All pre-operative results and documents have been reviewed as part of the pre-operative evaluation. HTN, hyperlipidemia, DM, CKD 3, obesity, PAUL on CPAP w cont O2 needs at 2-3 L. Informed Consent: The patient's anesthetic plan and its attendant risks and benefits were discussed with the patient/family/POA. Questions were solicited and answers provided to the satisfaction of the patient/family/POA.
[2025-05-10] MEDS: ACETAMINOPHEN 500 MG TABLET 1000 MG PO (08:20)
[2025-05-10] MEDS: ceFAZolin 2 GM in SODIUM CHLORIDE 0.9% IV 50 ML 100 ML IVPB (08:40)
[2025-05-10] MEDS: LIDOCAINE 1% LOCAL INJ 10 ML VIAL INFILTRATE (08:40)
--- NOTE | 2025-05-10 09:01 | S_PTH ---
PATIENT: Heidy Kaufman LOC: [facility]#:[id number] AGE/SX: 69/F ROOM: RE05/10/[address]: Osmin Leslie MD : [id number] BED: DIS: 05/10/2025 SPEC #: [id number] RECD: 05/10/25 11:04 STATUS: FAUZIA REQ #: [id number] CURTIS: 05/10/25 09:[address]: Osmin Leslie DEPT: [facility] Surgical RECD BY: Cynthia Cabrera ENTERED: 05/10/25 11:04 SP TYPE: Surgical OTHR DR: Toribio Lomeli, Tissues: A - Endometrial Curettings Procedures: Hematoxylin and Eosin Stain Estrogen Receptor Immuno Progestogen Receptor immuno Gross and Microscopic Level 4 CEA P53 MLH1 MSH2 MSH6 PMS2 Vimentin Mib Napsin A P16
[2025-05-10] MEDS: LACTATED RINGERS 1,000 ML 30 ML IV CONT (09:13)
--- NOTE | 2025-05-10 09:17 | W.PM.PROC2 ---
Procedure Note - Detailed Date of Procedure 05/10/25 Pre-op Diagnosis Post Menopausal Bleeding Post-op Diagnosis Same Procedure Performed D&C hysteroscopy and shavings of endometrial lesions. Surgeon Osmin Leslie MD Anesthesia General Indications Postmenopausal bleeding office endometrial biopsy nondiagnostic Findings uterus sound to 10 cm uterus filled with tissue could not identify normal lining. Some of the tissue appeared glandular. Small polyp structure at the cervix which was not present after the curettage. Description of Procedure After informed consent was obtained patient was taken to the operating room and She was not able to have adequate analgesia with IV sedation and therefore general anesthesia was administered. Attention was turned to the vagina. Speculum was inserted. Single-tooth tenaculum placed on the anterior lip of the cervix. The uterus was sounded to 10 cm. The cervix was dilated to an 8 Rankin dilator. The hysteroscope was inserted into the cavity. There was no normal uterine endometrial lining or atrophic lining seen. With multiple thicker type polypoid tissue throughout cavity. The Aveta instrument was inserted and multiple of the polypoid tissue was removed. A curettage was performed. The small polyp structure at cervix was not present after the curettage. The single-tooth tenaculum was removed hemostasis was noted at the tenaculum site. Sponge count correct. The patient taken to recovery in stable condition. Estimated Blood Loss 10 Drains No Packing No Pathology Yes ( endometrial curettings and shavings) Complications No immediate complications Condition Stable Disposition Same day [facility] Billing Surgery - Charge Forward: Surgery Billing
[2025-05-10] MEDS: oxyCODONE HCL (*CRX) 5 MG TAB IR PO (10:35)
== END 2025-05-10 11:15 | disposition home or self-care (01) ==
PROVIDERS: PCP Internal Medicine; Visit Provider Obstetrics & Gynecology
PROC: 0U5B8ZZ Destruction of Endometrium, Via Natural or Artificial Opening Endoscopic (ICD-10-PCS; CPT 58563; principal; 2025-05-10 09:00)
DX: C54.1 Malignant neoplasm of endometrium (principal); E11.22 Type 2 diabetes mellitus with diabetic chronic kidney disease; E78.00 Pure hypercholesterolemia, unspecified; G47.61 Periodic limb movement disorder; G47.33 Obstructive sleep apnea (adult) (pediatric); I13.0 Hypertensive heart and chronic kidney disease with heart failure and stage 1 through stage 4 chronic kidney disease, or unspecified chronic kidney disease; N18.30 Chronic kidney disease, stage 3 unspecified; I50.9 Heart failure, unspecified; Z79.84 Long term (current) use of oral hypoglycemic drugs; Z99.89 Dependence on other enabling machines and devices; Z98.890 Other specified postprocedural states; Z95.0 Presence of cardiac pacemaker
CPT/HCPCS: 58558; 82948; 88305; 88342; J0690; A9270; J2003; J2405; J2704; J3010; J7120